=== PATIENT | female | born 1945 | race African-American/Black ===

== ENCOUNTER 2016-05-04 20:06 | Inpatient (IN) | payer OTHER ==
--- NOTE | 2016-05-04 20:26 | PDOC ---
History of Present Illness - General History Source: Patient Exam Limitations: No Limitations - History of Present Illness Initial Comments: 05/04/16 21:45 The patient is a 70-year-old female with a significant past medical history of afib and hypertension, and presents to the emergency department with labored breathing, sore throat, chills, and a non-productive cough for 2 days. She reports that the sore throat is severe, and that it has been chilly at work and at home (she has not had heat at home recently). She reports that this respiratory episode occurs annually around this time of the year. The patient denies any sick contacts and loss of appetite. She denies any body aches or swelling that is different from baseline. She denies getting a flu shot. The patient denies chest pain, palpitations, headache and dizziness. The patient denies fever, nausea, vomit, diarrhea and constipation. The patient denies dysuria, frequency, urgency and hematuria. Allergies: NKDA Other PMHx: Arthritis injections Social History: Denies tobacco, ETOH, and drug use. PCP: Dr. Cruz <Susanna Greer - Last Filed: 05/04/16 21:45> <Jennifer Blount - Last Filed: 05/05/16 03:56> - General Chief Complaint: Respiratory Stated Complaint: CONGESTION Time Seen by Provider: 05/04/16 20:26 Past History <Susanna Greer - Last Filed: 05/04/16 21:45> - Past Medical History HTN: Yes Thyroid Disease: Yes (found nodules bilaterally) - Immunization History Immunization Up to Date: Yes (no flu vaccine) - Psycho/Social/Smoking Cessation Hx Anxiety: No Suicidal Ideation: No Smoking Status: No Smoking History: Never smoked Have you smoked in the past 12 months: No Number of Cigarettes Smoked Daily: 0 Hx Alcohol Use: No Drug/Substance Use Hx: No Substance Use Type: None Hx Substance Use Treatment: No <Jennifer Blount - Last Filed: 05/05/16 03:56> - Past Medical History Allergies/Adverse Reactions: Allergies Allergy/AdvReac Type Severity Reaction Status Date / Time No Known Allergies Allergy Verified 05/04/16 20:18 Home Medications: Ambulatory Orders Metoprolol Succinate [Toprol XL -] 50 mg PO DAILY 05/21/11 Olmesartan/Amlodipin/Hcthiazid [Tribenzor 40-5-25 mg Tablet] 1 each PO DAILY Dabigatran Etexilate Mesylate [Pradaxa -] 150 mg PO BID 05/04/16 Pravastatin Sodium 10 mg PO DAILY 05/04/16 Review of Systems - Review of Systems Able to Perform ROS?: Yes Comments:: 05/04/16 21:45 CONSTITUTIONAL: Present: (+) chills Absent: fever, diaphoresis, generalized weakness, malaise, loss of appetite HEENT: Present: (+) sore throat Absent: rhinorrhea, nasal congestion, throat swelling, difficulty swallowing, mouth swelling, ear pain, eye pain, visual changes CARDIOVASCULAR: Absent: chest pain, syncope, palpitations, irregular heart rate, lightheadedness , peripheral edema RESPIRATORY: Present: (+) cough, (+) shortness of breath Absent: dyspnea with exertion, orthopnea, wheezing, stridor, hemoptysis GASTROINTESTINAL: Absent: abdominal pain, abdominal distension, nausea, vomiting, diarrhea, constipation, melena, hematochezia GENITOURINARY: Absent: dysuria, frequency, urgency, hesitancy, hematuria, flank pain, genital pain MUSCULOSKELETAL: Absent: myalgia, arthralgia, joint swelling SKIN: Absent: rash, itching, pallor HEMATOLOGIC/IMMUNOLOGIC: Absent: easy bleeding, easy bruising, lymphadenopathy, frequent infections ENDOCRINE: Absent: unexplained weight gain, unexplained weight loss, heat intolerance, cold intolerance NEUROLOGIC: Absent: headache, focal weakness or paresthesias, dizziness, unsteady gait, seizure, mental status changes, bladder or bowel incontinence PSYCHIATRIC: Absent: anxiety, depression, suicidal or homicidal ideation, hallucinations. <Susanna Greer - Last Filed: 05/04/16 21:45> *Physical Exam - Vital Signs Last Vital Signs Temp Pulse Resp BP Pulse Ox 99.9 F H 82 20 154/89 97 05/04/16 20:18 05/04/16 20:18 05/04/16 20:18 05/04/16 21:23 05/04/16 20:18 - Physical Exam Comments: 05/04/16 21:46 GENERAL: Well developed, well nourished. Awake and alert. No acute distress. (+) Afebrile. HEENT: Normocephalic, atraumatic. PERRLA, EOMI. No conjunctival pallor. Sclera are non- icteric. Moist mucous membranes. Oropharynx is clear. NECK: Supple. Full ROM. No JVD. Carotid pulses 2+ and symmetric, without bruits. No thyromegaly. No lymphadenopathy. CARDIOVASCULAR: (+) Atrial fibrillation. Regular rate. No murmurs, rubs, or gallops. Distal pulses are 2+ and symmetric. PULMONARY: (+) Right-sided wheezing greater than left side. No rales or rhonchi. ABDOMINAL: Soft. Non-tender. Non-distended. No rebound or guarding. No organomegaly. Normoactive bowel sounds. MUSCULOSKELETAL Normal range of motion at all joints. No bony deformities or tenderness. No CVA tenderness/flank pain. EXTREMITIES: (+) Pitting edema midway up to the calves. No cyanosis. No clubbing. SKIN: Warm and dry. Normal capillary refill. No rashes. No jaundice. NEUROLOGICAL: Alert, awake, appropriate. Cranial nerves 2-12 intact. No deficits to light touch and temperature in face, upper extremities and lower extremities. No motor deficits in the in face, upper extremities and lower extremities. Normoreflexic in the upper and lower extremities. Normal speech. Toes are down- going bilaterally. Gait is normal without ataxia. PSYCHIATRIC: Cooperative. Good eye contact. Appropriate mood and affect. <Susanna Greer - Last Filed: 05/04/16 21:45> - Vital Signs Last Vital Signs Temp Pulse Resp BP Pulse Ox 99.9 F H 82 20 171/86 97 05/04/16 20:18 05/04/16 20:18 05/04/16 20:18 05/04/16 20:18 05/04/16 20:18 <Jennifer Blount - Last Filed: 05/05/16 03:56> ED Treatment Course - Medications Given in the ED: ED Medications Discontinued Medications Generic Name Dose Route Start Last Admin Trade Name Freq PRN Reason Stop Dose Admin Albuterol/Ipratropium 1 amp 05/04/16 20:54 05/04/16 20:54 Duoneb - NEB 05/04/16 20:55 1 amp ONCE ONE Administration <Susanna Greer - Last Filed: 05/04/16 21:45> - LABORATORY CBC & Chemistry Diagram: 05/04/16 22:18 05/04/16 23:27 <Jennifer Blount - Last Filed: 05/05/16 03:56> Medical Decision Making - Medical Decision Making 05/04/16 21:33 Pt comes with cough and cold; states that she had no heat in her house. She needs oil to heat her home. She comes to the ER for cough, sore throat, low grade temp. Pt has AFIB and HTN and she is complaint with all her meds. 05/05/16 03:54 Pt's repeat temp is 102 and she will be treated with levaquin for pneumonia vs UTI. She has been moore cultured and she will be admitted, as she is dehydrated, renal; insufficiency and cough and r/o pneumonia; r/o UTI.PMD is Annabu; Dr. Blue will admit the patient. <Jennifer Blount - Last Filed: 05/05/16 03:56> *DC/Admit/Observation/Transfer - Attestations Scribe Attestion: 05/04/16 21:46 Documentation prepared by Susanna Greer, acting as medical transcriber for Jennifer Blount MD. <Susanna Greer - Last Filed: 05/04/16 21:45> - Discharge Dispostion Admit: Yes <Jennifer Blount - Last Filed: 05/05/16 03:56> Diagnosis at time of Disposition: Upper respiratory infection, Renal insufficiency, Pneumonia, Cough - Referrals
[2016-05-04] MEDS ORDERED: ALBUTEROL SO4 2.5/IPRATROPIUM 0.5 INH SOL 3 ML VIAL.NEB. NEB ONE (20:54)
[2016-05-04 22:40] LABS: BASOPHIL 0.6 % (0-2.0); EOSINOPHIL 0.4 % (0-4.5); MCH 31.1 pg (25.7-33.7); MCHC 32.7 g/dl (32.0-36.0); MEAN CELL VOLUME 95.2 fl (80-96); MEAN PLT VOLUME 10.3 fl (7.5-11.1); NEUTROPHILS 82.8 % (42.8-82.8); PLATELET COUNT 260 K/MM3 (134-434); RDW 13.5 % (11.6-15.6); WHITE BLOOD COUNT 15.2 K/mm3 (4.0-10.0)
[2016-05-05 00:49] LABS: ALBUMIN 3.3 g/dl (3.4-5.0); BILIRUBIN,TOTAL 1.4 mg/dL (0.2-1.0); CALCIUM 8.8 mg/dL (8.5-10.1); CREATININE 1.4 mg/dL (0.55-1.02); TOT PROT 6.8 g/dl (6.4-8.2)
[2016-05-05] MEDS ORDERED: SODIUM CHLORIDE 0.9% 500 ML INFUS.BAG IV ONE (01:01)
[2016-05-05] MEDS ORDERED: LEVOFLOXACIN 500 MG IVPB 100 ML IVPB ONE (02:22)
[2016-05-05] MEDS ORDERED: ACETAMINOPHEN 325 MG TABLET (FP) ONE (02:29)
[2016-05-05] MEDS ORDERED: LEVOFLOXACIN 500 MG TABLET (FP) ONE (02:29)
[2016-05-05] MEDS ORDERED: ACETAMINOPHEN 325 MG TABLET (FP) PO ONE (02:30)
[2016-05-05 03:14] LABS: URINE APPEARANCE SLCLOUDY; URINE BILIRUBIN NEGATIVE (NEGATIVE); URINE BLOOD NEGATIVE (NEGATIVE); URINE COLOR YELLOW; URINE GLUCOSE (UA) NEGATIVE (NEGATIVE); URINE KETONE TRACE (NEGATIVE); URINE LEUK ESTERASE NEGATIVE (NEGATIVE); URINE NITRITE NEGATIVE (NEGATIVE); URINE PROTEIN NEGATIVE (NEGATIVE); URINE UROBILINOGEN NEGATIVE E.U./dl (0.2-1.0)
[2016-05-05 04:21] VITALS: BMI 39.6
[2016-05-05] MEDS ORDERED: ALBUTEROL SO4 2.5/IPRATROPIUM 0.5 INH SOL 3 ML VIAL.NEB. NEB PRN (06:28)
--- NOTE | 2016-05-05 08:27 | CON.CARD ---
Consult Consult Specialty:: Cardiology Referred by:: Dr. Blue Reason for Consultation:: Elevated BNP - History of Present Illness Chief Complaint: Fatigue, cough, dyspnea since Friday History of Present Illness: 70 yo female with paroxysmal atrial fibrillation (on Pradaxa), HTN, who was admitted with fatigue, sore throat, and non-productive cough, which began on Friday but has worsened over the past 2 days. Cardiology was consulted for evaluation of elevated BNP of 387. Patient was last seen by me in the office at [facility] on 03/08/16 and was diagnosed with new onset paroxysmal atrial fibrillation at that time and started on Pradaxa. She was also to have an echocardiogram through Dr. Cruz's office. However, patient reports that she was not had the echo yet. Denies chest pain, palpitations, orthopnea, or worsening leg edema. Denies melena, hematochezia, or hematemesis. CXR demonstrates cardiomegaly, but no reported infiltrates or effusions. ECG demonstrated sinus rhythm with LAFB and non-specific T wave abnormalities. - History Source History Provided By: Patient Limitations to Obtaining History: No Limitations - Past Medical History Cardio/Vascular: Yes: AFIB (paroxysmal afib diagnosed 03/08/16 (on Pradaxa)), CAD (Non-obstructive CAD per 03/12/11 cardiac cath), HTN, Hyperlipdemia Rheumatology: Yes: Gout - Past Surgical History Past Surgical History: Yes: None - Alcohol/Substance Use Hx Alcohol Use: No History of Substance Use: reports: None - Smoking History Smoking history: Never smoked Have you smoked in the past 12 months: No Aproximately how many cigarettes per day: 0 Home Medications - Allergies Allergies/Adverse Reactions: Allergies Allergy/AdvReac Type Severity Reaction Status Date / Time No Known Allergies Allergy Verified 05/04/16 20:18 - Home Medications Home Medications: Ambulatory Orders Metoprolol Succinate [Toprol XL -] 50 mg PO DAILY 05/21/11 Olmesartan/Amlodipin/Hcthiazid [Tribenzor 40-5-25 mg Tablet] 1 each PO DAILY Dabigatran Etexilate Mesylate [Pradaxa -] 150 mg PO BID 05/04/16 Pravastatin Sodium 10 mg PO DAILY 05/04/16 Family Disease History - Family Disease History Family Disease History: Heart Disease: Mother (pancreatic cancer, hypertension) , CA: Mother, Sister ( from malignant optic nerve tumor at age 31) Review of Systems - Review of Systems Constitutional: reports: Malaise HENT: reports: Other (sore throat) Respiratory: reports: Cough Gastrointestinal: denies: Abdominal Pain, Diarrhea, Melena, Nausea, Rectal Bleeding, Vomiting, Vomiting Blood Genitourinary: reports: No Symptoms Musculoskeletal: reports: No Symptoms Neurological: reports: No Symptoms Endocrine: reports: No Symptoms Hematology/Lymphatic: reports: No Symptoms Psychiatric: reports: No Symptoms Vital Signs: Vital Signs Temperature 98.4 F 05/05/16 06:00 Pulse Rate 73 05/05/16 06:00 Respiratory Rate 18 05/05/16 06:00 Blood Pressure 122/66 05/05/16 06:00 O2 Sat by Pulse Oximetry (%) 95 05/05/16 04:30 Constitutional: Yes: No Distress, Obese Eyes: Yes: Conjunctiva Clear, EOM Intact HENT: Yes: Atraumatic, Normocephalic Respiratory: Yes: CTA Bilaterally Gastrointestinal: Yes: Normal Bowel Sounds, Soft. No: Tenderness Cardiovascular: Yes: Regular Rate and Rhythm JVD: No Carotid Bruit: No Heart Sounds: Yes: S1, S2 Murmur: No: Systolic Murmur Extremities: Yes: WNL Edema: LLE: Trace, RLE: Trace Peripheral Pulses WNL: Yes Neurological: Yes: Alert, Oriented, Cran Nerves II-XII Intact Psychiatric: Yes: WNL - Other Data 05/04/16 ECG: Sinus with PACs, LAFB, non-specific T wave abnormalities Echo: Report Reviewed (08/31/14 Echo: Normal LV size and wall motion. LVEF 68%. Conc LVH. Grade II diastolic dysfunction. Mild MR. Mild TR.) Holter: Report Reviewed (06/16/15: Sinus rhythm, ave HR 62 (range 46-109 bpm), PVCs, sinus arrhythmia) Prior Cardiac Procedures: Cardiac Catheterization (03/12/11 Cardiac cath: LVEF 60%, mild diffuse LAD disease, 30-50% mid RCA) Imaging - Results Chest X-ray: Report Reviewed (Cardiomegaly.), Image Reviewed Other: Other (01/12/15 Dipyridamole Myoview: Probably normal myocardial perfusion. Breast attenuation artifact. LVEF 57%.) Assessment/Plan 70 yo female with paroxysmal atrial fibrillation (on Pradaxa), HTN, who was admitted with fatigue, sore throat, and non-productive cough, which began on Friday but has worsened over the past 2 days. Cardiology was consulted for evaluation of elevated BNP of 387. CXR demonstrates cardiomegaly, but no reported infiltrates or effusions. ECG demonstrated sinus rhythm with LAFB and non-specific T wave abnormalities. Despite mildly elevated BNP, no clinical suggestion of heart failure. Suspect patient's symptoms are due to viral URI. RECS: Echocardiogram to assess LV function and structural heart disease given recently diagnosed paroxysmal afib and elevated BNP. Continue metoprolol succinate 50 mg po daily Continue pravastatin 40 mg po daily Continue Pradaxa 150 mg po bid Patient normal takes Tribenzor 40-5-25 mg po daily. However, this med is not on formulary. Will give individual equivalents (amlodipine 5 mg, HCTZ 25 mg, and will substitute valsartan 160 mg for olmesartan 40 mg). If echo is unremarkable, patient may be discharged from cardiac standpoint. Will follow. Call with questions.
[2016-05-05 09:00] LABS: BASOPHIL 0.7 % (0-2.0); EOSINOPHIL 0.1 % (0-4.5); MCH 31.3 pg (25.7-33.7); MCHC 32.6 g/dl (32.0-36.0); MEAN PLT VOLUME 10.4 fl (7.5-11.1); NEUTROPHILS 83.6 % (42.8-82.8); PLATELET COUNT 268 K/MM3 (134-434); WHITE BLOOD COUNT 18.5 K/mm3 (4.0-10.0)
[2016-05-05] MEDS: HYDROCHLOROTHIAZIDE 25 MG TABLET (FP) PO SCH (09:09)
[2016-05-05] MEDS: DABIGATRAN ETEXILATE MESYLATE 150 MG CAPSULE PO SCH ×2 (09:09→21:40)
[2016-05-05] MEDS: METOPROLOL SUCCINATE 25 MG TAB.SR.24H (FP) PO SCH (09:09)
[2016-05-05] MEDS: amLODIPine BESYLATE 5 MG TABLET (FP) PO SCH (09:10)
[2016-05-05] MEDS: VALSARTAN 160 MG TABLET (UD) PO SCH (09:11)
[2016-05-05 09:27] LABS: ALBUMIN 3.1 g/dl (3.4-5.0); BILIRUBIN,TOTAL 1.7 mg/dL (0.2-1.0); CALCIUM 8.9 mg/dL (8.5-10.1); CREATININE 1.3 mg/dL (0.55-1.02); TOT PROT 6.8 g/dl (6.4-8.2)
[2016-05-05 09:30] LABS: TROPONIN I 0.02 ng/ml (0.00-0.05)
[2016-05-05] MEDS ORDERED: HCTHIAZID PO SCH (10:00)
[2016-05-05] MEDS ORDERED: OLMESARTAN PO SCH (10:00)
[2016-05-05] MEDS ORDERED: VALSARTAN 160 MG TABLET (UD) PO SCH (10:00)
[2016-05-05] MEDS ORDERED: PNEUMOC 13-VAL CONJ-DIP CRM/PF 0.5 ML DISP.SYRIN IM ONE (10:00)
[2016-05-05] MEDS ORDERED: INFLUENZA VACCINE 45 MCG/0.5 ML (MDV 16-17) IM ONE (10:00)
[2016-05-05] MEDS ORDERED: AMLODIPIN PO SCH (10:00)
[2016-05-05] MEDS ORDERED: HEPARIN NA (PORCINE) 5,000 UNITS/ML 1ML VIAL SQ SCH (10:00)
[2016-05-05] MEDS ORDERED: [UNRECOGNIZED DRUG - OTHER] PO SCH (10:00)
--- NOTE | 2016-05-05 10:13 | HP ---
Admitting History and Physical - Primary Care Physician PCP: Delio Cruz - Admission Chief Complaint: uri History Source: Medical Record - Past Medical History Cardiovascular: Yes: AFIB (paroxysmal afib diagnosed 03/08/16 (on Pradaxa)), CAD (Non-obstructive CAD per 03/12/11 cardiac cath), HTN, Hyperlipdemia Rheumatology: Yes: Gout - Past Surgical History Past Surgical History: Yes: None - Smoking History Smoking history: Never smoked Have you smoked in the past 12 months: No Aproximately how many cigarettes per day: 0 - Alcohol/Substance Use Hx Alcohol Use: No History of Substance Use: reports: None Home Medications - Allergies Allergies/Adverse Reactions: Allergies Allergy/AdvReac Type Severity Reaction Status Date / Time No Known Allergies Allergy Verified 05/04/16 20:18 - Home Medications Home Medications: Ambulatory Orders Metoprolol Succinate [Toprol XL -] 50 mg PO DAILY 05/21/11 Olmesartan/Amlodipin/Hcthiazid [Tribenzor 40-5-25 mg Tablet] 1 each PO DAILY Dabigatran Etexilate Mesylate [Pradaxa -] 150 mg PO BID 05/04/16 Pravastatin Sodium 10 mg PO DAILY 05/04/16 Family Disease History - Family Disease History Family Disease History: Heart Disease: Mother (pancreatic cancer, hypertension) , CA: Mother, Sister ( from malignant optic nerve tumor at age 31) Physical Examination Vital Signs: Vital Signs Temperature 99.4 F 05/05/16 08:40 Pulse Rate 106 H 05/05/16 08:40 Respiratory Rate 20 05/05/16 08:40 Blood Pressure 113/74 05/05/16 08:40 O2 Sat by Pulse Oximetry (%) 95 05/05/16 04:30 Labs: CBC, BMP 05/05/16 08:25 05/05/16 08:25 Imaging - Results Chest X-ray: Report Reviewed Ultrasound: Report Reviewed Problem List - Problems (1) Cough Code(s): R05 - COUGH (2) Pneumonia Code(s): J18.9 - PNEUMONIA, UNSPECIFIED ORGANISM (3) Renal insufficiency Code(s): N28.9 - DISORDER OF KIDNEY AND URETER, UNSPECIFIED (4) Upper respiratory infection Code(s): J06.9 - ACUTE UPPER RESPIRATORY INFECTION, UNSPECIFIED (5) Atrial fibrillation Code(s): I48.91 - UNSPECIFIED ATRIAL FIBRILLATION Assessment/Plan (1) Cough Code(s): R05 - COUGH pulm & id consulted iv abx o2 n/c (2) Pneumonia Code(s): J18.9 - PNEUMONIA, UNSPECIFIED ORGANISM (3) Renal insufficiency Code(s): N28.9 - DISORDER OF KIDNEY AND URETER, UNSPECIFIED renal consulted improved renal sono shows no obstruction (4) Upper respiratory infection Code(s): J06.9 - ACUTE UPPER RESPIRATORY INFECTION, UNSPECIFIED (5) Atrial fibrillation Code(s): I48.91 - UNSPECIFIED ATRIAL FIBRILLATION trop neg bnp increased appreciate cardio note - f/u echo [employer]
--- NOTE | 2016-05-05 10:28 | CON.PULM ---
Consult Consult Specialty:: PULM/CCM Referred by:: SUSAN Reason for Consultation:: SOB - History of Present Illness Chief Complaint: SOB / fever History of Present Illness: 70 F, Paroxysmal atrial fibrillation on Pradaxa and HTN. (+) snoring and possible OSAS (has never been screened). Admitted via the ER due to fatigue, sore throat, chills, rigors, and non- productive cough. No travel history or sick contacts. No hemoptysis. 102 fever documented. CXR : no acute process - History Source History Provided By: Patient Limitations to Obtaining History: No Limitations - Past Medical History Cardio/Vascular: Yes: AFIB (paroxysmal afib diagnosed 03/08/16 (on Pradaxa)), CAD (Non-obstructive CAD per 03/12/11 cardiac cath), HTN, Hyperlipdemia Rheumatology: Yes: Gout - Past Surgical History Past Surgical History: Yes: None - Alcohol/Substance Use Hx Alcohol Use: No History of Substance Use: reports: None - Smoking History Smoking history: Never smoked Have you smoked in the past 12 months: No Aproximately how many cigarettes per day: 0 Home Medications - Allergies Allergies/Adverse Reactions: Allergies Allergy/AdvReac Type Severity Reaction Status Date / Time No Known Allergies Allergy Verified 05/04/16 20:18 - Home Medications Home Medications: Ambulatory Orders Metoprolol Succinate [Toprol XL -] 50 mg PO DAILY 05/21/11 Olmesartan/Amlodipin/Hcthiazid [Tribenzor 40-5-25 mg Tablet] 1 each PO DAILY Dabigatran Etexilate Mesylate [Pradaxa -] 150 mg PO BID 05/04/16 Pravastatin Sodium 10 mg PO DAILY 05/04/16 Family Disease History - Family Disease History Family Disease History: Heart Disease: Mother (pancreatic cancer, hypertension) , CA: Mother, Sister ( from malignant optic nerve tumor at age 31) Review of Systems - Review of Systems Constitutional: reports: Chills, Fever, Lethargy, Malaise, Weakness. denies: Night Sweats, Unintentional Wgt. Loss Eyes: reports: No Symptoms HENT: reports: Difficult Swallowing, Nasal Congestion, Throat Pain. denies: Gingival Bleeding, Hearing Loss, Toothache Neck: reports: No Symptoms Cardiovascular: reports: Shortness of Breath. denies: Chest Pain, Edema, Palpitations Respiratory: reports: Cough, Snoring, SOB, SOB on Exertion. denies: Hemoptysis , Wheezing Gastrointestinal: reports: No Symptoms Genitourinary: reports: No Symptoms Breasts: reports: No Symptoms Reported Musculoskeletal: reports: No Symptoms Integumentary: reports: No Symptoms Neurological: reports: No Symptoms Endocrine: reports: No Symptoms Hematology/Lymphatic: reports: No Symptoms Psychiatric: reports: No Symptoms Physical Exam Vital Sings: Vital Signs Temperature 99.4 F 05/05/16 08:40 Pulse Rate 106 H 05/05/16 08:40 Respiratory Rate 20 05/05/16 08:40 Blood Pressure 113/74 05/05/16 08:40 O2 Sat by Pulse Oximetry (%) 95 05/05/16 04:30 Constitutional: Yes: No Distress, Calm, Obese Eyes: Yes: Conjunctiva Clear, EOM Intact HENT: Yes: Atraumatic, Normocephalic, Pharyngeal Erythema Neck: Yes: Supple, Trachea Midline Cardiovascular: Yes: Regular Rate and Rhythm Respiratory: Yes: CTA Bilaterally. No: Accessory Muscle Use, Rales, Rhonchi, Stridor, Wheezes ...Inspection: Yes: WNL ...Clubbing: No Gastrointestinal: Yes: Normal Bowel Sounds, Soft, Abdomen, Obese Renal/: Yes: WNL Musculoskeletal: Yes: WNL Extremities: Yes: WNL Edema: No Peripheral Pulses WNL: Yes Integumentary: Yes: WNL Neurological: Yes: WNL, Alert, Oriented ...Motor Strength: WNL Psychiatric: Yes: WNL, Alert, Oriented Labs: CBC, BMP 05/05/16 08:25 05/05/16 08:25 Imaging - Results Chest X-ray: Report Reviewed, Image Reviewed Problem List - Problems (1) Cough Code(s): R05 - COUGH (2) Renal insufficiency Code(s): N28.9 - DISORDER OF KIDNEY AND URETER, UNSPECIFIED (3) Upper respiratory infection Code(s): J06.9 - ACUTE UPPER RESPIRATORY INFECTION, UNSPECIFIED (4) Atrial fibrillation Code(s): I48.91 - UNSPECIFIED ATRIAL FIBRILLATION Assessment/Plan PLAN: Will start on Tamiflu No ABX for now Would monitor off systemic steroids O2 as needed Either mask/isolation VTE prophylaxis Sleep apnea screening after discharge Will follow Thank you. Dr Richter
[2016-05-05] MEDS ORDERED: PT OWN MED DRAWER 7, Y5N ONE (10:32)
--- NOTE | 2016-05-05 10:48 | CONSULT ---
Consult - text type - Consultation Consultation Note: Renal Consult for VLAD vs CKD This is a 70 year old woman with PMhx of Afib ON pradaxa, Hypertension (x 10 years) who presented with cough and chills and admitted for Fever/URI r/o Flu and found to have BUN/Cr of 22/1.4. Pt denies any CKD history. No Hx of Kidney stones, frequent UTI's. Reports that BP has been well controlled. No NSAID use. No Lisa/ARB. No hematuria or flank pain. No Recent Abx use. No rash. Reports good urine output. Has slight decrease in oral intake. No SOB. + Chest pain with cough. PMhx: as above Allergies: NKDA Family hx: NC Social Hx: No T/A/D ROS: as per HPI, all other pertinent ros negative Home Meds: Home Medications Medication Instructions Recorded Metoprolol Succinate [Toprol XL -] 50 mg PO DAILY 05/21/11 Olmesartan/Amlodipin/Hcthiazid 1 each PO DAILY 08/12/14 [Tribenzor 40-5-25 mg Tablet] Dabigatran Etexilate Mesylate 150 mg PO BID 05/04/16 [Pradaxa -] Pravastatin Sodium 10 mg PO DAILY 05/04/16 Vital Signs Temperature 99.4 F 05/05/16 08:40 Pulse Rate 106 H 05/05/16 08:40 Respiratory Rate 20 05/05/16 08:40 Blood Pressure 113/74 05/05/16 08:40 O2 Sat by Pulse Oximetry (%) 95 05/05/16 04:30 Intake & Output 05/02/16 05/03/16 05/04/16 05/05/16 23:59 23:59 23:59 23:59 Weight 230 lb 224 lb Gen: NAD, Coughing HEENT: NC/AT, MMM, No JVD CVS: irregular, NO M/R Lungs: CTA, no rales or wheeze Abd: soft NT/ND Ext: Trace to 1+ edema in the LE, no clubbing or cyanosis Neuro: No focal defects CBC, BMP 05/05/16 08:25 05/05/16 08:25 Laboratory Tests 05/05/16 05/05/16 05/05/16 03:00 08:25 08:25 MCV 96.0 Calcium 8.9 Total Bilirubin 1.7 H D AST 12 L ALT 12 Alkaline Phosphatase 80 Total Protein 6.8 Albumin 3.1 L Urine pH 6.0 Urine Protein Negative Urine Ketones Trace H Urine Blood Negative Current Medications Albuterol/Ipratropium (Duoneb -) 1 amp NEB Q4H PRN PRN Reason: SHORTNESS OF BREATH Amlodipine Besylate (Norvasc -) 5 mg PO DAILY [facility] Last Admin: 05/05/16 09:10 Dose: 5 mg Dabigatran (Pradaxa -) 150 mg PO BID [facility] Last Admin: 05/05/16 09:09 Dose: 150 mg Hydrochlorothiazide (Hctz -) 25 mg PO DAILY [facility] Last Admin: 05/05/16 09:09 Dose: 25 mg Metoprolol Succinate (Toprol Xl -) 50 mg PO DAILY [facility] Last Admin: 05/05/16 09:09 Dose: 50 mg Non-Formulary Medication (Pravastatin Sodium [Pravastatin Sodium]) 10 mg PO [facility] Oseltamivir Phosphate (Tamiflu -) 75 mg PO BID [facility] Stop: 05/10/16 10:29 Valsartan (Diovan -) 160 mg PO DAILY [facility] Last Admin: 05/05/16 09:11 Dose: 160 mg A/P 70 year old woman with PMhx of Afib ON pradaxa, Hypertension (x 10 years) who presented with cough and chills and admitted for Fever/URI r/o Flu and found to have BUN/Cr of 22/1.4. #VLAD vs. CKD No history of CKD Check UPCR, FeNA Trend BUN/Cr continue Valsartan/HCTZ for now Check Renal US to access kidney size and texture Dose all meds for Cr Cl less then 50 #URI/r/o Flu/Leukocytosis Continue emperic Tamiflu F/u cultures #Hypertension continue current meds #Afib continue Pradaxa rate control as per cardiology Thank you Loyd Jeronimo DO
[2016-05-05] MEDS: OSELTAMIVIR PHOSPHATE 75 MG CAPSULE PO SCH ×2 (12:52→21:41)
--- NOTE | 2016-05-05 14:30 | PN ---
Progress Note (short form) - Note Progress Note: ID Consult dictated URI Probable viral syndrome v. Influenza Leukocytosis Pending w/u, empiric levaquin/ Tamiflu Droplet precautions
--- NOTE | 2016-05-05 15:46 | CONS ---
DATE OF CONSULTATION: 05/05/2016 The patient is a 70-year-old female who is evaluated for respiratory tract infection. She was admitted to the hospital on May 04, 2016, with a several-day history of sore throat, subjective fever, chills, shortness of breath, nonproductive cough. She was evaluated in the emergency room. She was noted to have fever of 102. Chest x-ray was negative for acute infiltrate. An influenza rapid test was performed and was negative. Patient states that she had been exposed to a cold environment at her home as she ran out of heating oil. 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 She did not receive influenza vaccine prior to admission. No recent travel or significant pet exposure. She is a nonsmoker. Past medical history positive for osteoarthritis, hypertension, hyperlipidemia, atrial fibrillation, gouty arthritis. No known allergies. MEDICATIONS: Toprol, Pradaxa, pravastatin, Tribenzor. SOCIAL HISTORY: The patient lives at home, is a nonsmoker, nondrinker. No history of illicit drug use. She works with mentally disabled individuals in a half-way. SYSTEMS REVIEW: Neurologic: No loss of consciousness, seizure activity, focal weakness. Cardiac: Negative chest pain or palpitations. Respiratory: As per HPI. Gastrointestinal: Negative vomiting or diarrhea. Genitourinary: Negative for urinary tract infection. LABORATORY DATA: White count 18.5, 83 neutrophils, 8 lymphocytes, 7 monocytes, hematocrit 34.3. BUN 20, creatinine 1.3. Blood and urine cultures are pending. Throat culture negative. Negative streptococcal antigen. Flu rapid test negative. Chest x-ray shows enlarged heart, no focal infiltrate. PHYSICAL EXAMINATION: General: She is awake and alert, she is obese, is not acutely short of breath. Positive dry cough. Vital Signs: Temperature 99.4. T-max 102. Blood pressure 113/74. Pulse 106, regular. Respiration 20 per minute. Eyes: Sclerae anicteric. Heart Sounds: S1, S2. Lungs: Clear breath sounds bilaterally. No rhonchi, rales or wheezing. Abdomen: Obese, soft, nontender. Extremities: Positive for edema. IMPRESSION: 1. Upper respiratory tract infection. 2. Probable viral syndrome versus acute influenza. 3. Leukocytosis. 4. Azotemia. Pending workup, empiric Levaquin 750 mg IV piggyback daily. Would continue Tamiflu despite negative influenza antigen. Droplet precautions. Will follow. Thank you for the kind referral. WAYNE MACEDO M.D. [id number]
[2016-05-05] MEDS: PATIENT'S OWN MEDICATION (NON-FORMULARY) (Pravastatin Sodium [Pravastatin Sodium] 10 MG) PO SCH (21:41)
--- NOTE | 2016-05-05 22:11 | EKG ---
Test Reason : Blood Pressure : / mmHG Vent. Rate : 079 BPM Atrial Rate : 079 BPM P-R Int : 188 ms QRS Dur : 104 ms QT Int : 394 ms P-R-T Axes : 068 -51 088 degrees QTc Int : 451 ms SINUS RHYTHM WITH PREMATURE ATRIAL COMPLEXES LEFT AXIS DEVIATION POSSIBLE ANTERIOR INFARCT , AGE UNDETERMINED T-WAVE INVERSION IN ANTERIOR LEADS AND ANTEROLATERAL LEADS ABNORMAL ECG WHEN COMPARED WITH ECG OF 12-AUG-2014 15:40, INVERTED T WAVES HAVE REPLACED NONSPECIFIC T WAVE ABNORMALITY IN LATERAL LEADS Confirmed by SVEN ORTEGA, CARIDAD (2016) on 05/05/2016 10:10:29 PM Referred By: Confirmed By:CARIDAD MACHUCA MD
[2016-05-06 07:54] LABS: BASOPHIL 0.1 % (0-2.0); EOSINOPHIL 0.5 % (0-4.5); MCH 31.1 pg (25.7-33.7); MCHC 32.3 g/dl (32.0-36.0); MEAN CELL VOLUME 96.5 fl (80-96); MEAN PLT VOLUME 10.7 fl (7.5-11.1); NEUTROPHILS 83.6 % (42.8-82.8); PLATELET COUNT 241 K/MM3 (134-434); RDW 13.4 % (11.6-15.6); WHITE BLOOD COUNT 18.7 K/mm3 (4.0-10.0)
[2016-05-06 08:24] LABS: ALBUMIN 3.1 g/dl (3.4-5.0); BILIRUBIN,TOTAL 1.5 mg/dL (0.2-1.0); CALCIUM 8.8 mg/dL (8.5-10.1); CREATININE 1.4 mg/dL (0.55-1.02); TOT PROT 6.5 g/dl (6.4-8.2)
[2016-05-06 08:27] LABS: TROPONIN I 0.03 ng/ml (0.00-0.05)
[2016-05-06] MEDS: LEVOFLOXACIN 750 MG IVPB 150 ML IVPB SCH (09:32)
[2016-05-06] MEDS: HYDROCHLOROTHIAZIDE 25 MG TABLET (FP) PO SCH (09:32)
[2016-05-06] MEDS: DABIGATRAN ETEXILATE MESYLATE 150 MG CAPSULE PO SCH ×2 (09:33→21:21)
[2016-05-06] MEDS: amLODIPine BESYLATE 5 MG TABLET (FP) PO SCH (09:33)
[2016-05-06] MEDS: VALSARTAN 160 MG TABLET (UD) PO SCH (09:33)
[2016-05-06] MEDS: OSELTAMIVIR PHOSPHATE 75 MG CAPSULE PO SCH ×2 (09:34→21:22)
[2016-05-06] MEDS: METOPROLOL SUCCINATE 25 MG TAB.SR.24H (FP) PO SCH (09:34)
--- NOTE | 2016-05-06 09:58 | PN ---
Progress Note (short form) - Note Progress Note: PULMONARY Coughing fits overnight nonproductive with rib pain. No wheezing. Last Vital Signs Temp Pulse Resp BP Pulse Ox 99.2 F 107 H 18 129/88 94 L 05/06/16 05:55 05/06/16 05:55 05/06/16 05:55 05/06/16 05:55 05/05/16 21:00 Gen: NAD in chair Heart: RRR Lung: distant breath sounds, no wheezes, left base rales Abd: soft, nontender Ext: trace edema CBC, BMP 05/06/16 06:05 05/06/16 06:05 Active Medications Albuterol/Ipratropium (Duoneb -) 1 amp NEB Q4H PRN PRN Reason: SHORTNESS OF BREATH Amlodipine Besylate (Norvasc -) 5 mg PO DAILY [facility] Last Admin: 05/06/16 09:33 Dose: 5 mg Dabigatran (Pradaxa -) 150 mg PO BID [facility] Last Admin: 05/06/16 09:33 Dose: 150 mg Hydrochlorothiazide (Hctz -) 25 mg PO DAILY [facility] Last Admin: 05/06/16 09:32 Dose: 25 mg Levofloxacin (Levaquin 750 Mg Premixed Ivpb -) 150 mls @ 100 mls/hr IVPB DAILY [facility] Last Admin: 05/06/16 09:32 Dose: 100 mls/hr Metoprolol Succinate (Toprol Xl -) 50 mg PO DAILY [facility] Last Admin: 05/06/16 09:34 Dose: 50 mg Non-Formulary Medication (Pravastatin Sodium [Pravastatin Sodium]) 10 mg PO HS [facility] Last Admin: 05/05/16 21:41 Dose: Not Given Oseltamivir Phosphate (Tamiflu -) 75 mg PO BID [facility] Stop: 05/10/16 10:29 Last Admin: 05/06/16 09:34 Dose: 75 mg Valsartan (Diovan -) 160 mg PO DAILY [facility] Last Admin: 05/06/16 09:33 Dose: 160 mg A/P URI vs Pneumonia CKD Atrial Fibrillation HTN - continue tamiflu - antibiotics per ID - will change inhaled bronchodilators to standing and PRN - cough suppressants - incentive spirometry - O2 as needed - continue anticoagulation
[2016-05-06] MEDS ORDERED: guaiFENesin/CODEINE 10 ML UNIT-DOSE CUPS PO PRN (10:01)
[2016-05-06] MEDS ORDERED: guaiFENesin/CODEINE 5 ML UNIT-DOSE CUPS PO PRN (10:02)
[2016-05-06] MEDS ORDERED: ALBUTEROL SO4 0.083% IH SOL 2.5 MG/3 ML VIAL.NEB. NEB PRN (10:06)
--- NOTE | 2016-05-06 10:11 | PN ---
Progress Note, Physician History of Present Illness: No new complaints. Continues to cough and has chest pain with coughing only. - Current Medication List Current Medications: Active Medications Albuterol Sulfate (Ventolin 0.083% Nebulizer Soln -) 1 amp NEB Q4H PRN PRN Reason: SHORT OF BREATH/WHEEZING Albuterol/Ipratropium (Duoneb -) 1 amp NEB TID [facility] Amlodipine Besylate (Norvasc -) 5 mg PO DAILY [facility] Last Admin: 05/06/16 09:33 Dose: 5 mg Dabigatran (Pradaxa -) 150 mg PO BID [facility] Last Admin: 05/06/16 09:33 Dose: 150 mg Guaifenesin/Codeine Phosphate (Robitussin Ac -) 10 ml PO Q8H PRN PRN Reason: COUGH Hydrochlorothiazide (Hctz -) 25 mg PO DAILY [facility] Last Admin: 05/06/16 09:32 Dose: 25 mg Levofloxacin (Levaquin 750 Mg Premixed Ivpb -) 150 mls @ 100 mls/hr IVPB DAILY [facility] Last Admin: 05/06/16 09:32 Dose: 100 mls/hr Metoprolol Succinate (Toprol Xl -) 50 mg PO DAILY [facility] Last Admin: 05/06/16 09:34 Dose: 50 mg Non-Formulary Medication (Pravastatin Sodium [Pravastatin Sodium]) 10 mg PO HS [facility] Last Admin: 05/05/16 21:41 Dose: Not Given Oseltamivir Phosphate (Tamiflu -) 75 mg PO BID [facility] Stop: 05/10/16 10:29 Last Admin: 05/06/16 09:34 Dose: 75 mg Valsartan (Diovan -) 160 mg PO DAILY [facility] Last Admin: 05/06/16 09:33 Dose: 160 mg - Objective Vital Signs: Vital Signs Temperature 99.2 F 05/06/16 05:55 Pulse Rate 107 H 05/06/16 05:55 Respiratory Rate 18 05/06/16 05:55 Blood Pressure 129/88 05/06/16 05:55 O2 Sat by Pulse Oximetry (%) 94 L 05/05/16 21:00 Constitutional: Yes: Well Nourished, No Distress Eyes: Yes: Conjunctiva Clear, EOM Intact HENT: Yes: Atraumatic, Normocephalic Cardiovascular: Yes: Regular Rate and Rhythm Respiratory: Yes: CTA Bilaterally Edema: No Neurological: Yes: Alert, Oriented Psychiatric: Yes: WNL Labs: CBC, BMP 05/06/16 06:05 05/06/16 06:05 Assessment/Plan 70 yo female with paroxysmal atrial fibrillation (on Pradaxa), HTN, who was admitted with fatigue, sore throat, and non-productive cough, which began on Friday but has worsened over the past 2 days. Cardiology was consulted for evaluation of elevated BNP of 387. CXR demonstrates cardiomegaly, but no reported infiltrates or effusions. ECG demonstrated sinus rhythm with LAFB and non-specific T wave abnormalities. Despite mildly elevated BNP, no clinical suggestion of heart failure. Suspect patient's symptoms are due to viral URI. RECS: Echocardiogram pending today to assess LV function and structural heart disease given recently diagnosed paroxysmal afib and elevated BNP. Continue metoprolol succinate 50 mg po daily Continue pravastatin 40 mg po daily Continue Pradaxa 150 mg po bid Patient normal takes Tribenzor 40-5-25 mg po daily. However, this med is not on formulary. Will give individual equivalents (amlodipine 5 mg, HCTZ 25 mg, and will substitute valsartan 160 mg for olmesartan 40 mg). If echo is unremarkable, patient may be discharged from cardiac standpoint. Will follow. Call with questions.
--- NOTE | 2016-05-06 10:23 | PN ---
Progress Note, Physician Chief Complaint: ID Tamiflu & Levofloxacin Feels better though dry couph still persistent and has chest pain realted to couphing - Current Medication List Current Medications: Active Medications Albuterol Sulfate (Ventolin 0.083% Nebulizer Soln -) 1 amp NEB Q4H PRN PRN Reason: SHORT OF BREATH/WHEEZING Albuterol/Ipratropium (Duoneb -) 1 amp NEB TID [facility] Amlodipine Besylate (Norvasc -) 5 mg PO DAILY [facility] Last Admin: 05/06/16 09:33 Dose: 5 mg Dabigatran (Pradaxa -) 150 mg PO BID [facility] Last Admin: 05/06/16 09:33 Dose: 150 mg Guaifenesin/Codeine Phosphate (Robitussin Ac -) 10 ml PO Q8H PRN PRN Reason: COUGH Hydrochlorothiazide (Hctz -) 25 mg PO DAILY [facility] Last Admin: 05/06/16 09:32 Dose: 25 mg Levofloxacin (Levaquin 750 Mg Premixed Ivpb -) 150 mls @ 100 mls/hr IVPB DAILY [facility] Last Admin: 05/06/16 09:32 Dose: 100 mls/hr Metoprolol Succinate (Toprol Xl -) 50 mg PO DAILY [facility] Last Admin: 05/06/16 09:34 Dose: 50 mg Non-Formulary Medication (Pravastatin Sodium [Pravastatin Sodium]) 10 mg PO HS [facility] Last Admin: 05/05/16 21:41 Dose: Not Given Oseltamivir Phosphate (Tamiflu -) 75 mg PO BID [facility] Stop: 05/10/16 10:29 Last Admin: 05/06/16 09:34 Dose: 75 mg Valsartan (Diovan -) 160 mg PO DAILY [facility] Last Admin: 05/06/16 09:33 Dose: 160 mg - Objective Vital Signs: Vital Signs Temperature 99.2 F 05/06/16 05:55 Pulse Rate 107 H 05/06/16 05:55 Respiratory Rate 18 05/06/16 05:55 Blood Pressure 129/88 05/06/16 05:55 O2 Sat by Pulse Oximetry (%) 94 L 05/05/16 21:00 Constitutional: Yes: Well Nourished, No Distress Eyes: Yes: WNL, Conjunctiva Clear HENT: Yes: WNL, Atraumatic Neck: Yes: WNL, Supple Cardiovascular: Yes: Regular Rate and Rhythm, S1, S2 Respiratory: Yes: Rales Gastrointestinal: Yes: Soft. No: Tenderness, Epigastrium Edema: No Labs: CBC, BMP 05/06/16 06:05 05/06/16 06:05 Assessment/Plan Microbiology 05/04/16 20:45 Throat Throat Culture - Final 05/04/16 20:45 Throat Group A Strep Rapid Antigen - Final NO BETA HEMOLYTIC STREPTOCOCCI ISOLATED 05/04/16 20:45 Nasopharyngeal Swab Influenza Types A,B Antigen (PRASANTH) - Final 05/04/16 20:45 Nasopharyngeal Swab - Final 05/04/16 23:00 Blood - Peripheral Venous Blood Culture - Preliminary NO GROWTH OBTAINED AFTER 24 HOURS, INCUBATION TO CONTINUE FOR 4 DAYS. 05/04/16 22:15 Blood - Peripheral Venous Blood Culture - Preliminary NO GROWTH OBTAINED AFTER 24 HOURS, INCUBATION TO CONTINUE FOR 4 DAYS. Laboratory Tests 05/06/16 05/06/16 06:05 06:05 WBC 18.7 H Hgb 10.6 L Plt Count 241 BUN 23 H Creatinine 1.4 H Assessment URI bronchititis though pneumonia Persistent WBC elevation out of line with suspected viral illness though could have pneumonia Plan Continue Levofloxacin Repeat the chest xray Tamiflu Moniter the WBC Cecy ORTEGA
--- NOTE | 2016-05-06 12:35 | PN ---
Progress Note, Physician Chief Complaint: sittig eatign lunch backfrom stress test pllerutic chest pain with coughing only says she feels better since admission - Current Medication List Current Medications: Active Medications Albuterol Sulfate (Ventolin 0.083% Nebulizer Soln -) 1 amp NEB Q4H PRN PRN Reason: SHORT OF BREATH/WHEEZING Albuterol/Ipratropium (Duoneb -) 1 amp NEB TID [facility] Amlodipine Besylate (Norvasc -) 5 mg PO DAILY [facility] Last Admin: 05/06/16 09:33 Dose: 5 mg Dabigatran (Pradaxa -) 150 mg PO BID [facility] Last Admin: 05/06/16 09:33 Dose: 150 mg Guaifenesin/Codeine Phosphate (Robitussin Ac -) 10 ml PO Q8H PRN PRN Reason: COUGH Hydrochlorothiazide (Hctz -) 25 mg PO DAILY [facility] Last Admin: 05/06/16 09:32 Dose: 25 mg Levofloxacin (Levaquin 750 Mg Premixed Ivpb -) 150 mls @ 100 mls/hr IVPB DAILY [facility] Last Admin: 05/06/16 09:32 Dose: 100 mls/hr Metoprolol Succinate (Toprol Xl -) 50 mg PO DAILY [facility] Last Admin: 05/06/16 09:34 Dose: 50 mg Non-Formulary Medication (Pravastatin Sodium [Pravastatin Sodium]) 10 mg PO HS [facility] Last Admin: 05/05/16 21:41 Dose: Not Given Oseltamivir Phosphate (Tamiflu -) 75 mg PO BID [facility] Stop: 05/10/16 10:29 Last Admin: 05/06/16 09:34 Dose: 75 mg Valsartan (Diovan -) 160 mg PO DAILY [facility] Last Admin: 05/06/16 09:33 Dose: 160 mg - Objective Vital Signs: Vital Signs Temperature 99.2 F 05/06/16 05:55 Pulse Rate 107 H 05/06/16 05:55 Respiratory Rate 18 05/06/16 05:55 Blood Pressure 129/88 05/06/16 05:55 O2 Sat by Pulse Oximetry (%) 94 L 05/05/16 21:00 Constitutional: Yes: Calm Neck: Yes: Trachea Midline Cardiovascular: Yes: Regular Rate and Rhythm, S1, S2 Respiratory: Yes: CTA Bilaterally Gastrointestinal: Yes: Normal Bowel Sounds, Soft Edema: No Neurological: Yes: Alert, Oriented Labs: CBC, BMP 05/06/16 06:05 05/06/16 06:05 Problem List - Problems (1) Cough Assessment/Plan: elevated WBC viral/pna levaquin nd tamilflu droplet precatuon Code(s): R05 - COUGH (2) Atrial fibrillation Assessment/Plan: on pradaxa Code(s): I48.91 - UNSPECIFIED ATRIAL FIBRILLATION (3) HTN (hypertension) Assessment/Plan: cotminue curremt medication Code(s): I10 - ESSENTIAL (PRIMARY) HYPERTENSION (4) Renal insufficiency Assessment/Plan: renal sono noted conitue current meds Code(s): N28.9 - DISORDER OF KIDNEY AND URETER, UNSPECIFIED
[2016-05-06] MEDS: ALBUTEROL SO4 2.5/IPRATROPIUM 0.5 INH SOL 3 ML VIAL.NEB. NEB SCH (14:20)
--- NOTE | 2016-05-06 15:24 | PN ---
Progress Note, Physician Chief Complaint: patient still coughing. No specific urinary complaints. Not known to have prior renal disease. - Current Medication List Current Medications: Active Medications Albuterol Sulfate (Ventolin 0.083% Nebulizer Soln -) 1 amp NEB Q4H PRN PRN Reason: SHORT OF BREATH/WHEEZING Albuterol/Ipratropium (Duoneb -) 1 amp NEB TID [facility] Last Admin: 05/06/16 14:20 Dose: 1 amp Amlodipine Besylate (Norvasc -) 5 mg PO DAILY [facility] Last Admin: 05/06/16 09:33 Dose: 5 mg Dabigatran (Pradaxa -) 150 mg PO BID [facility] Last Admin: 05/06/16 09:33 Dose: 150 mg Guaifenesin/Codeine Phosphate (Robitussin Ac -) 10 ml PO Q8H PRN PRN Reason: COUGH Hydrochlorothiazide (Hctz -) 25 mg PO DAILY [facility] Last Admin: 05/06/16 09:32 Dose: 25 mg Levofloxacin (Levaquin 750 Mg Premixed Ivpb -) 150 mls @ 100 mls/hr IVPB DAILY [facility] Last Admin: 05/06/16 09:32 Dose: 100 mls/hr Metoprolol Succinate (Toprol Xl -) 50 mg PO DAILY [facility] Last Admin: 05/06/16 09:34 Dose: 50 mg Non-Formulary Medication (Pravastatin Sodium [Pravastatin Sodium]) 10 mg PO HS [facility] Last Admin: 05/05/16 21:41 Dose: Not Given Oseltamivir Phosphate (Tamiflu -) 75 mg PO BID [facility] Stop: 05/10/16 10:29 Last Admin: 05/06/16 09:34 Dose: 75 mg Valsartan (Diovan -) 160 mg PO DAILY [facility] Last Admin: 05/06/16 09:33 Dose: 160 mg - Objective Vital Signs: Vital Signs Temperature 98.7 F 05/06/16 14:53 Pulse Rate 79 05/06/16 14:53 Respiratory Rate 18 05/06/16 14:53 Blood Pressure 119/75 05/06/16 14:53 O2 Sat by Pulse Oximetry (%) 94 L 05/05/16 21:00 Constitutional: Yes: Well Nourished, Anxious Eyes: Yes: Conjunctiva Clear HENT: Yes: WNL Neck: Yes: WNL Cardiovascular: Yes: Regular Rate and Rhythm, S1, S2 Respiratory: Yes: Cough, Rhonchi, Wheezes Gastrointestinal: Yes: Normal Bowel Sounds, Soft, Abdomen, Obese Edema: No Neurological: Yes: Alert, Oriented Psychiatric: Yes: Alert, Oriented Labs: CBC, BMP 05/06/16 06:05 05/06/16 06:05 Problem List - Problems (1) Cough Code(s): R05 - COUGH (2) HTN (hypertension) Code(s): I10 - ESSENTIAL (PRIMARY) HYPERTENSION (3) Pneumonia Code(s): J18.9 - PNEUMONIA, UNSPECIFIED ORGANISM (4) Renal insufficiency Code(s): N28.9 - DISORDER OF KIDNEY AND URETER, UNSPECIFIED (5) Atrial fibrillation Code(s): I48.91 - UNSPECIFIED ATRIAL FIBRILLATION Assessment/Plan 70 y/o female with Acute Respiratory infection and cough. Has azotemia. Possibly acute Renal failure. But can't r/o underlying Chronic Kidney Disease. Concur with the current management Will monitor the renal functions with you. Fadumo eHdrick MD
[2016-05-06] MEDS: PATIENT'S OWN MEDICATION (NON-FORMULARY) (Pravastatin Sodium [Pravastatin Sodium] 10 MG) PO SCH (21:22)
[2016-05-07] MEDS: ALBUTEROL SO4 2.5/IPRATROPIUM 0.5 INH SOL 3 ML VIAL.NEB. NEB SCH ×7 (06:30→23:05)
[2016-05-07 08:10] LABS: BASOPHIL 0.2 % (0-2.0); EOSINOPHIL 0.9 % (0-4.5); MCH 31.3 pg (25.7-33.7); MCHC 32.5 g/dl (32.0-36.0); MEAN CELL VOLUME 96.1 fl (80-96); MEAN PLT VOLUME 10.4 fl (7.5-11.1); NEUTROPHILS 79.1 % (42.8-82.8); PLATELET COUNT 260 K/MM3 (134-434); RDW 12.9 % (11.6-15.6); WHITE BLOOD COUNT 15.1 K/mm3 (4.0-10.0)
[2016-05-07 08:30] LABS: BILIRUBIN,TOTAL 1.1 mg/dL (0.2-1.0); CALCIUM 8.8 mg/dL (8.5-10.1); CREATININE 1.5 mg/dL (0.55-1.02); TOT PROT 6.6 g/dl (6.4-8.2)
[2016-05-07] MEDS: VALSARTAN 160 MG TABLET (UD) PO SCH (10:10)
[2016-05-07] MEDS: OSELTAMIVIR PHOSPHATE 75 MG CAPSULE PO SCH ×2 (10:10→21:26)
[2016-05-07] MEDS: METOPROLOL SUCCINATE 25 MG TAB.SR.24H (FP) PO SCH (10:10)
[2016-05-07] MEDS: HYDROCHLOROTHIAZIDE 25 MG TABLET (FP) PO SCH (10:10)
[2016-05-07] MEDS: amLODIPine BESYLATE 5 MG TABLET (FP) PO SCH (10:10)
[2016-05-07] MEDS: LEVOFLOXACIN 750 MG IVPB 150 ML IVPB SCH (10:10)
[2016-05-07] MEDS: DABIGATRAN ETEXILATE MESYLATE 150 MG CAPSULE PO SCH ×2 (10:10→21:26)
--- NOTE | 2016-05-07 10:18 | PN ---
Progress Note (short form) - Note Progress Note: PULMONARY Still with nonproductive cough. No wheezing. No fevers or chills Last Vital Signs Temp Pulse Resp BP Pulse Ox 98.4 F 92 H 20 129/54 94 L 05/07/16 08:40 05/07/16 08:40 05/07/16 08:40 05/07/16 08:40 05/06/16 21:00 Gen: NAD in chair Heart: RRR Lung: distant breath sounds, no wheezes, left base rales Abd: soft, nontender Ext: trace edema CBC, BMP 05/07/16 06:45 05/07/16 06:45 Active Medications Albuterol Sulfate (Ventolin 0.083% Nebulizer Soln -) 1 amp NEB Q4H PRN PRN Reason: SHORT OF BREATH/WHEEZING Albuterol/Ipratropium (Duoneb -) 1 amp NEB TID [facility] Last Admin: 05/07/16 10:09 Dose: Not Given Albuterol/Ipratropium (Duoneb -) 1 amp NEB QIDR [facility] Amlodipine Besylate (Norvasc -) 5 mg PO DAILY [facility] Last Admin: 05/07/16 10:10 Dose: 5 mg Dabigatran (Pradaxa -) 150 mg PO BID [facility] Last Admin: 05/07/16 10:10 Dose: 150 mg Guaifenesin/Codeine Phosphate (Robitussin Ac -) 10 ml PO Q8H PRN PRN Reason: COUGH Last Admin: 05/06/16 16:32 Dose: 10 ml Hydrochlorothiazide (Hctz -) 25 mg PO DAILY [facility] Last Admin: 05/07/16 10:10 Dose: 25 mg Levofloxacin (Levaquin 750 Mg Premixed Ivpb -) 150 mls @ 100 mls/hr IVPB DAILY [facility] Last Admin: 05/07/16 10:10 Dose: 100 mls/hr Metoprolol Succinate (Toprol Xl -) 50 mg PO DAILY [facility] Last Admin: 05/07/16 10:10 Dose: 50 mg Non-Formulary Medication (Pravastatin Sodium [Pravastatin Sodium]) 10 mg PO HS [facility] Last Admin: 05/06/16 21:22 Dose: Not Given Oseltamivir Phosphate (Tamiflu -) 75 mg PO BID [facility] Stop: 05/10/16 10:29 Last Admin: 05/07/16 10:10 Dose: 75 mg Valsartan (Diovan -) 160 mg PO DAILY [facility] Last Admin: 05/07/16 10:10 Dose: 160 mg A/P URI vs Pneumonia CKD Atrial Fibrillation HTN - continue tamiflu - antibiotics per ID - inhaled bronchodilators standing and PRN - cough suppressants - incentive spirometry - O2 as needed - continue anticoagulation
--- NOTE | 2016-05-07 10:32 | PN ---
Progress Note (short form) - Note Progress Note: Renal Follow up for VLAD/CKD Pt seen and examined at the bedside no acute complaints still has cough no chest pain or sob good urine output Vital Signs Temperature 98.4 F 05/07/16 08:40 Pulse Rate 92 H 05/07/16 08:40 Respiratory Rate 20 05/07/16 08:40 Blood Pressure 129/54 05/07/16 08:40 O2 Sat by Pulse Oximetry (%) 94 L 05/06/16 21:00 Intake & Output 05/04/16 05/05/16 05/06/16 05/07/16 23:59 23:59 23:59 23:59 Intake Total 550 400 Balance 550 400 Weight 230 lb 224 lb Gen: NAD CVS: irregular, NO M/R Lungs: CTA, no rales or wheeze Abd: soft NT/ND Ext: Trace to 1+ edema in the LE, no clubbing or cyanosis CBC, BMP 05/07/16 06:45 05/07/16 06:45 Current Medications Albuterol Sulfate (Ventolin 0.083% Nebulizer Soln -) 1 amp NEB Q4H PRN PRN Reason: SHORT OF BREATH/WHEEZING Albuterol/Ipratropium (Duoneb -) 1 amp NEB TID [facility] Last Admin: 05/07/16 10:09 Dose: Not Given Albuterol/Ipratropium (Duoneb -) 1 amp NEB QIDR [facility] Amlodipine Besylate (Norvasc -) 5 mg PO DAILY [facility] Last Admin: 05/07/16 10:10 Dose: 5 mg Dabigatran (Pradaxa -) 150 mg PO BID [facility] Last Admin: 05/07/16 10:10 Dose: 150 mg Guaifenesin/Codeine Phosphate (Robitussin Ac -) 10 ml PO Q8H PRN PRN Reason: COUGH Last Admin: 05/06/16 16:32 Dose: 10 ml Hydrochlorothiazide (Hctz -) 25 mg PO DAILY [facility] Last Admin: 05/07/16 10:10 Dose: 25 mg Levofloxacin (Levaquin 750 Mg Premixed Ivpb -) 150 mls @ 100 mls/hr IVPB DAILY [facility] Last Admin: 05/07/16 10:10 Dose: 100 mls/hr Metoprolol Succinate (Toprol Xl -) 50 mg PO DAILY [facility] Last Admin: 05/07/16 10:10 Dose: 50 mg Non-Formulary Medication (Pravastatin Sodium [Pravastatin Sodium]) 10 mg PO HS [facility] Last Admin: 05/06/16 21:22 Dose: Not Given Oseltamivir Phosphate (Tamiflu -) 75 mg PO BID [facility] Stop: 05/10/16 10:29 Last Admin: 05/07/16 10:10 Dose: 75 mg Valsartan (Diovan -) 160 mg PO DAILY [facility] Last Admin: 05/07/16 10:10 Dose: 160 mg A/P 70 year old woman with PMhx of Afib ON pradaxa, Hypertension (x 10 years) who presented with cough and chills and admitted for Fever/URI r/o Flu and found to have BUN/Cr of 22/1.4. #VLAD vs. CKD Renal function stable throughout the admission This is likely her baseline renal function Renal US showed aysmetirc kidneys that may represent some degree of renalovascular diseasea UA w/o signifncat proteinuria or sediment Continue Valsartan Avoid NSAID, Nephrotoxins Dose all meds for Cr Cl less then 40 #URI/r/o Flu/Leukocytosis Continue Tamiflu for chest CT today #Hypertension continue current meds BP is at goal #Afib continue Pradaxa rate control as per cardiology Thank you Loyd Jeronimo DO
[2016-05-07] MEDS ORDERED: POTASSIUM CHLORIDE TABS 20 MEQ TABLET.ER (FP) PO ONE (11:15)
--- NOTE | 2016-05-07 11:33 | PN ---
Progress Note, Physician History of Present Illness: C/O COUGH AND PAIN WHEN COUGHING - Current Medication List Current Medications: Active Medications Albuterol Sulfate (Ventolin 0.083% Nebulizer Soln -) 1 amp NEB Q4H PRN PRN Reason: SHORT OF BREATH/WHEEZING Albuterol/Ipratropium (Duoneb -) 1 amp NEB TID [facility] Last Admin: 05/07/16 10:09 Dose: Not Given Albuterol/Ipratropium (Duoneb -) 1 amp NEB QIDR [facility] Amlodipine Besylate (Norvasc -) 5 mg PO DAILY [facility] Last Admin: 05/07/16 10:10 Dose: 5 mg Dabigatran (Pradaxa -) 150 mg PO BID [facility] Last Admin: 05/07/16 10:10 Dose: 150 mg Guaifenesin/Codeine Phosphate (Robitussin Ac -) 10 ml PO Q8H PRN PRN Reason: COUGH Last Admin: 05/06/16 16:32 Dose: 10 ml Hydrochlorothiazide (Hctz -) 25 mg PO DAILY [facility] Last Admin: 05/07/16 10:10 Dose: 25 mg Levofloxacin (Levaquin 750 Mg Premixed Ivpb -) 150 mls @ 100 mls/hr IVPB DAILY [facility] Last Admin: 05/07/16 10:10 Dose: 100 mls/hr Metoprolol Succinate (Toprol Xl -) 50 mg PO DAILY [facility] Last Admin: 05/07/16 10:10 Dose: 50 mg Non-Formulary Medication (Pravastatin Sodium [Pravastatin Sodium]) 10 mg PO HS [facility] Last Admin: 05/06/16 21:22 Dose: Not Given Oseltamivir Phosphate (Tamiflu -) 75 mg PO BID [facility] Stop: 05/10/16 10:29 Last Admin: 05/07/16 10:10 Dose: 75 mg Valsartan (Diovan -) 160 mg PO DAILY [facility] Last Admin: 05/07/16 10:10 Dose: 160 mg - Objective Vital Signs: Vital Signs Temperature 98.4 F 05/07/16 08:40 Pulse Rate 92 H 05/07/16 08:40 Respiratory Rate 20 05/07/16 08:40 Blood Pressure 129/54 05/07/16 08:40 O2 Sat by Pulse Oximetry (%) 94 L 05/06/16 21:00 Cardiovascular: Yes: S1, S2 Respiratory: Yes: Diminished, Rhonchi Gastrointestinal: Yes: Normal Bowel Sounds, Soft Labs: CBC, BMP 05/07/16 06:45 05/07/16 06:45 Problem List - Problems (1) Cough Assessment/Plan: elevated WBC viral/pna levaquin nd tamilflu droplet precaution nebs iv steroids ct of chest Code(s): R05 - COUGH (2) HTN (hypertension) Assessment/Plan: Vital Signs Period Temp Pulse Resp BP Sys/Quevedo Pulse Ox Last 24 Hr 98.4 F-98.8 F 78-103 18-20 119-152/54-94 92-94 Code(s): I10 - ESSENTIAL (PRIMARY) HYPERTENSION (3) Pneumonia Assessment/Plan: as above Code(s): J18.9 - PNEUMONIA, UNSPECIFIED ORGANISM (4) Renal insufficiency Assessment/Plan: renal on case Code(s): N28.9 - DISORDER OF KIDNEY AND URETER, UNSPECIFIED (5) Atrial fibrillation Assessment/Plan: Orders 05/05/16 10:00 Dabigatran Etexilate Mesylate [Pradaxa -] 150 mg PO BID Code(s): I48.91 - UNSPECIFIED ATRIAL FIBRILLATION
--- NOTE | 2016-05-07 13:53 | PN ---
Progress Note, Physician History of Present Illness: No new complaints. Continues to cough and has chest pain with coughing only. - Current Medication List Current Medications: Active Medications Albuterol Sulfate (Ventolin 0.083% Nebulizer Soln -) 1 amp NEB Q4H PRN PRN Reason: SHORT OF BREATH/WHEEZING Albuterol/Ipratropium (Duoneb -) 1 amp NEB TID [facility] Last Admin: 05/07/16 13:45 Dose: Not Given Albuterol/Ipratropium (Duoneb -) 1 amp NEB QIDR [facility] Last Admin: 05/07/16 11:10 Dose: 1 amp Amlodipine Besylate (Norvasc -) 5 mg PO DAILY [facility] Last Admin: 05/07/16 10:10 Dose: 5 mg Dabigatran (Pradaxa -) 150 mg PO BID [facility] Last Admin: 05/07/16 10:10 Dose: 150 mg Guaifenesin/Codeine Phosphate (Robitussin Ac -) 10 ml PO Q8H PRN PRN Reason: COUGH Last Admin: 05/06/16 16:32 Dose: 10 ml Hydrochlorothiazide (Hctz -) 25 mg PO DAILY [facility] Last Admin: 05/07/16 10:10 Dose: 25 mg Levofloxacin (Levaquin 750 Mg Premixed Ivpb -) 150 mls @ 100 mls/hr IVPB DAILY [facility] Last Admin: 05/07/16 10:10 Dose: 100 mls/hr Metoprolol Succinate (Toprol Xl -) 50 mg PO DAILY [facility] Last Admin: 05/07/16 10:10 Dose: 50 mg Non-Formulary Medication (Pravastatin Sodium [Pravastatin Sodium]) 10 mg PO HS [facility] Last Admin: 05/06/16 21:22 Dose: Not Given Oseltamivir Phosphate (Tamiflu -) 75 mg PO BID [facility] Stop: 05/10/16 10:29 Last Admin: 05/07/16 10:10 Dose: 75 mg Valsartan (Diovan -) 160 mg PO DAILY [facility] Last Admin: 05/07/16 10:10 Dose: 160 mg - Objective Vital Signs: Vital Signs Temperature 98.4 F 05/07/16 08:40 Pulse Rate 78 05/07/16 11:41 Respiratory Rate 20 05/07/16 08:40 Blood Pressure 129/54 05/07/16 08:40 O2 Sat by Pulse Oximetry (%) 92 L 05/07/16 11:41 Constitutional: Yes: No Distress Eyes: Yes: Conjunctiva Clear, EOM Intact HENT: Yes: Atraumatic, Normocephalic Cardiovascular: Yes: Regular Rate and Rhythm Respiratory: Yes: Diminished (at left base otherwise clear) Gastrointestinal: Yes: Normal Bowel Sounds, Soft. No: Tenderness Edema: No Peripheral Pulses WNL: Yes Neurological: Yes: Alert, Oriented, Cran Nerves II-XII Intact Psychiatric: Yes: WNL Labs: CBC, BMP 05/07/16 06:45 05/07/16 06:45 Assessment/Plan 70 yo female with paroxysmal atrial fibrillation (on Pradaxa), HTN, who was admitted with fatigue, sore throat, and non-productive cough, which began on Friday but has worsened over the past 2 days. Cardiology was consulted for evaluation of elevated BNP of 387. CXR demonstrates cardiomegaly, but no reported infiltrates or effusions. ECG demonstrated sinus rhythm with LAFB and non-specific T wave abnormalities. Despite mildly elevated BNP, no clinical suggestion of heart failure. Chest CT today (05/07) demonstrates left lower lobe consolidation and small pleural effusion. Echocardiogram on 05/06/16 demonstrated normal LV systolic function, mild MAC, and mild MR. RECS: Continue metoprolol succinate 50 mg po daily Continue pravastatin 40 mg po daily Continue Pradaxa 150 mg po bid Patient normal takes Tribenzor 40-5-25 mg po daily. However, this med is not on formulary. Will give individual equivalents (amlodipine 5 mg, HCTZ 25 mg, and will substitute valsartan 160 mg for olmesartan 40 mg). Management of pneumonia (per chest CT today) as per primary team/pulmonary/ID. Patient is clinically stable from cardiac standpoint on current medical management. Will see prn. Call with questions.
[2016-05-07 14:53] LABS: ERYTHROCYTE SEDIMENTATION RATE 84 mm/hr (0-30)
--- NOTE | 2016-05-07 15:15 | PN ---
Progress Note, Physician History of Present Illness: Feeling better Less cough No c/o chest pain/ dyspnea Temps down Afebrile with elevated WBC - Current Medication List Current Medications: Active Medications Albuterol Sulfate (Ventolin 0.083% Nebulizer Soln -) 1 amp NEB Q4H PRN PRN Reason: SHORT OF BREATH/WHEEZING Albuterol/Ipratropium (Duoneb -) 1 amp NEB TID [facility] Last Admin: 05/07/16 13:45 Dose: Not Given Albuterol/Ipratropium (Duoneb -) 1 amp NEB QIDR [facility] Last Admin: 05/07/16 11:10 Dose: 1 amp Amlodipine Besylate (Norvasc -) 5 mg PO DAILY [facility] Last Admin: 05/07/16 10:10 Dose: 5 mg Dabigatran (Pradaxa -) 150 mg PO BID [facility] Last Admin: 05/07/16 10:10 Dose: 150 mg Guaifenesin/Codeine Phosphate (Robitussin Ac -) 10 ml PO Q8H PRN PRN Reason: COUGH Last Admin: 05/06/16 16:32 Dose: 10 ml Hydrochlorothiazide (Hctz -) 25 mg PO DAILY [facility] Last Admin: 05/07/16 10:10 Dose: 25 mg Levofloxacin (Levaquin 750 Mg Premixed Ivpb -) 150 mls @ 100 mls/hr IVPB DAILY [facility] Last Admin: 05/07/16 10:10 Dose: 100 mls/hr Metoprolol Succinate (Toprol Xl -) 50 mg PO DAILY [facility] Last Admin: 05/07/16 10:10 Dose: 50 mg Non-Formulary Medication (Pravastatin Sodium [Pravastatin Sodium]) 10 mg PO HS [facility] Last Admin: 05/06/16 21:22 Dose: Not Given Oseltamivir Phosphate (Tamiflu -) 75 mg PO BID [facility] Stop: 05/10/16 10:29 Last Admin: 05/07/16 10:10 Dose: 75 mg Valsartan (Diovan -) 160 mg PO DAILY [facility] Last Admin: 05/07/16 10:10 Dose: 160 mg - Objective Vital Signs: Vital Signs Temperature 98.4 F 05/07/16 08:40 Pulse Rate 78 05/07/16 11:41 Respiratory Rate 20 05/07/16 08:40 Blood Pressure 129/54 05/07/16 08:40 O2 Sat by Pulse Oximetry (%) 92 L 05/07/16 11:41 Constitutional: Yes: No Distress Eyes: Yes: Conjunctiva Clear Cardiovascular: Yes: Regular Rate and Rhythm, S1, S2 Respiratory: Yes: Rhonchi Gastrointestinal: Yes: Normal Bowel Sounds, Soft, Abdomen, Obese. No: Tenderness Edema: Yes Labs: CBC, BMP 05/07/16 06:45 05/07/16 06:45 Assessment/Plan LLL pneumonia Possible viral syndrome Fever/ leukocytosis Continue empiric levaquin. Complete course of Tamiflu
[2016-05-07] MEDS: PATIENT'S OWN MEDICATION (NON-FORMULARY) (Pravastatin Sodium [Pravastatin Sodium] 10 MG) PO SCH (21:28)
[2016-05-08] MEDS: ALBUTEROL SO4 2.5/IPRATROPIUM 0.5 INH SOL 3 ML VIAL.NEB. NEB SCH ×5 (06:52→18:58)
[2016-05-08 07:46] LABS: BASOPHIL 0.6 % (0-2.0); EOSINOPHIL 1.2 % (0-4.5); MCH 31.3 pg (25.7-33.7); MCHC 32.7 g/dl (32.0-36.0); MEAN CELL VOLUME 95.7 fl (80-96); MEAN PLT VOLUME 9.6 fl (7.5-11.1); NEUTROPHILS 77.4 % (42.8-82.8); PLATELET COUNT 281 K/MM3 (134-434); RDW 13.2 % (11.6-15.6); WHITE BLOOD COUNT 14.3 K/mm3 (4.0-10.0)
[2016-05-08 08:39] LABS: CALCIUM 8.5 mg/dL (8.5-10.1); CREATININE 1.7 mg/dL (0.55-1.02); MAGNESIUM 2.1 mg/dL (1.8-2.4); PHOSPHOROUS 3.8 mg/dL (2.5-4.9)
--- NOTE | 2016-05-08 08:40 | PN ---
Progress Note, Physician History of Present Illness: C/O COUGH AND PAIN WHEN COUGHING--BETTER TODAY - Current Medication List Current Medications: Active Medications Albuterol Sulfate (Ventolin 0.083% Nebulizer Soln -) 1 amp NEB Q4H PRN PRN Reason: SHORT OF BREATH/WHEEZING Albuterol/Ipratropium (Duoneb -) 1 amp NEB TID [facility] Last Admin: 05/08/16 07:25 Dose: Not Given Albuterol/Ipratropium (Duoneb -) 1 amp NEB QIDR [facility] Last Admin: 05/08/16 06:52 Dose: 1 amp Amlodipine Besylate (Norvasc -) 5 mg PO DAILY [facility] Last Admin: 05/07/16 10:10 Dose: 5 mg Dabigatran (Pradaxa -) 150 mg PO BID [facility] Last Admin: 05/07/16 21:26 Dose: 150 mg Guaifenesin/Codeine Phosphate (Robitussin Ac -) 10 ml PO Q8H PRN PRN Reason: COUGH Last Admin: 05/06/16 16:32 Dose: 10 ml Hydrochlorothiazide (Hctz -) 25 mg PO DAILY [facility] Last Admin: 05/07/16 10:10 Dose: 25 mg Levofloxacin (Levaquin 750 Mg Premixed Ivpb -) 150 mls @ 100 mls/hr IVPB DAILY [facility] Last Admin: 05/07/16 10:10 Dose: 100 mls/hr Metoprolol Succinate (Toprol Xl -) 50 mg PO DAILY [facility] Last Admin: 05/07/16 10:10 Dose: 50 mg Non-Formulary Medication (Pravastatin Sodium [Pravastatin Sodium]) 10 mg PO HS [facility] Last Admin: 05/07/16 21:28 Dose: Not Given Oseltamivir Phosphate (Tamiflu -) 75 mg PO BID [facility] Stop: 05/10/16 10:29 Last Admin: 05/07/16 21:26 Dose: 75 mg Valsartan (Diovan -) 160 mg PO DAILY [facility] Last Admin: 05/07/16 10:10 Dose: 160 mg - Objective Vital Signs: Vital Signs Temperature 98.2 F 05/08/16 06:25 Pulse Rate 90 05/08/16 06:25 Respiratory Rate 16 05/08/16 06:25 Blood Pressure 130/74 05/08/16 06:25 O2 Sat by Pulse Oximetry (%) 92 L 05/07/16 21:00 Cardiovascular: Yes: S1, S2 Respiratory: Yes: Diminished, Rales Gastrointestinal: Yes: Normal Bowel Sounds, Soft Labs: CBC, BMP 05/08/16 06:50 Problem List - Problems (1) Cough Assessment/Plan: elevated WBC viral/pna levaquin nd tamilflu droplet precaution nebs iv steroids ct of chest Code(s): R05 - COUGH (2) HTN (hypertension) Assessment/Plan: Vital Signs Period Temp Pulse Resp BP Sys/Quevedo Pulse Ox Last 24 Hr 98.4 F-98.8 F 78-103 18-20 119-152/54-94 92-94 Code(s): I10 - ESSENTIAL (PRIMARY) HYPERTENSION (3) Pneumonia Assessment/Plan: LLL ABX NEBS Code(s): J18.9 - PNEUMONIA, UNSPECIFIED ORGANISM (4) Renal insufficiency Assessment/Plan: renal on case Code(s): N28.9 - DISORDER OF KIDNEY AND URETER, UNSPECIFIED (5) Atrial fibrillation Assessment/Plan: Orders 05/05/16 10:00 Dabigatran Etexilate Mesylate [Pradaxa -] 150 mg PO BID Code(s): I48.91 - UNSPECIFIED ATRIAL FIBRILLATION
[2016-05-08] MEDS: DABIGATRAN ETEXILATE MESYLATE 150 MG CAPSULE PO SCH ×2 (10:00→22:33)
[2016-05-08] MEDS: VALSARTAN 160 MG TABLET (UD) PO SCH (10:00)
[2016-05-08] MEDS: HYDROCHLOROTHIAZIDE 25 MG TABLET (FP) PO SCH (10:00)
[2016-05-08] MEDS: amLODIPine BESYLATE 5 MG TABLET (FP) PO SCH (10:00)
[2016-05-08] MEDS: OSELTAMIVIR PHOSPHATE 75 MG CAPSULE PO SCH ×2 (10:00→22:31)
[2016-05-08] MEDS: METOPROLOL SUCCINATE 25 MG TAB.SR.24H (FP) PO SCH (10:00)
[2016-05-08] MEDS: LEVOFLOXACIN 750 MG IVPB 150 ML IVPB SCH (10:01)
--- NOTE | 2016-05-08 11:02 | PN ---
Progress Note (short form) - Note Progress Note: Renal Follow up for VLAD/CKD Pt seen and examined at the bedside cough is improved no sob or cheat pain good urine output has pain in left foot 1st digit Has Hx of gout Vital Signs Temperature 98.2 F 05/08/16 06:25 Pulse Rate 90 05/08/16 06:25 Respiratory Rate 16 05/08/16 06:25 Blood Pressure 130/74 05/08/16 06:25 O2 Sat by Pulse Oximetry (%) 92 L 05/07/16 21:00 Intake & Output 05/05/16 05/06/16 05/07/16 05/08/16 23:59 23:59 23:59 23:59 Intake Total 550 400 900 Balance 550 400 900 Weight 224 lb Gen: NAD CVS: irregular, NO M/R Lungs: CTA, no rales or wheeze Abd: soft NT/ND Ext: Trace to 1+ edema in the LE, no clubbing or cyanosis CBC, BMP 05/08/16 06:50 05/08/16 06:50 Current Medications Albuterol Sulfate (Ventolin 0.083% Nebulizer Soln -) 1 amp NEB Q4H PRN PRN Reason: SHORT OF BREATH/WHEEZING Albuterol/Ipratropium (Duoneb -) 1 amp NEB TID [facility] Last Admin: 05/08/16 07:25 Dose: Not Given Albuterol/Ipratropium (Duoneb -) 1 amp NEB QIDR [facility] Last Admin: 05/08/16 06:52 Dose: 1 amp Amlodipine Besylate (Norvasc -) 5 mg PO DAILY [facility] Last Admin: 05/08/16 10:00 Dose: 5 mg Dabigatran (Pradaxa -) 150 mg PO BID [facility] Last Admin: 05/08/16 10:00 Dose: 150 mg Guaifenesin/Codeine Phosphate (Robitussin Ac -) 10 ml PO Q8H PRN PRN Reason: COUGH Last Admin: 05/06/16 16:32 Dose: 10 ml Levofloxacin (Levaquin 750 Mg Premixed Ivpb -) 150 mls @ 100 mls/hr IVPB DAILY [facility] Last Admin: 05/08/16 10:01 Dose: 100 mls/hr Metoprolol Succinate (Toprol Xl -) 50 mg PO DAILY [facility] Last Admin: 05/08/16 10:00 Dose: 50 mg Non-Formulary Medication (Pravastatin Sodium [Pravastatin Sodium]) 10 mg PO HS [facility] Last Admin: 05/07/16 21:28 Dose: Not Given Oseltamivir Phosphate (Tamiflu -) 75 mg PO BID [facility] Stop: 05/10/16 10:29 Last Admin: 05/08/16 10:00 Dose: 75 mg Valsartan (Diovan -) 160 mg PO DAILY [facility] Last Admin: 05/08/16 10:00 Dose: 160 mg A/P 70 year old woman with PMhx of Afib ON pradaxa, Hypertension (x 10 years) who presented with cough and chills and admitted for Fever/URI r/o Flu and found to have BUN/Cr of 22/1.4. #VLAD vs. CKD Renal function essentially stable, slight up trend in Cr to 1.7 no diarrhea or nephrotoxin exposure during this admission will hold HCTZ for now (gout and up trending Cr) Continue Valsartan Will need outpatient follow up for kidney function #Acute Gout Added uric acid levels to am labs Start prednisone 30mg Daily for 3 days avoid nsaids #URI/r/o Flu/Leukocytosis Continue Tamiflu Ct chest showed left lower lobe consolidation on Levaquin #Hypertension D/c HCTZ Contniue Valsartan #Afib continue Pradaxa rate control as per cardiology Thank you Loyd Jeronimo DO
--- NOTE | 2016-05-08 11:06 | PN ---
Progress Note (short form) - Note Progress Note: PULMONARY OOB TO CHAIR DRY COUGH LEFT GREAT TOE FLARE VSS/AFEBRILE ANICTERIC LEFT BASE CRACKLES S1S2 BS+ OBESE SOFT B/L ANKLE EDEMA L>R LEFT GREAT TOE TENDERNESS LABS/MEDS/NOTES/IMAGING/MICRO REVIEWED LLL CONSOLIDATIVE PROCESS W AIR-BRONCHOGRAMS C/W PNEUMONIA LIKELY ACUTE GOUTY FLARE MED HX LISTED ABS/O2/BD TX/ SHORT COURSE MEDROL FOR GOUT WILL FOLLOW THANK YOU Jermaine FERNANDEZ MD
[2016-05-08 11:17] LABS: URIC ACID 8.6 mg/dL (2.6-7.2)
--- NOTE | 2016-05-08 13:07 | PN ---
Progress Note, Physician History of Present Illness: C/O great toe pain secondary to acute flare of gouty arthritis Less cough Denies dyspnea/ chest pain No c/o fever/ chills - Current Medication List Current Medications: Active Medications Albuterol Sulfate (Ventolin 0.083% Nebulizer Soln -) 1 amp NEB Q4H PRN PRN Reason: SHORT OF BREATH/WHEEZING Albuterol/Ipratropium (Duoneb -) 1 amp NEB TID [facility] Last Admin: 05/08/16 07:25 Dose: Not Given Albuterol/Ipratropium (Duoneb -) 1 amp NEB QIDR [facility] Last Admin: 05/08/16 11:05 Dose: 1 amp Amlodipine Besylate (Norvasc -) 5 mg PO DAILY [facility] Last Admin: 05/08/16 10:00 Dose: 5 mg Dabigatran (Pradaxa -) 150 mg PO BID [facility] Last Admin: 05/08/16 10:00 Dose: 150 mg Guaifenesin/Codeine Phosphate (Robitussin Ac -) 10 ml PO Q8H PRN PRN Reason: COUGH Last Admin: 05/06/16 16:32 Dose: 10 ml Levofloxacin (Levaquin 750 Mg Premixed Ivpb -) 150 mls @ 100 mls/hr IVPB DAILY [facility] Last Admin: 05/08/16 10:01 Dose: 100 mls/hr Metoprolol Succinate (Toprol Xl -) 50 mg PO DAILY [facility] Last Admin: 05/08/16 10:00 Dose: 50 mg Non-Formulary Medication (Pravastatin Sodium [Pravastatin Sodium]) 10 mg PO HS [facility] Last Admin: 05/07/16 21:28 Dose: Not Given Oseltamivir Phosphate (Tamiflu -) 75 mg PO BID [facility] Stop: 05/10/16 10:29 Last Admin: 05/08/16 10:00 Dose: 75 mg Valsartan (Diovan -) 160 mg PO DAILY [facility] Last Admin: 05/08/16 10:00 Dose: 160 mg - Objective Vital Signs: Vital Signs Temperature 98.7 F 05/08/16 09:00 Pulse Rate 60 05/08/16 11:02 Respiratory Rate 16 05/08/16 09:00 Blood Pressure 130/71 05/08/16 09:00 O2 Sat by Pulse Oximetry (%) 94 L 05/08/16 11:02 Constitutional: Yes: No Distress Eyes: Yes: Conjunctiva Clear Cardiovascular: Yes: Regular Rate and Rhythm, S1, S2 Respiratory: Yes: CTA Bilaterally Gastrointestinal: Yes: Normal Bowel Sounds, Soft. No: Tenderness Extremities: Yes: Other (+ swelling, tenderness 1st MTH) Edema: Yes Labs: CBC, BMP 05/08/16 06:50 05/08/16 06:50 Assessment/Plan LLL pneumonia -improved Possible viral syndrome-improved Fever/ leukocytosis improved Acute flare , gouty arthritis Continue empiric levaquin. May substitute po to complete 7-10d course. Complete 5d course of Tamiflu
[2016-05-08] MEDS ORDERED: COLCHICINE 0.6 MG TABLET (FP) PO ONE ×2 (13:11→15:00)
[2016-05-08] MEDS: LEVOFLOXACIN 500 MG TABLET (FP) PO SCH (18:53)
[2016-05-08] MEDS: BENZOCAINE/MENTH/CETYLPYRD CL 1 EACH LOZENGE MM PRN (18:53)
[2016-05-08] MEDS: PATIENT'S OWN MEDICATION (NON-FORMULARY) (Pravastatin Sodium [Pravastatin Sodium] 10 MG) PO SCH ×2 (22:31→22:34)
[2016-05-09] MEDS: ALBUTEROL SO4 2.5/IPRATROPIUM 0.5 INH SOL 3 ML VIAL.NEB. NEB SCH ×5 (00:08→23:06)
[2016-05-09] MEDS: BENZOCAINE/MENTH/CETYLPYRD CL 1 EACH LOZENGE MM PRN (01:00)
[2016-05-09] MEDS: LEVOFLOXACIN 500 MG TABLET (FP) PO SCH (06:22)
[2016-05-09 09:23] LABS: CREATININE 1.5 mg/dL (0.55-1.02)
[2016-05-09] MEDS ORDERED: PT OWN MED DRAWER 7, Y5N ONE (09:56)
[2016-05-09] MEDS: OSELTAMIVIR PHOSPHATE 75 MG CAPSULE PO SCH ×2 (09:59→21:25)
[2016-05-09] MEDS: amLODIPine BESYLATE 5 MG TABLET (FP) PO SCH (09:59)
[2016-05-09] MEDS: METOPROLOL SUCCINATE 25 MG TAB.SR.24H (FP) PO SCH (09:59)
[2016-05-09] MEDS: VALSARTAN 160 MG TABLET (UD) PO SCH (09:59)
[2016-05-09] MEDS: DABIGATRAN ETEXILATE MESYLATE 150 MG CAPSULE PO SCH ×2 (09:59→21:24)
--- NOTE | 2016-05-09 10:56 | PN ---
Progress Note (short form) - Note Progress Note: PULMONARY OOB TO CHAIR DRY COUGH LEFT GREAT TOE FLARE GOUT IMPROVED VSS/AFEBRILE ANICTERIC DISTANT BUT CLEAR S1S2 BS+ OBESE SOFT B/L ANKLE EDEMA L>R LABS/MEDS/NOTES/IMAGING/MICRO REVIEWED LLL CONSOLIDATIVE PROCESS W AIR-BRONCHOGRAMS C/W PNEUMONIA LIKELY ACUTE GOUTY FLARE RESOLVING MED HX LISTED ORAL ABS/O2/BD TX/ PLEASE CALL PRN THANK YOU Jermaine FERNANDEZ MD
[2016-05-09 11:17] LABS: BASOPHIL 0.6 % (0-2.0); EOSINOPHIL 1.3 % (0-4.5); MCH 31.2 pg (25.7-33.7); MCHC 32.6 g/dl (32.0-36.0); MEAN CELL VOLUME 95.9 fl (80-96); NEUTROPHILS 76.9 % (42.8-82.8); PLATELET COUNT 335 K/MM3 (134-434); RDW 13.2 % (11.6-15.6); WHITE BLOOD COUNT 11.6 K/mm3 (4.0-10.0)
--- NOTE | 2016-05-09 12:17 | PN ---
Progress Note (short form) - Note Progress Note: Renal Follow up for VLAD/CKD Pt seen and examined at the bedside no acute complaints toe pain improved Vital Signs Temperature 98.6 F 05/09/16 09:52 Pulse Rate 104 H 05/09/16 09:52 Respiratory Rate 20 05/09/16 09:52 Blood Pressure 132/72 05/09/16 09:52 O2 Sat by Pulse Oximetry (%) 94 L 05/08/16 21:00 Intake & Output 05/06/16 05/07/16 05/08/16 05/09/16 23:59 23:59 23:59 23:59 Intake Total 772 481 1882 Balance 997 194 4952 Gen: NAD CVS: irregular, NO M/R Lungs: CTA, no rales or wheeze Abd: soft NT/ND Ext: Trace to 1+ edema in the LE, no clubbing or cyanosis CBC, BMP 05/09/16 11:14 05/09/16 06:30 Current Medications Albuterol Sulfate (Ventolin 0.083% Nebulizer Soln -) 1 amp NEB Q4H PRN PRN Reason: SHORT OF BREATH/WHEEZING Albuterol/Ipratropium (Duoneb -) 1 amp NEB QIDR [facility] Last Admin: 05/09/16 11:48 Dose: 1 amp Amlodipine Besylate (Norvasc -) 5 mg PO DAILY [facility] Last Admin: 05/09/16 09:59 Dose: 5 mg Benzocaine/Menthol (Cepacol Lozenge -) 1 each MM Q8H PRN PRN Reason: SORE THROAT Last Admin: 05/09/16 01:00 Dose: 1 each Dabigatran (Pradaxa -) 150 mg PO BID [facility] Last Admin: 05/09/16 09:59 Dose: 150 mg Levofloxacin (Levaquin -) 500 mg PO DAILY@0600 [facility] Last Admin: 05/09/16 06:22 Dose: 500 mg Metoprolol Succinate (Toprol Xl -) 50 mg PO DAILY [facility] Last Admin: 05/09/16 09:59 Dose: 50 mg Non-Formulary Medication (Pravastatin Sodium [Pravastatin Sodium]) 10 mg PO HS [facility] Last Admin: 05/08/16 22:34 Dose: Not Given Oseltamivir Phosphate (Tamiflu -) 75 mg PO BID [facility] Stop: 02/10/17 10:29 Last Admin: 05/09/16 09:59 Dose: 75 mg Valsartan (Diovan -) 160 mg PO DAILY [facility] Last Admin: 05/09/16 09:59 Dose: 160 mg A/P 70 year old woman with PMhx of Afib ON pradaxa, Hypertension (x 10 years) who presented with cough and chills and admitted for Fever/URI r/o Flu and found to have BUN/Cr of 22/1.4. #VLAD vs. CKD Renal function stable no diarrhea or nephrotoxin exposure during this admission will hold HCTZ for now Continue ARB Trend BUN/Cr outpatient renal follow up #Acute Gout Added uric acid levels to am labs prednisone 30mg Daily for 2 days avoid nsaids #URI/r/o Flu/Leukocytosis Continue Tamiflu Ct chest showed left lower lobe consolidation on Levaquin #Hypertension D/c HCTZ Contniue Valsartan #Afib continue Pradaxa rate control as per cardiology Thank you Loyd Jeronimo DO
[2016-05-09] MEDS: predniSONE 10 MG TABLET (UD) PO SCH (13:50)
--- NOTE | 2016-05-09 14:41 | PN ---
Progress Note, Physician History of Present Illness: C/O COUGH AND PAIN WHEN COUGHING--BETTER TODAY Toe pain--better today - Current Medication List Current Medications: Active Medications Albuterol Sulfate (Ventolin 0.083% Nebulizer Soln -) 1 amp NEB Q4H PRN PRN Reason: SHORT OF BREATH/WHEEZING Albuterol/Ipratropium (Duoneb -) 1 amp NEB QIDR [facility] Last Admin: 05/09/16 11:48 Dose: 1 amp Amlodipine Besylate (Norvasc -) 5 mg PO DAILY [facility] Last Admin: 05/09/16 09:59 Dose: 5 mg Benzocaine/Menthol (Cepacol Lozenge -) 1 each MM Q8H PRN PRN Reason: SORE THROAT Last Admin: 05/09/16 01:00 Dose: 1 each Dabigatran (Pradaxa -) 150 mg PO BID [facility] Last Admin: 05/09/16 09:59 Dose: 150 mg Levofloxacin (Levaquin -) 500 mg PO DAILY@0600 [facility] Last Admin: 05/09/16 06:22 Dose: 500 mg Metoprolol Succinate (Toprol Xl -) 50 mg PO DAILY [facility] Last Admin: 05/09/16 09:59 Dose: 50 mg Non-Formulary Medication (Pravastatin Sodium [Pravastatin Sodium]) 10 mg PO HS [facility] Last Admin: 05/08/16 22:34 Dose: Not Given Oseltamivir Phosphate (Tamiflu -) 75 mg PO BID [facility] Stop: 05/10/16 10:29 Last Admin: 05/09/16 09:59 Dose: 75 mg Prednisone (Deltasone -) 30 mg PO DAILY [facility] Stop: 05/10/16 10:01 Last Admin: 05/09/16 13:50 Dose: 30 mg Valsartan (Diovan -) 160 mg PO DAILY [facility] Last Admin: 05/09/16 09:59 Dose: 160 mg - Objective Vital Signs: Vital Signs Temperature 98.6 F 05/09/16 09:52 Pulse Rate 104 H 05/09/16 09:52 Respiratory Rate 20 05/09/16 09:52 Blood Pressure 132/72 05/09/16 09:52 O2 Sat by Pulse Oximetry (%) 96 05/09/16 09:00 Cardiovascular: Yes: S1, S2 Respiratory: Yes: Regular, Diminished, Rales (at the bases) Gastrointestinal: Yes: Normal Bowel Sounds, Soft Labs: CBC, BMP 05/09/16 11:14 05/09/16 06:30 Problem List - Problems (1) Cough Assessment/Plan: elevated WBC viral/pna levaquin nd tamilflu droplet precaution nebs iv steroids ct of chest Code(s): R05 - COUGH (2) HTN (hypertension) Assessment/Plan: Vital Signs Period Temp Pulse Resp BP Sys/Quevedo Pulse Ox Last 24 Hr 98.4 F-98.8 F 78-103 18-20 119-152/54-94 92-94 Code(s): I10 - ESSENTIAL (PRIMARY) HYPERTENSION (3) Pneumonia Assessment/Plan: LLL ABX NEBS Code(s): J18.9 - PNEUMONIA, UNSPECIFIED ORGANISM (4) Renal insufficiency Assessment/Plan: renal on case Code(s): N28.9 - DISORDER OF KIDNEY AND URETER, UNSPECIFIED (5) Atrial fibrillation Assessment/Plan: Orders 05/05/16 10:00 Dabigatran Etexilate Mesylate [Pradaxa -] 150 mg PO BID Code(s): I48.91 - UNSPECIFIED ATRIAL FIBRILLATION (6) Gout attack Assessment/Plan: on prednisone WILL TAPER OFF PREDNISONE AND MAINTAIN ON COLCHICINE THEN START ULT Code(s): M10.9 - GOUT, UNSPECIFIED
[2016-05-09] MEDS: PATIENT'S OWN MEDICATION (NON-FORMULARY) (Pravastatin Sodium [Pravastatin Sodium] 10 MG) PO SCH (21:25)
[2016-05-10] MEDS: LEVOFLOXACIN 500 MG TABLET (FP) PO SCH (06:20)
[2016-05-10] MEDS: ALBUTEROL SO4 2.5/IPRATROPIUM 0.5 INH SOL 3 ML VIAL.NEB. NEB SCH (07:05)
--- NOTE | 2016-05-10 08:41 | DS ---
Physical Examination Vital Signs: Vital Signs Temperature 97.6 F 05/10/16 06:37 Pulse Rate 70 05/10/16 06:37 Respiratory Rate 20 05/10/16 06:37 Blood Pressure 148/86 05/10/16 06:37 O2 Sat by Pulse Oximetry (%) 96 05/09/16 21:00 Cardiovascular: Yes: S1, S2 Respiratory: Yes: Rhonchi Gastrointestinal: Yes: Normal Bowel Sounds, Soft Labs: CBC, BMP 05/09/16 11:14 05/09/16 06:30 Discharge Summary Reason For Visit: UPPER RESPIRATORY INFECTION, RENAL INSUFFICIENCY Current Active Problems Cough (Acute) Gout attack (Acute) HTN (hypertension) (Acute) Pneumonia (Acute) Renal insufficiency (Acute) Upper respiratory infection (Acute) Hospital Course: - Problems (1) Cough Assessment/Plan: elevated WBC viral/pna levaquin nd tamilflu droplet precaution nebs iv steroids ct of chest Code(s): R05 - COUGH (2) HTN (hypertension) Assessment/Plan: Vital Signs Period Temp Pulse Resp BP Sys/Quevedo Pulse Ox Last 24 Hr 98.4 F-98.8 F 78-103 18-20 119-152/54-94 92-94 Code(s): I10 - ESSENTIAL (PRIMARY) HYPERTENSION (3) Pneumonia Assessment/Plan: LLL ABX NEBS Code(s): J18.9 - PNEUMONIA, UNSPECIFIED ORGANISM (4) Renal insufficiency Assessment/Plan: renal on case Code(s): N28.9 - DISORDER OF KIDNEY AND URETER, UNSPECIFIED (5) Atrial fibrillation Assessment/Plan: Orders 05/05/16 10:00 Dabigatran Etexilate Mesylate [Pradaxa -] 150 mg PO BID Code(s): I48.91 - UNSPECIFIED ATRIAL FIBRILLATION (6) Gout attack Assessment/Plan: on prednisone WILL TAPER OFF PREDNISONE AND MAINTAIN ON COLCHICINE THEN START ULT Code(s): M10.9 - GOUT, UNSPECIFIED Condition: Improved - Instructions Diet, Activity, Other Instructions: Activity as tolerated Low salt diet Report any increased pain or temp 101 or over to . Referrals: Delio Cruz MD [Primary Care Provider] - Disposition: HOME - Home Medications Comprehensive Discharge Medication List: Ambulatory Orders Metoprolol Succinate [Toprol XL -] 50 mg PO DAILY 05/21/11 Olmesartan/Amlodipin/Hcthiazid [Tribenzor 40-5-25 mg Tablet] 1 each PO DAILY Dabigatran Etexilate Mesylate [Pradaxa -] 150 mg PO BID 05/04/16 Colchicine [Colcrys -] 0.6 mg PO DAILY #30 tablet 05/10/16 Levofloxacin [Levaquin -] 500 mg PO DAILY@0600 #5 tablet 05/10/16 Pravastatin Sodium 10 mg PO DAILY #30 tablet 05/10/16 Prednisone [Deltasone -] 30 mg PO DAILY #9 tablet 05/10/16
[2016-05-10 08:51] LABS: BASOPHIL 0.4 % (0-2.0); MCH 31.3 pg (25.7-33.7); MCHC 32.6 g/dl (32.0-36.0); MEAN PLT VOLUME 9.7 fl (7.5-11.1); NEUTROPHILS 89.6 % (42.8-82.8); PLATELET COUNT 358 K/MM3 (134-434); RDW 13.3 % (11.6-15.6); WHITE BLOOD COUNT 13.4 K/mm3 (4.0-10.0)
[2016-05-10 09:21] LABS: CALCIUM 9.3 mg/dL (8.5-10.1); MAGNESIUM 2.2 mg/dL (1.8-2.4)
[2016-05-10 09:24] LABS: CREATININE 1.5 mg/dL (0.55-1.02)
[2016-05-10] MEDS: predniSONE 10 MG TABLET (UD) PO SCH (09:31)
[2016-05-10] MEDS: METOPROLOL SUCCINATE 25 MG TAB.SR.24H (FP) PO SCH (09:32)
[2016-05-10] MEDS: OSELTAMIVIR PHOSPHATE 75 MG CAPSULE PO SCH (09:32)
[2016-05-10] MEDS: VALSARTAN 160 MG TABLET (UD) PO SCH (09:32)
[2016-05-10] MEDS: DABIGATRAN ETEXILATE MESYLATE 150 MG CAPSULE PO SCH (09:32)
[2016-05-10] MEDS: amLODIPine BESYLATE 5 MG TABLET (FP) PO SCH (09:32)
[2016-05-10 11:09] VITALS: BP 127/86; PULSE 74; TEMP 98.6
--- NOTE | 2016-05-10 12:03 | PN ---
Progress Note (short form) - Note Progress Note: Renal Follow up for VLAD/CKD Pt seen and examined at the bedside no complaints for discharge home today Vital Signs Temperature 98.6 F 05/10/16 10:00 Pulse Rate 74 05/10/16 10:00 Respiratory Rate 20 05/10/16 10:00 Blood Pressure 127/86 05/10/16 10:00 O2 Sat by Pulse Oximetry (%) 96 05/10/16 09:00 Intake & Output 05/07/16 05/08/16 05/09/16 05/10/16 23:59 23:59 23:59 23:59 Intake Total 900 1500 1150 400 Balance 900 1500 1150 400 Gen: NAD CVS: irregular, NO M/R Lungs: CTA, no rales or wheeze Abd: soft NT/ND Ext: Trace to 1+ edema in the LE, no clubbing or cyanosis CBC, BMP 05/10/16 07:00 05/10/16 07:00 Current Medications Albuterol Sulfate (Ventolin 0.083% Nebulizer Soln -) 1 amp NEB Q4H PRN PRN Reason: SHORT OF BREATH/WHEEZING Albuterol/Ipratropium (Duoneb -) 1 amp NEB QIDR [facility] Last Admin: 05/10/16 07:05 Dose: Not Given Amlodipine Besylate (Norvasc -) 5 mg PO DAILY [facility] Last Admin: 05/10/16 09:32 Dose: 5 mg Benzocaine/Menthol (Cepacol Lozenge -) 1 each MM Q8H PRN PRN Reason: SORE THROAT Last Admin: 05/09/16 01:00 Dose: 1 each Dabigatran (Pradaxa -) 150 mg PO BID [facility] Last Admin: 05/10/16 09:32 Dose: 150 mg Levofloxacin (Levaquin -) 500 mg PO DAILY@0600 [facility] Last Admin: 05/10/16 06:20 Dose: 500 mg Metoprolol Succinate (Toprol Xl -) 50 mg PO DAILY [facility] Last Admin: 05/10/16 09:32 Dose: 50 mg Non-Formulary Medication (Pravastatin Sodium [Pravastatin Sodium]) 10 mg PO HS [facility] Last Admin: 05/09/16 21:25 Dose: Not Given Valsartan (Diovan -) 160 mg PO DAILY [facility] Last Admin: 05/10/16 09:32 Dose: 160 mg A/P 70 year old woman with PMhx of Afib ON pradaxa, Hypertension (x 10 years) who presented with cough and chills and admitted for Fever/URI r/o Flu and found to have BUN/Cr of 22/1.4. #VLAD vs. CKD Renal function stable continue ARB/HCTZ to follow up in the office for CKD management #Acute Gout Prednisone/Colchcine avoid nsaids may need allopurinol, to start once acute flare resolved #URI/r/o Flu/Leukocytosis s/p Tamiflu Continue Levaquin as per primary #Hypertension Continue Valsartan/HCTZ #Afib continue Pradaxa rate control as per cardiology Thank you Loyd Jeronimo DO
== END 2016-05-10 12:42 | disposition home or self-care (01) | DRG 682 ==
LOC: JER 20:06 → JERBED 05-05 02:10 → J5W 05-05 03:51 → J8W 05-05 06:46
PROVIDERS: ADMIT Family Medicine; ATTEND Family Medicine
DX: N17.9 Acute kidney failure, unspecified (principal); J18.9 Pneumonia, unspecified organism; I48.0 Paroxysmal atrial fibrillation; I25.10 Atherosclerotic heart disease of native coronary artery without angina pectoris; E78.5 Hyperlipidemia, unspecified; M10.9 Gout, unspecified; J06.9 Acute upper respiratory infection, unspecified; I12.9 Hypertensive chronic kidney disease with stage 1 through stage 4 chronic kidney disease, or unspecified chronic kidney disease; N18.9 Chronic kidney disease, unspecified; B34.9 Viral infection, unspecified
CPT/HCPCS: 36415; 71020-TC; 71250-TC; 76775-TC; 80048; 80053; 81003; 82550; 82553; 82570; 83735; 83880; 84100; 84156; 84300; 84484; 84550; 85025; 85651; 87040; 87070; 87086; 87205; 87254; 87430; 87804; 87899; 90670; 93005; 93010; 93306-TC; 94640; 99283-25; G0008; Q2037

== ENCOUNTER 2017-01-11 10:54 | Emergency (ER) | payer OTHER ==
[2017-01-11 11:04] VITALS: BP 138/72; PULSE 58; TEMP 98.2; BMI 40.7
--- NOTE | 2017-01-11 11:52 | PDOC ---
History of Present Illness - General Chief Complaint: Pain Stated Complaint: PAIN Time Seen by Provider: 01/11/17 11:26 History Source: Patient Exam Limitations: No Limitations - History of Present Illness Initial Comments: 01/11/17 11:37 71 yr female with c/o pain for 5 days to left ribs tender to touch. Pt states she lifted/dragged a heavy bag on and she has continued pain to the left side with movement Past History - Past Medical History Allergies/Adverse Reactions: Allergies Allergy/AdvReac Type Severity Reaction Status Date / Time No Known Allergies Allergy Verified 01/11/17 11:34 Home Medications: Ambulatory Orders Metoprolol Succinate [Toprol XL -] 50 mg PO DAILY 05/21/11 Olmesartan/Amlodipin/Hcthiazid [Tribenzor 40-5-25 mg Tablet] 1 each PO DAILY Dabigatran Etexilate Mesylate [Pradaxa -] 150 mg PO BID 05/04/16 Pravastatin Sodium 10 mg PO DAILY #30 tablet 05/10/16 Cyclobenzaprine HCl [Flexeril -] 5 mg PO TID #12 tablet 01/11/17 Febuxostat [Uloric -] 80 mg PO DAILY 01/11/17 HTN: Yes Thyroid Disease: Yes (found nodules bilaterally) - Immunization History Immunization Up to Date: Yes (no flu vaccine) - Suicide/Smoking/Psychosocial Hx Smoking Status: No Smoking History: Never smoked Have you smoked in the past 12 months: No Number of Cigarettes Smoked Daily: 0 Information on smoking cessation initiated: No Hx Alcohol Use: No Drug/Substance Use Hx: No Substance Use Type: None Hx Substance Use Treatment: No *Physical Exam - Vital Signs Last Vital Signs Temp Pulse Resp BP Pulse Ox 98.2 F 58 L 18 138/72 100 01/11/17 11:02 01/11/17 11:02 01/11/17 11:02 01/11/17 11:02 01/11/17 11:02 - Physical Exam General Appearance: Yes: Nourished, Appropriately Dressed HEENT: positive: EOMI, ROBBIE Neck: positive: Supple Respiratory/Chest: positive: Lungs Clear, Normal Breath Sounds Cardiovascular: positive: Regular Rhythm, Regular Rate Gastrointestinal/Abdominal: positive: Normal Bowel Sounds, Soft Musculoskeletal: positive: Normal Inspection Extremity: positive: Normal Capillary Refill, Normal Inspection, Normal Range of Motion Integumentary: positive: Normal Color, Dry, Warm Neurologic: positive: Fully Oriented, Alert, Normal Mood/Affect, Normal Response , Motor Strength 08/02 ED Treatment Course - RADIOLOGY Radiology Studies Ordered: Category Date Time Status CHEST PA & LAT [RAD] Stat Radiology 01/11/17 11:36 Ordered RIBS-LEFT SIDE [RAD] Stat Radiology 01/11/17 11:36 Ordered Medical Decision Making - Medical Decision Making 01/11/17 12:05 cc: muscle strain after pulling a heavy bag 6 days ago. pt denies abd pain no fever no SOB , no urine or bowel complaints no chest pain or leg pain TTP left ribs , no crepitus speaking clearly will give tylenol (pt on pradaxa) will prescribe muscle relaxants strict follow up with the her doctor. *DC/Admit/Observation/Transfer Diagnosis at time of Disposition: Muscle strain - Discharge Dispostion Disposition: HOME Condition at time of disposition: Good - Prescriptions Prescriptions: Cyclobenzaprine HCl [Flexeril -] 5 mg PO TID #12 tablet - Referrals Referrals: Delio Cruz MD [Primary Care Provider] - - Patient Instructions Additional Instructions: follow with your doctor on Friday for follow up take the muscle relaxants as prescribed take tylenol 650mg every 4-6hrs for pain return if any worsening symptoms
[2017-01-11] MEDS ORDERED: ACETAMINOPHEN 325 MG TABLET (FP) PO ONE (11:53)
[2017-01-11] MEDS ORDERED: ACETAMINOPHEN 325 MG TABLET (FP) ONE (11:58)
== END 2017-01-11 12:54 | disposition home or self-care (01) ==
LOC: JERFT 10:54
DX: S29.011A Strain of muscle and tendon of front wall of thorax, initial encounter (principal); X50.0XXA Overexertion from strenuous movement or load, initial encounter; X50.9XXA Other and unspecified overexertion or strenuous movements or postures, initial encounter; Y93.89 Activity, other specified; Y92.89 Other specified places as the place of occurrence of the external cause; Y99.8 Other external cause status
CPT/HCPCS: 71020-TC; 71101-TC; 99281-25

== ENCOUNTER 2017-01-12 12:13 | Emergency (ER) | payer OTHER ==
--- NOTE | 2017-01-12 12:24 | PDOC ---
History of Present Illness - General History Source: Patient Exam Limitations: No Limitations - History of Present Illness Initial Comments: 01/12/17 12:49 The patient is a 71 year old female with a significant past medical history of Afib ON pradaxa, Hypertension (x 10 years), obesity, who presents to the ED with worsening left sided flank for 6 days. Patient states she she was seen here yesterday and discharged on muscle relaxer. Patient states the pain was better last night but aggravated this morning. Patient denies any dysuria, frequency, hematuria. Patient denies fever, chills, nausea, vomiting, diarrhea. <Andre Mann - Last Filed: 01/12/17 17:46> <Abdiaziz Bhakta - Last Filed: 01/12/17 18:09> - General Chief Complaint: Pain, Acute Stated Complaint: PAIN, REVISIT Time Seen by Provider: 01/12/17 12:23 Past History <Andre Mann - Last Filed: 01/12/17 17:46> - Past Medical History HTN: Yes Thyroid Disease: Yes (found nodules bilaterally) - Immunization History Immunization Up to Date: Yes (no flu vaccine) - Suicide/Smoking/Psychosocial Hx Smoking Status: No Smoking History: Never smoked Have you smoked in the past 12 months: No Number of Cigarettes Smoked Daily: 0 Hx Alcohol Use: No Drug/Substance Use Hx: No Substance Use Type: None Hx Substance Use Treatment: No <Abdiaziz Bhakta - Last Filed: 01/12/17 18:09> - Past Medical History Allergies/Adverse Reactions: Allergies Allergy/AdvReac Type Severity Reaction Status Date / Time No Known Allergies Allergy Verified 01/12/17 12:46 Home Medications: Ambulatory Orders Metoprolol Succinate [Toprol XL -] 50 mg PO DAILY 05/21/11 Olmesartan/Amlodipin/Hcthiazid [Tribenzor 40-5-25 mg Tablet] 1 each PO DAILY Dabigatran Etexilate Mesylate [Pradaxa -] 150 mg PO DAILY 05/04/16 Pravastatin Sodium 10 mg PO DAILY #30 tablet 05/10/16 Cyclobenzaprine HCl [Flexeril -] 5 mg PO TID #12 tablet 01/11/17 Febuxostat [Uloric -] 80 mg PO DAILY 10/14/17 Oxycodone HCl/Acetaminophen [Percocet 5-325 mg Tablet] 1 - 2 tab PO Q6H #20 tab MDD 6 01/12/17 Review of Systems - Review of Systems Comments:: 01/12/17 12:49 GENERAL/CONSTITUTIONAL: No fever or chills. No weakness. HEAD, EYES, EARS, NOSE AND THROAT: No change in vision. No ear pain or discharge. No sore throat. CARDIOVASCULAR: No chest pain or shortness of breath. RESPIRATORY: No cough, wheezing, or hemoptysis. GASTROINTESTINAL: No nausea, vomiting, diarrhea or constipation. GENITOURINARY: No dysuria, frequency, or change in urination. MUSCULOSKELETAL: + left sided flank pain. No joint or muscle swelling or pain. No neck pain. SKIN: No rash NEUROLOGIC: No headache, vertigo, loss of consciousness, or change in strength/ sensation. ENDOCRINE: No increased thirst. No abnormal weight change. HEMATOLOGIC/LYMPHATIC: No anemia, easy bleeding, or history of blood clots. ALLERGIC/IMMUNOLOGIC: No hives or skin allergy. <Andre Mann - Last Filed: 01/12/17 17:46> *Physical Exam - Vital Signs Last Vital Signs Temp Pulse Resp BP Pulse Ox 97.8 F 59 L 18 149/90 100 01/12/17 12:20 01/12/17 12:20 01/12/17 12:20 01/12/17 12:20 01/12/17 12:20 - Physical Exam Comments: 01/12/17 12:50 GENERAL: Awake, alert, and fully oriented, in no acute distress HEAD: No signs of trauma EYES: PERRLA, EOMI, sclera anicteric, conjunctiva clear ENT: Auricles normal inspection, hearing grossly normal, nares patent, oropharynx clear without exudates. Moist mucosa NECK: Normal ROM, supple, no lymphadenopathy, JVD, or masses LUNGS: Breath sounds equal, clear to auscultation bilaterally. No wheezes, and no crackles HEART: Regular rate and rhythm, normal S1 and S2, no murmurs, rubs or gallops BACK/ FLANK: Tender in the paraspinal on the left and left lower quadrant on the front. Negative straight leg raising. No other signs of sciatica. ABDOMEN: Soft, nontender, normoactive bowel sounds. No guarding, no rebound. No masses EXTREMITIES: Normal range of motion, no edema. No clubbing or cyanosis. No cords, erythema, or tenderness NEUROLOGICAL: Cranial nerves II through XII grossly intact. Normal speech, normal gait SKIN: Warm, Dry, normal turgor, no rashes or lesions noted. <Andre Mann - Last Filed: 01/12/17 17:46> ED Treatment Course - LABORATORY CBC & Chemistry Diagram: 01/12/17 13:18 01/12/17 13:18 - RADIOLOGY Radiology Studies Ordered: 01/12/17 17:46 EXAM: CT lumbar spine without contrast HISTORY:Left-sided pain COMPARISON: None. FINDINGS: 1. There is spondylitic change of the lumbar spine with the appearance of multiple level moderate to marked canal and foraminal stenosis. Visualization of detail of the contents of the lumbar canal is somewhat limited by artifact created by large habitus. 2. No evidence of fracture or subluxation. 3. The left kidney appears to be atrophic relative to the right kidney. <Andre Mann - Last Filed: 01/12/17 17:46> - LABORATORY CBC & Chemistry Diagram: 01/12/17 13:18 01/12/17 13:18 <Abdiaziz Bhakta - Last Filed: 01/12/17 18:09> *DC/Admit/Observation/Transfer - Attestations Scribe Attestion: 01/12/17 12:52 Documentation prepared by Andre Mann, acting as medical support assistant for Abdiaziz Bhakta MD. <Andre Mann - Last Filed: 01/12/17 17:46> - Discharge Dispostion Admit: No - Attestations Physician Attestion: 01/12/17 12:24 I, Dr. Abdiaziz Bhakta, attest that this document has been prepared under my direction and personally reviewed by me in its entirety. I further attest, that it accurately reflects all work, treatment, procedures and medical decision -making performed by me. <Abdiaziz Bhakta - Last Filed: 01/12/17 18:09> Diagnosis at time of Disposition: Flank pain, acute Back pain Qualifiers: Back pain location: low back pain Chronicity: acute Back pain laterality: left Sciatica presence: without sciatica Qualified Code(s): M54.5 - Low back pain - Discharge Dispostion Disposition: HOME Condition at time of disposition: Unchanged/Unknown - Prescriptions Prescriptions: Oxycodone HCl/Acetaminophen [Percocet 5-325 mg Tablet] 1 - 2 tab PO Q6H #20 tab MDD 6 - Referrals Referrals: Tamica Burgos MD [Primary Care Provider] - - Patient Instructions Printed Discharge Instructions: DI for Low Back Pain Additional Instructions: Mrs Yip- Your Blood Work, your urine tests and your CT scans don't show anything significant so this is just back pain. Use the percocet as needed. Follow up with your doctor. Return to us if any problems. Best- Dr. Abdiaziz Bhakta
[2017-01-12 12:46] VITALS: TEMP 97.8; BMI 40.7
[2017-01-12 13:32] LABS: BASOPHIL 0.6 % (0-2.0); MCH 31.2 pg (25.7-33.7); MCHC 32.4 g/dl (32.0-36.0); MEAN CELL VOLUME 96.2 fl (80-96); MEAN PLT VOLUME 9.9 fl (7.5-11.1); PLATELET COUNT 289 K/MM3 (134-434); RDW 13.2 % (11.6-15.6); WHITE BLOOD COUNT 8.8 K/mm3 (4.0-10.0)
[2017-01-12 13:36] LABS: URINE APPEARANCE CLOUDY; URINE BILIRUBIN NEGATIVE (NEGATIVE); URINE BLOOD NEGATIVE (NEGATIVE); URINE COLOR LTYELLOW; URINE GLUCOSE (UA) NEGATIVE (NEGATIVE); URINE KETONE NEGATIVE (NEGATIVE); URINE NITRITE NEGATIVE (NEGATIVE); URINE PROTEIN NEGATIVE (NEGATIVE); URINE UROBILINOGEN NEGATIVE mg/dL (0.2-1.0)
[2017-01-12 14:26] LABS: ALBUMIN 3.7 g/dl (3.4-5.0); ANION GAP 9 (8-16); BILIRUBIN,TOTAL 0.9 mg/dL (0.2-1.0); CALCIUM 9.1 mg/dL (8.5-10.1); CO2 31 mmol/L (21-32); CREATININE 1.3 mg/dL (0.55-1.02); GLUCOSE,RANDOM 90 mg/dL (74-106); SGOT/AST 15 U/L (15-37); SGPT/ALT 16 U/L (12-78); TOT PROT 7.5 g/dl (6.4-8.2)
[2017-01-12 14:27] LABS: ALK PHOS 86 U/L (45-117)
[2017-01-12 16:47] VITALS: BP 124/81; PULSE 57
[2017-01-12 17:24] LABS: URINE LEUK ESTERASE TRACE (NEGATIVE)
== END 2017-01-12 18:35 | disposition home or self-care (01) ==
LOC: JER 12:13
DX: M54.5 Low back pain (principal); I10 Essential (primary) hypertension; I48.91 Unspecified atrial fibrillation; Z79.01 Long term (current) use of anticoagulants
CPT/HCPCS: 36415; 72131-TC; 74176; 80053; 81003; 81015; 85025; 87086; 99283-25

== ENCOUNTER 2017-12-28 17:02 | Emergency (ER) | payer OTHER ==
[2017-12-28 17:21] VITALS: BMI 38.2
--- NOTE | 2017-12-28 17:43 | PDOC ---
History of Present Illness - General Chief Complaint: Lightheaded Stated Complaint: VERTIGO, SOB, DIFFICULTY WALKING Time Seen by Provider: 12/28/17 17:07 - History of Present Illness Initial Comments: 12/28/17 17:39 72 yo F with h/o HTN, A-fib (on Pradaxa), Obesity who p/w dizziness. Patient reports acute onset of palpitations, sob, spinning sensation this morning upon waking up and sitting in bed. Symptoms were aggravated with ambulation, and resolved with rest. All symptoms resided at 1230 AM. However patient has been persistently fatigued since this morning. Patient stated that it felt that she "was going to pass out," this AM. Denies PO symptom control. Endorses nausea without vomiting ( now resolved). Patient denies BRIZUELA, LOC, head/neck/back trauma, N/V, cough, wheezing, PND, Orthopnea, F/C, CP, urinary complaints, hematuria, abdominal pain, diarrhea, constipation, BPR,weakness, sensory changes. PMHx: as noted above. Denies h/o ACS/AZ, stent placement, CABG, PE/DVT. ROS: as noted SHx: Denies tobacco, Etoh, IVDA Allergies: NKDA Past History - Past Medical History Allergies/Adverse Reactions: Allergies Allergy/AdvReac Type Severity Reaction Status Date / Time No Known Allergies Allergy Verified 12/28/17 17:21 Home Medications: Ambulatory Orders Metoprolol Succinate [Toprol XL -] 50 mg PO DAILY 05/21/11 Olmesartan/Amlodipin/Hcthiazid [Tribenzor 40-5-25 mg Tablet] 1 each PO DAILY Dabigatran Etexilate Mesylate [Pradaxa -] 150 mg PO DAILY 05/04/16 Pravastatin Sodium 10 mg PO DAILY #30 tablet 05/10/16 Cyclobenzaprine HCl [Flexeril -] 5 mg PO TID #12 tablet 01/11/17 Febuxostat [Uloric -] 80 mg PO DAILY 01/11/17 Oxycodone HCl/Acetaminophen [Percocet 5-325 mg Tablet] 1 - 2 tab PO Q6H #20 tab MDD 6 01/12/17 Meclizine HCl [Antivert -] 12.5 mg PO TID PRN #21 tablet 12/28/17 COPD: No HTN: Yes Thyroid Disease: Yes (found nodules bilaterally) - Immunization History Immunization Up to Date: Yes (no flu vaccine) - Suicide/Smoking/Psychosocial Hx Smoking Status: No Smoking History: Never smoked Have you smoked in the past 12 months: No Number of Cigarettes Smoked Daily: 0 Hx Alcohol Use: No Drug/Substance Use Hx: No Substance Use Type: None Hx Substance Use Treatment: No Review of Systems - Review of Systems Comments:: 12/28/17 17:41 GENERAL/CONSTITUTIONAL: No fever or chills. No weakness. HEAD, EYES, EARS, NOSE AND THROAT: No change in vision. No ear pain or discharge. No sore throat. CARDIOVASCULAR: No chest pain or shortness of breath RESPIRATORY: No cough, wheezing, or hemoptysis. GASTROINTESTINAL: No nausea, vomiting, diarrhea or constipation. GENITOURINARY: No dysuria, frequency, or change in urination. MUSCULOSKELETAL: No joint or muscle swelling or pain. No neck or back pain. SKIN: No rash NEUROLOGIC: + lightheadedness. No headache, vertigo, loss of consciousness, or change in strength/sensation. ENDOCRINE: No increased thirst. No abnormal weight change HEMATOLOGIC/LYMPHATIC: No anemia, easy bleeding, or history of blood clots. ALLERGIC/IMMUNOLOGIC: No hives or skin allergy. *Physical Exam - Vital Signs Last Vital Signs Temp Pulse Resp BP Pulse Ox 98.8 F 59 L 18 144/78 100 12/28/17 17:18 12/28/17 17:18 12/28/17 17:18 12/28/17 17:18 12/28/17 17:18 - Physical Exam Comments: 12/28/17 17:41 GENERAL: Awake, alert, and fully oriented, in no acute distress HEAD: No signs of trauma, normocephalic, atraumatic EYES: PERRLA, EOMI, sclera anicteric, conjunctiva clear ENT: Auricles normal inspection, hearing grossly normal, nares patent, oropharynx clear without exudates. Moist mucosa NECK: Normal ROM, supple, no lymphadenopathy, JVD, or masses LUNGS: No distress, speaks full sentences, clear to auscultation bilaterally HEART: Irregular rate and rhythm. normal S1 and S2, no murmurs, rubs or gallops , peripheral pulses normal and equal bilaterally. ABDOMEN: Soft, nontender, normoactive bowel sounds. No guarding, no rebound. No masses. Neg CVA ttp. EXTREMITIES : Normal inspection, Normal range of motion, no edema. No clubbing or cyanosis. NEUROLOGICAL: Cranial nerves II through XII grossly intact. Normal speech, no focal sensorimotor deficits. Neg dysmetria on FTN. Nml LOC. SKIN: Warm, Dry, normal turgor, no rashes or lesions noted ED Treatment Course - LABORATORY CBC & Chemistry Diagram: 12/28/17 18:15 12/28/17 18:15 Medical Decision Making - Medical Decision Making 12/28/17 18:09 72 yo F with h/o HTN, A-fib (on Pradaxa), Obesity who p/w dizziness. HR 59, vitals otherwise wnl, AF, A&Ox3. Absent neuro deficits on physical exam. Likely peripheral vs central etiology of vertigo. Symptoms resolved at rest. ACS/AZ r/ o. Will assess for VBI, TIA, hypoglycemia, hypovolemia, cardiac dyssarythmia, electrolyte abnml, metabolic or toxic derangement, acid-base disturbances, infection. ED Course: CBC, CMP, Cardiac Pr. UA, Urine Cx. EKG, CXR CTH 12/28/17 18:46 EKG: Sinus bradycardia with incomplete RBBB, left ant. fasc. block. Absent CLAYTON, STD, pathologic Q waves. Similiar to prior EKG ( 05-04-2016) 12/28/17 19:53 CBC,CMP: Unremarkable UA: Neg INR: 1.18 12/28/17 19:53 CTH: Unremarkable Repeat trop: symptoms resolved. If patient trop neg is safe for d/c with return precautions. Advised to f/u with PMD. 12/28/17 21:12 Repeat trop Neg. *DC/Admit/Observation/Transfer Diagnosis at time of Disposition: Vertigo - Discharge Dispostion Condition at time of disposition: Stable Decision to Admit order: No - Referrals Referrals: Delio Cruz MD [Primary Care Provider] - - Patient Instructions Printed Discharge Instructions: DI for Vertigo Additional Instructions: Please return to the emergency department with any new or worsening symptoms or concerns. Please follow up with your primary care physician within 72 hours. Take Meclizine as needed for dizziness. - Post Discharge Activity - Attestations Physician Attestion: 12/28/17 21:12 I attest to the information provided in this note.
[2017-12-28 18:25] LABS: BASO % 0.6 % (0-2.0); EOS % 1.2 % (0-4.5); HEMATOCRIT 36.9 % (32.4-45.2); HEMOGLOBIN 11.7 GM/dL (10.7-15.3); LYMPH % 15.2 % (8-40); MCHC 31.8 g/dl (32.0-36.0); MEAN CELL VOLUME 94.4 fl (80-96); MEAN PLT VOLUME 10.8 fl (7.5-11.1); MONO % 6.8 % (3.8-10.2); NEUT % 76.2 % (42.8-82.8); PLATELET COUNT 312 K/MM3 (134-434); RBC 3.91 M/mm3 (3.60-5.2); RDW 14.4 % (11.6-15.6); WHITE BLOOD COUNT 9.5 K/mm3 (4.0-10.0)
[2017-12-28 18:38] LABS: INR 1.13 (0.83-1.09); PROTHROMBIN TIME (PATIENT) 13.3 SEC (9.7-13.0)
[2017-12-28 18:50] LABS: ALBUMIN 3.7 g/dl (3.4-5.0); ALK PHOS 82 U/L (45-117); ANION GAP 11 MMOL/L (8-16); BILIRUBIN,TOTAL 0.6 mg/dL (0.2-1); BLOOD UREA NITROGEN 20 mg/dL (7-18); CALCIUM 9.9 mg/dL (8.5-10.1); CHLORIDE 102 mmol/L (98-107); CO2 28 mmol/L (21-32); CREATININE 1.2 mg/dL (0.55-1.3); GLUCOSE,RANDOM 93 mg/dL (74-106); POTASSIUM 3.8 mmol/L (3.5-5.1); SGOT/AST 13 U/L (15-37); SGPT/ALT 13 U/L (13-61); SODIUM 142 mmol/L (136-145); TOT PROT 7.6 g/dl (6.4-8.2)
[2017-12-28 19:28] LABS: URINE APPEARANCE SLCLOUDY; URINE BILIRUBIN NEGATIVE (<2.0 mg/dL); URINE COLOR DKYELLOW; URINE GLUCOSE (UA) NEGATIVE (NEGATIVE); URINE KETONE NEGATIVE (NEGATIVE); URINE LEUK ESTERASE NEGATIVE (NEGATIVE); URINE NITRITE NEGATIVE (NEGATIVE); URINE PROTEIN NEGATIVE (NEGATIVE); URINE UROBILINOGEN NEGATIVE mg/dL (0.2-1.0)
--- NOTE | 2017-12-28 19:50 | PDOC ---
Attending Attestation - HPI HPI: 12/28/17 20:15 The patient is a 72 year old female with a significant past medical history of HTN, A-fib (on Pradaxa), Obesity, Vertigo, who presents to the ED with complaint of dizziness, palpitations, shortness of breath, room spinning sensation this morning upon waking up today. She states her symptoms are exacerbated with ambulation and resolves with rest. All symptoms resided at 1230 AM. However patient has been persistently fatigued since this morning. Secondarily, she also reports mild nausea, but denies vomiting. The patient denies chest pain, headache.The patient denies fever, chills, vomit , diarrhea and constipation. The patient denies dysuria, frequency, urgency and hematuria. Social Hx: Denies tobacco, Etoh, IVDA Allergies: NKDA PCP: Dr. Cruz - Physicial Exam PE: 12/28/17 20:16 GENERAL: Well-appearing, well-nourished. No apparent distress. HEENT: Normocephalic, atraumatic. PERRL, EOM intact. CARDIOVASCULAR: Normal S1, S2. Regular rate and rhythm. PULMONARY: Clear to auscultation bilaterally. ABDOMEN: Soft, non-distended, non-tender. EXTREMITIES: Normal ROM in all four extremities. No gross deformities. SKIN: Warm, dry. No rash NEUROLOGICAL: No focal neurological deficits. - Medical Decision Making 12/28/17 20:16 Documentation prepared by Yi Gallagher, acting as medical program specialist for Shaila Low MD EXAM: CT head without contrast HISTORY: Dizziness COMPARISON: None. FINDINGS: There is mild to moderate cortical atrophy present. Mildly diminished attenuation in the periventricular white matter compatible with chronic small vessel ischemic change. No acute infarction. No hemorrhage. No mass lesion is seen. No skull fracture is seen. Visualized portions of the paranasal sinuses are essentially clear. Mastoid air cells are normally pneumatized. If symptoms persist or worsen, consider followup evaluation with brain MRI. Individualized dose optimization techniques were used for this CT. Phillip Donnelly MD 12/28/2017 19:18 EST 12/28/17 21:32 The patient was reassessed and is improved and stable at this time. Will discharge home. Advised the patient to follow-up with her PCP, Dr. Cruz. Meclizine Rx to her pharmacy. <Yi Gallagher - Last Filed: 12/28/17 21:32> - Resident Resident Name: Anthony Rashid - ED Attending Attestation I have performed the following: I have examined & evaluated the patient, The case was reviewed & discussed with the resident, I agree w/resident's findings & plan, Exceptions are as noted - Medical Decision Making 12/28/17 21:35 IMP vertigo resolved <Shaila Low - Last Filed: 12/28/17 21:40>
[2017-12-28] MEDS ORDERED: MECLIZINE HCL 25 MG TABLET (FP) PO ONE (21:42)
[2017-12-28] MEDS ORDERED: MECLIZINE HCL 25 MG TABLET (FP) ONE (21:45)
[2017-12-28 21:48] VITALS: BP 140/83; PULSE 69; TEMP 98.1
--- NOTE | 2017-12-30 10:47 | EKG ---
Test Reason : Blood Pressure : / mmHG Vent. Rate : 059 BPM Atrial Rate : 059 BPM P-R Int : 190 ms QRS Dur : 104 ms QT Int : 468 ms P-R-T Axes : 079 -49 050 degrees QTc Int : 463 ms SINUS BRADYCARDIA WITH OCCASIONAL PREMATURE VENTRICULAR COMPLEXES AND PREMATURE ATRIAL COMPLEXES INCOMPLETE RIGHT BUNDLE BRANCH BLOCK LEFT ANTERIOR FASCICULAR BLOCK NONSPECIFIC T WAVE ABNORMALITY ABNORMAL ECG WHEN COMPARED WITH ECG OF 04-MAY-2016 21:00, PREMATURE VENTRICULAR COMPLEXES ARE NOW PRESENT Confirmed by Shady Austin MD ([id number]) on 12/30/2017 10:47:24 AM Referred By: Confirmed By:Shady Austin MD
== END 2017-12-28 22:34 | disposition home or self-care (01) ==
LOC: JER 17:02
DX: R42 Dizziness and giddiness (principal); I10 Essential (primary) hypertension; I48.91 Unspecified atrial fibrillation; Z79.01 Long term (current) use of anticoagulants; E66.9 Obesity, unspecified; Z68.38 Body mass index [BMI] 38.0-38.9, adult
CPT/HCPCS: 36415; 70450-TC; 80053; 81003; 82550; 84484; 85025; 85610; 87086; 93005; 93010; 99282-25

== ENCOUNTER 2018-10-07 08:40 | Day surgery (SDC) | payer OTHER ==
[2018-10-06 10:57] VITALS: BMI 38.2
[~2018-10-07 08:40] MED LIST: ACETAMINOPHEN 325 MG TABLET (FP) PO PRN
[2018-10-07] MEDS: CYCLOPENTOLATE HCL 1% OPHTH SOLN 2 ML BOTTLE OP SCH ×3 (09:00→09:10)
[2018-10-07] MEDS: TROPICAMIDE 1% OPHTH SOLN 15 ML BOTTLE OP SCH ×3 (09:00→09:10)
[2018-10-07] MEDS: PHENYLEPHRINE 2.5% OPHTH SOLN 15 ML BOTTLE OP SCH ×3 (09:00→09:10)
[2018-10-07] MEDS: KETOROLAC TROMETHAMINE 0.5% EYE DROP 1 DROP DROPS OP SCH ×3 (09:00→09:10)
[2018-10-07] MEDS: OFLOXACIN 0.3% OPHTHALMIC SOLUTION 5 ML BOTTLE OP SCH ×3 (09:00→09:10)
[2018-10-07] MEDS ORDERED: MIDAZOLAM HCL 2 MG/2 ML SINGLE DOSE VIAL ONE (10:17)
[2018-10-07] MEDS ORDERED: TETRACAINE 0.5% OPHTH SOLN 2 ML BOTTLE OS ONE (10:20)
[2018-10-07] MEDS ORDERED: POVIDONE-IODINE 5% OPHTHALMIC PREP 30 ML SOLUTION OS ONE (10:21)
[2018-10-07] MEDS ORDERED: BSS (NA/CA/MG/K) BALANCED SALT SOLUTION OPHTH SOLN 15 ML BOTTLE OS ONE (10:30)
[2018-10-07] MEDS ORDERED: LIDOCAINE HCL 1% PRESERVATIVE FREE - 30ML VIAL IO ONE (10:30)
[2018-10-07] MEDS ORDERED: CHONDROITIN SU A/HYALUR SOD 1 KIT IO ONE (10:30)
[2018-10-07] MEDS ORDERED: TRYPAN BLUE 0.5 ML DISP.SYRIN IO ONE (10:30)
[2018-10-07] MEDS ORDERED: EPINEPHrine/PF 1 MG/1 ML (1:1,000) AMPULE SQ ONE (10:37)
[2018-10-07 13:25] VITALS: BP 126/72; PULSE 61; TEMP 97.7
--- NOTE | 2018-10-07 14:24 | SPEC ---
DATE OF OPERATION: 10/07/2018 OPERATION: Phacoemulsification of left cataract, capsular staining with Trypan blue, and posterior chamber intraocular lens implantation. Lens used: [id number], Diopter power 23.5, Serial No. [id number]. PREOPERATIVE DIAGNOSIS: Cataract, left eye. POSTOPERATIVE DIAGNOSIS: Cataract, left eye. SURGEON: Mae Lazo M.D. ANESTHESIA: Topical MAC. COMPLICATIONS: None. PROCEDURE: The patient was brought to the operating room and correctly identified along with the operative site as well as correct intraocular lens ramos. The patient was then prepped and draped in the usual sterile fashion including 5% Betadine solution in the conjunctival sac and an eyelid drape. An eyelid speculum was then placed into the operative eye. The eye was inspected and a poor red reflex was noted. A paracentesis port was created and .5 mL of intracameral preservative-free Lidocaine 1% was given. Beneath an air bubble, the capsule was then stained with Trypan blue. The Trypan blue was then irrigated from the eye with balanced salt solution (BBS). Viscoelastic was injected to inflate the anterior chamber. A temporal clear corneal would was created. A continuous circular capsulorrhexis was performed. The nucleus was then hydro-dissected and hydro-delineated was BSS and removed with phacoemulsification via [id number] approach. The remaining cortical material was irrigated and aspirated from the eye. Viscoelastic was injected in the anterior chamber to inflate the capsular bag. The intraocular lens was then injected into the bag. The Viscoelastic was irrigated and aspirated from the eye. All wounds were tested and found to be watertight. No suture was placed. The intraocular lens was noted to be well centered and covered by the anterior capsular border. Topical Vancomycin was given. The eye was patched and shielded. The patient was discharged from the operating room in stable condition. MAE LAZO M.D. [id number]
== END 2018-10-07 13:20 | disposition home or self-care (01) ==
LOC: JASU-SURG 08:40
PROVIDERS: ATTEND Ophthalmology
PROC: 08RK3JZ Replacement of Left Lens with Synthetic Substitute, Percutaneous Approach (ICD-10-PCS; principal; 2018-10-07 10:00)
DX: H26.9 Unspecified cataract (principal)

== ENCOUNTER 2019-05-14 21:22 | Inpatient (IN) | payer OTHER ==
[2019-05-14] MEDS ORDERED: ACETAMINOPHEN 500 MG TABLET (FP) PO ONE (22:09)
--- NOTE | 2019-05-14 22:09 | PDOC ---
History of Present Illness - General Chief Complaint: Pain Stated Complaint: PAIN Time Seen by Provider: 05/14/19 22:00 History Source: Patient - History of Present Illness Initial Comments: 05/14/19 22:31 73-year-old female complaining of right-sided neck and shoulder pain worse with movement. Patient reports since waking up yesterday. Patient denies taking anything for pain. Patient has a past medical history of hypertension and A. fib on Eliquis Past History - Past Medical History Allergies/Adverse Reactions: Allergies Allergy/AdvReac Type Severity Reaction Status Date / Time No Known Allergies Allergy Verified 05/14/19 21:29 Home Medications: Ambulatory Orders Metoprolol Succinate [Toprol XL -] 50 mg PO HS 05/21/11 Olmesartan/Amlodipin/Hcthiazid [Tribenzor 40-5-25 mg Tablet] 1 each PO DAILY Apixaban [Eliquis] 5 mg PO BID 10/06/18 Dronedarone HCl [Multaq -] 400 mg PO BID 10/06/18 Meclizine HCl [Antivert -] 12.5 mg PO PRN PRN 10/06/18 Pravastatin Sodium 10 mg PO HS 10/06/18 Asthma: (HX PNEUMOPNIA) Cardiac Disorders: Yes (AFIB) COPD: No HTN: Yes Thyroid Disease: Yes (found nodules bilaterally) - Surgical History Orthopedic Surgery: Yes (TKR RIGHT) - Immunization History Immunization Up to Date: Yes (no flu vaccine) - Psycho Social/Smoking Cessation Hx Smoking Status: No Smoking History: Never smoked Have you smoked in the past 12 months: No Number of Cigarettes Smoked Daily: 0 Hx Alcohol Use: No Drug/Substance Use Hx: No Substance Use Type: None Hx Substance Use Treatment: No Review of Systems - Review of Systems Able to Perform ROS?: Yes Is the patient limited Sinhala proficient: No Constitutional: No: Symptoms Reported, See HPI, Chills, Diaphoresis, Fever, Loss of Appetite, Malaise, Night Sweats, Weakness, Weight Stable, Unintentional Wgt. Loss, Unexplained wgt Loss, Other Musculoskeletal: Yes: Muscle Pain Neurological: Yes: Other (neck pain) *Physical Exam - Vital Signs Last Vital Signs Temp Pulse Resp BP Pulse Ox 98.3 F 68 18 151/70 100 05/14/19 21:26 05/14/19 21:26 05/14/19 21:26 05/14/19 21:26 05/14/19 21:26 - Physical Exam General Appearance: Yes: Appropriately Dressed Neck: positive: Rigid, Tender lateral. negative: Tender midline Musculoskeletal: positive: Muscle Spasm (right sided neck pain woirse with movement with point tenderness) Extremity: positive: Normal Capillary Refill, Normal Inspection, Normal Range of Motion Integumentary: positive: Normal Color, Dry, Warm Neurologic: positive: chef manager II-XII NML intact, Fully Oriented, Alert, Normal Mood/ Affect ED Progress Note - Progress Note Progress Note: 05/14/19 22:40 A: neck muscle spasm P: Tylenol and reevaluate will consider further work up if no imporvement with pain Meds Medical Decision Making - Medical Decision Making 05/14/19 22:56 patient has no significant improvement in pain. patient is now c/o occipital headache Will work-up for will CTA neck and CT head rule out any acute cause 05/14/19 22:[address] self. Charge nurse jaleel made aware. patient to be transferred to the Main 05/14/19 22:58 Discharge - Discharge Information Problems reviewed: Yes Clinical Impression/Diagnosis: Neck pain Headache Qualifiers: Headache type: unspecified Headache chronicity pattern: unspecified pattern Intractability: not intractable Qualified Code(s): R51 - Headache - Follow up/Referral Referrals: Delio Cruz MD [Primary Care Provider] - - Patient Discharge Instructions - Post Discharge Activity
[2019-05-14] MEDS ORDERED: ACETAMINOPHEN 325 MG TABLET (FP) ONE (22:12)
[2019-05-14 23:17] LABS: BASO % 1.1 % (0-2.0); EOS % 1.1 % (0-4.5); HEMOGLOBIN 11.9 GM/dL (10.7-15.3); LYMPH % 15.5 % (8-40); MEAN CELL VOLUME 96.9 fl (80-96); MEAN PLT VOLUME 10.1 fl (7.5-11.1); MONO % 8.8 % (3.8-10.2); NEUT % 73.5 % (42.8-82.8); PLATELET COUNT 263 K/MM3 (134-434); RBC 3.71 M/mm3 (3.60-5.2); RDW 12.9 % (11.6-15.6)
[2019-05-14 23:51] LABS: ALBUMIN 3.6 g/dl (3.4-5.0); ALK PHOS 92 U/L (45-117); ANION GAP 4 MMOL/L (8-16); BILIRUBIN,TOTAL 0.6 mg/dL (0.2-1); BLOOD UREA NITROGEN 40.6 mg/dL (7-18); CALCIUM 9.1 mg/dL (8.5-10.1); CHLORIDE 111 mmol/L (98-107); CO2 28 mmol/L (21-32); CREATININE 1.6 mg/dL (0.55-1.3); GLUCOSE,RANDOM 99 mg/dL (74-106); POTASSIUM 4.6 mmol/L (3.5-5.1); SGOT/AST 13 U/L (15-37); SGPT/ALT 14 U/L (13-61); SODIUM 143 mmol/L (136-145); TOT PROT 7.6 g/dl (6.4-8.2)
--- NOTE | 2019-05-15 00:02 | PDOC ---
History of Present Illness - General Chief Complaint: Pain Stated Complaint: PAIN Time Seen by Provider: 05/14/19 22:00 - History of Present Illness Initial Comments: The pt is a 73F w/ a history of a-fib (eliquis), HTN, gout who presents for evaluation of 2 days of right neck pain with associated intermittent episodes of dizziness. The pain is right neck, intermittent, sharp/achy, radiates up to R posterior head and to R shoulder, is exacerbated by movement and touch, and is mildly alleviated by Tylenol. She reports associated episodes of feeling off balance. Denies falls, LOC, or neck trauma. Denies fevers/chills, vision changes, chest pain, trouble breathing, N/V/C/D, abdominal pain, dysuria, or changes in sensation. 05/15/19 00:35 tPA Exclusion checklist 3-4.5h - Time Elapsed Date last known well: 05/13/19 Time last known well: 08:00 Elaspsed time: 1 Day(s) and 18 Hour(s) and 57 Minutes - Ineligibility reason(s) Reasons No tPA given: Outside of window - delayed arrival NIH Stroke Scale - Last Known Well Date/Time & Onset Date Last Known Well: 05/13/19 Time Last Known Well: 08:00 - Initial Evaluation Level of consciousness: Alert Ask patient the month and their age: Answers both correctly Ask patient to open & close eyes; make fist and let go: Obeys both correctly Best gaze (horizontal eye movement): Normal Visual field testing: No visual field loss Facial paresis (Show teeth/raise eyebrows/close eyes tight): Normal symmetrical movement Motor Function: Left Arm: Normal Motor Function: Right Arm: Normal (extends arm 90 (or 45) degrees for 10 seconds without drift Motor Function: Left Leg: Normal (extends leg 30 degrees for 5 seconds without drift) Motor Function: Right Leg: Normal (extends leg 30 degrees for 5 seconds without drift) Limb Ataxia: No ataxia Sensory(Use pinprick test arms,legs,trunk,face/side to side): Normal Best language (Describe picture, name items, read sentences): No Aphasia Dysarthria (read several words): Normal articulation Extinction and Inattention: No abnormality - Total Score NIH Stroke Scale Score: 0 Past History - Past Medical History Allergies/Adverse Reactions: Allergies Allergy/AdvReac Type Severity Reaction Status Date / Time No Known Allergies Allergy Verified 05/14/19 21:29 Home Medications: Ambulatory Orders Metoprolol Succinate [Toprol XL -] 50 mg PO HS 05/21/11 Olmesartan/Amlodipin/Hcthiazid [Tribenzor 40-5-25 mg Tablet] 1 each PO DAILY Apixaban [Eliquis] 5 mg PO BID 10/06/18 Dronedarone HCl [Multaq -] 400 mg PO BID 10/06/18 Meclizine HCl [Antivert -] 12.5 mg PO PRN PRN 10/06/18 Pravastatin Sodium 10 mg PO HS 10/06/18 Asthma: (HX PNEUMOPNIA) Cardiac Disorders: Yes (AFIB) COPD: No HTN: Yes Thyroid Disease: Yes (found nodules bilaterally) - Surgical History Orthopedic Surgery: Yes (TKR RIGHT) - Immunization History Immunization Up to Date: Yes (no flu vaccine) - Psycho Social/Smoking Cessation Hx Smoking Status: No Smoking History: Never smoked Have you smoked in the past 12 months: No Number of Cigarettes Smoked Daily: 0 Hx Alcohol Use: No Drug/Substance Use Hx: No Substance Use Type: None Hx Substance Use Treatment: No Review of Systems - Review of Systems Able to Perform ROS?: Yes Comments:: GENERAL/CONSTITUTIONAL: No fever or chills. No weakness HEAD, EYES, EARS, NOSE AND THROAT: No change in vision. No change in hearing. No sore throat CARDIOVASCULAR: No chest pain or shortness of breath RESPIRATORY: Denies cough, hemoptysis GASTROINTESTINAL: No nausea, vomiting, diarrhea or constipation GENITOURINARY: No dysuria, frequency, or change in urination MUSCULOSKELETAL: per HPI SKIN: No rash NEUROLOGIC: No loss of consciousness, or change in strength/sensation ENDOCRINE: No increased thirst. No abnormal weight change HEMATOLOGIC/LYMPHATIC: +eliquis ALLERGIC/IMMUNOLOGIC: No hives or skin allergy 05/15/19 00:37 Is the patient limited Greenlandic proficient: No *Physical Exam - Vital Signs Last Vital Signs Temp Pulse Resp BP Pulse Ox 98.3 F 68 18 151/70 100 05/14/19 21:26 05/14/19 21:26 05/14/19 21:26 05/14/19 21:26 05/14/19 21:26 - Physical Exam GENERAL: Awake, alert, and oriented to person/place/time, in no acute distress HEAD: No signs of trauma, normocephalic, atraumatic EYES: PERRLA, EOMI, sclera anicteric, conjunctiva clear ENT: Hearing grossly normal, nares patent, oropharynx clear without exudates. Moist mucosa NECK: R posterior neck TTP, FROM, no LAD, no bruit LUNGS: No distress, speaks in full sentences, clear to auscultation bilaterally HEART: Regular rate, irregularly irregular rhythm, normal S1 and S2, no murmurs appreciated, peripheral pulses normal and equal bilaterally ABDOMEN: Soft, protuberant, nontender, normoactive bowel sounds. No guarding, no rebound EXTREMITIES: Normal inspection, Normal range of motion, no edema. No clubbing or cyanosis NEUROLOGICAL: Cranial nerves II through XII grossly intact. Normal speech, normal gait, no focal sensorimotor deficits SKIN: Warm, Dry 05/15/19 00:37 ED Treatment Course - LABORATORY CBC & Chemistry Diagram: 05/14/19 22:58 05/14/19 22:58 - ADDITIONAL ORDERS Additional order review: Laboratory Results 05/14/19 22:58 Sodium 143 Potassium 4.6 Chloride 111 H Carbon Dioxide 28 Anion Gap 4 L BUN 40.6 H Creatinine 1.6 H Est GFR (CKD-EPI)AfAm 36.16 Est GFR (CKD-EPI)NonAf 31.20 Random Glucose 99 Calcium 9.1 Total Bilirubin 0.6 AST 13 L ALT 14 Alkaline Phosphatase 92 Creatine Kinase 64 Troponin I < 0.02 Total Protein 7.6 Albumin 3.6 05/14/19 22:58 RBC 3.71 MCV 96.9 H MCHC 33.0 RDW 12.9 D MPV 10.1 Neutrophils % 73.5 Lymphocytes % 15.5 Monocytes % 8.8 Eosinophils % 1.1 Basophils % 1.1 - Medications Given in the ED: ED Medications Discontinued Medications Generic Name Dose Route Start Last Admin Trade Name Freq PRN Reason Stop Dose Admin Acetaminophen 1,000 mg 05/14/19 22:09 05/14/19 22:14 Tylenol - PO 05/14/19 22:10 1,000 mg ONCE ONE Administration Medical Decision Making - Medical Decision Making The pt is a 73F w/ a history of a-fib (eliquis), HTN, gout who presents for evaluation of 2 days of right neck pain with associated intermittent episodes of dizziness. ED Course Labs sent CTA head and neck -GFR noted, risks and benefits of contrast study discussed with patient -Pt in agreement to proceed with study -Will give IVF s/p CT S/p Tylenol with some symptomatic relief ECG w/ junctional rhythm; HR 63; QTc 452; left ant fascicular block; poor baseline; abn ecg No leukocytosis No anemia Lytes unremarkable Cr noted, pt with known kidney disease LFTs unremarkable Trop I neg Pending CT 05/15/19 00:38 CTA 'cannot exclude small acute stroke' Will give Atorvastatin 80mg PO once Pt on Eliquis Plan for admission for MRI 05/15/19 01:[address] Curiel, agrees with Atorvastatin and admission for MRI Pt signed out to Shaila Tapia NP 05/15/19 02:17 Discharge - Discharge Information Problems reviewed: Yes Clinical Impression/Diagnosis: Neck pain Headache Qualifiers: Headache type: unspecified Headache chronicity pattern: unspecified pattern Intractability: not intractable Qualified Code(s): R51 - Headache CVA (cerebral vascular accident) Qualifiers: CVA mechanism: unspecified Qualified Code(s): I63.9 - Cerebral infarction, unspecified Condition: Stable - Admission Yes - Follow up/Referral - Patient Discharge Instructions - Post Discharge Activity
--- NOTE | 2019-05-15 01:21 | PDOC ---
*Physical Exam - Vital Signs Last Vital Signs Temp Pulse Resp BP Pulse Ox 98.3 F 68 18 151/70 100 05/14/19 21:26 05/14/19 21:26 05/14/19 21:26 05/14/19 21:26 05/14/19 21:26 ED Treatment Course - LABORATORY CBC & Chemistry Diagram: 05/14/19 22:58 05/14/19 22:58 - ADDITIONAL ORDERS Additional order review: Laboratory Results 05/14/19 02 22:58 22:58 Sodium 143 Potassium 4.6 Chloride 111 H Carbon Dioxide 28 Anion Gap 4 L BUN 40.6 H Creatinine 1.6 H Est GFR (CKD-EPI)AfAm 36.16 Est GFR (CKD-EPI)NonAf 31.20 Random Glucose 99 Calcium 9.1 Total Bilirubin 0.6 AST 13 L ALT 14 Alkaline Phosphatase 92 Creatine Kinase 64 Troponin I < 0.02 Total Protein 7.6 Albumin 3.6 Blood Type O POSITIVE Antibody Screen Negative 05/14/19 22:58 RBC 3.71 MCV 96.9 H MCHC 33.0 RDW 12.9 D MPV 10.1 Neutrophils % 73.5 Lymphocytes % 15.5 Monocytes % 8.8 Eosinophils % 1.1 Basophils % 1.1 - Medications Given in the ED: ED Medications Discontinued Medications Generic Name Dose Route Start Last Admin Trade Name Santosq PRN Reason Stop Dose Admin Acetaminophen 1,000 mg 05/14/19 22:09 05/14/19 22:14 Tylenol - PO 05/14/19 22:10 1,000 mg ONCE ONE Administration Medical Decision Making - Medical Decision Making 05/15/19 01:20 This 73-year-old female was initially evaluated by the midlevel provider and labs and imaging studies were ordered. This 73-year-old female presents because she has had some difficulty walking in the last 2 days and has had neck pain that is new. She denies any history of trauma. 05/15/19 01:21 BUN is equal to 40, creatinine equal to 1.6 CBC is unremarkable 05/15/19 02:18 CAT scan of the head could not rule out small stroke therefore the patient was admitted for further imaging study Dr. Curiel was consulted and agrees with the plan 05/15/19 02:27 Discharge - Discharge Information Problems reviewed: Yes Clinical Impression/Diagnosis: Neck pain Headache Qualifiers: Headache type: unspecified Headache chronicity pattern: unspecified pattern Intractability: not intractable Qualified Code(s): R51 - Headache CVA (cerebral vascular accident) Qualifiers: CVA mechanism: unspecified Qualified Code(s): I63.9 - Cerebral infarction, unspecified Condition: Stable - Follow up/Referral - Patient Discharge Instructions - Post Discharge Activity
[2019-05-15] MEDS ORDERED: ATORVASTATIN CA 80 MG TABLET (FP) PO ONE (01:52)
[2019-05-15] MEDS ORDERED: ATORVASTATIN CA 80 MG TABLET (FP) ONE (02:02)
[2019-05-15] MEDS ORDERED: SODIUM CHLORIDE 0.9% 500 ML INFUS.BAG IV ONE (02:04)
--- NOTE | 2019-05-15 02:13 | HP ---
Admitting History and Physical - Primary Care Physician PCP: Delio Cruz - Admission Chief Complaint: R- Neck, Occipital Pain History of Present Illness: This is a 73 y/o woman with a PMHx of HTN, HLD, pAfib (on Eliquis, Multaq), Non Obstructing CAD, Asthma, Pneumonia, Thyroid Nodules. Who presents to the Ed with worsening right sided neck and occipital pain x 1 day. Patient reports having a sudden sharp pain to her neck which radiates to her head, right shoulder and down her right arm. Patient reports 4 days earlier she had blurred vision lasting a few seconds until it returned to baseline. She then reports noting on Friday and Friday that her gait was "off"- then returning to baseline. The patient denies having parasthesias, slurred speech, or facial droop.. Patient denies fever, chills, cough, SOB, CP, palpitations, AP, N/V/D, constipation, dysuria. ED course was noted for: (1) Head CT- no acute ICH, mass effect, or midline shift. mild small vessel ischemic white matter disease (2) BUN 40.6. Cr 1.6 (3) History Source: Patient Limitations to Obtaining History: No Limitations - Past Medical History Cardiovascular: Yes: AFIB (paroxysmal afib diagnosed 03/08/16 (on Pradaxa)), CAD (Non-obstructive CAD per 03/12/11 cardiac cath), HTN, Hyperlipdemia Rheumatology: Yes: Gout - Past Surgical History Past Surgical History: Yes: None Additional Past Surgical History: x3 TOP x1 - Smoking History Smoking history: Never smoked Have you smoked in the past 12 months: No Aproximately how many cigarettes per day: 0 - Alcohol/Substance Use Hx Alcohol Use: No History of Substance Use: reports: None - Social History Usual Living Arrangement: Yes: Alone ADL: Independent Occupation: Retired History of Recent Travel: No Home Medications - Allergies Allergies/Adverse Reactions: Allergies Allergy/AdvReac Type Severity Reaction Status Date / Time No Known Allergies Allergy Verified 05/14/19 21:29 - Home Medications Home Medications: Ambulatory Orders Metoprolol Succinate [Toprol XL -] 50 mg PO HS 05/21/11 Olmesartan/Amlodipin/Hcthiazid [Tribenzor 40-5-25 mg Tablet] 1 each PO DAILY Apixaban [Eliquis] 5 mg PO BID 10/06/18 Dronedarone HCl [Multaq -] 400 mg PO BID 10/06/18 Meclizine HCl [Antivert -] 12.5 mg PO PRN PRN 10/06/18 Pravastatin Sodium 10 mg PO HS 10/06/18 Family Medical History Family Hx Cancer: Mother (Pancreatic), Sister (Eye) Review of Systems - Review of Systems Constitutional: reports: No Symptoms Eyes: reports: Blurred Vision HENT: reports: No Symptoms Neck: reports: Decreased ROM, Pain on Movement, Tenderness Cardiovascular: reports: No Symptoms Respiratory: reports: No Symptoms Gastrointestinal: reports: No Symptoms Genitourinary: reports: No Symptoms Breasts: reports: No Symptoms Reported Musculoskeletal: reports: Extremity Pain, Joint Pain Integumentary: reports: No Symptoms Neurological: reports: Headache, Unsteady Gait Endocrine: reports: No Symptoms Hematology/Lymphatic: reports: No Symptoms Psychiatric: reports: No Symptoms Pain Intensity: 6 Physical Examination Vital Signs: Vital Signs Temperature 98.3 F 05/14/19 21:26 Pulse Rate 68 05/14/19 21:26 Respiratory Rate 18 05/14/19 21:26 Blood Pressure 151/70 05/14/19 21:26 O2 Sat by Pulse Oximetry (%) 100 05/14/19 21:26 Constitutional: Yes: Well Nourished, No Distress, Calm Eyes: Yes: WNL, Conjunctiva Clear, EOM Intact, PERRL HENT: Yes: WNL, Atraumatic, Normocephalic Neck: Yes: Supple, Trachea Midline, Tenderness (right anterior aspect- TTP) Cardiovascular: Yes: WNL, Regular Rate and Rhythm, S1, S2 Respiratory: Yes: WNL, Regular, CTA Bilaterally Gastrointestinal: Yes: WNL, Normal Bowel Sounds, Soft, Abdomen, Obese ...Rectal Exam: Yes: Deferred Renal/: Yes: WNL Breast(s): Yes: WNL Musculoskeletal: Yes: WNL Extremities: Yes: WNL Edema: No Peripheral Pulses WNL: Yes Integumentary: Yes: WNL Neurological: Yes: WNL, Alert, Oriented, Cran Nerves II-XII Intact ...Motor Strength: WNL Psychiatric: Yes: WNL, Alert, Oriented Labs: CBC, BMP 05/14/19 22:58 05/14/19 22:58 Laboratory Results - last 24 hr 05/14/19 05/14/19 05/14/19 22:58 22:58 22:58 WBC 9.0 RBC 3.71 Hgb 11.9 Hct 36.0 MCV 96.9 H MCH 32.0 MCHC 33.0 RDW 12.9 D Plt Count 263 MPV 10.1 Absolute Neuts (auto) 6.6 Neutrophils % 73.5 Lymphocytes % 15.5 Monocytes % 8.8 Eosinophils % 1.1 Basophils % 1.1 Nucleated RBC % 0 Sodium 143 Potassium 4.6 Chloride 111 H Carbon Dioxide 28 Anion Gap 4 L BUN 40.6 H Creatinine 1.6 H Est GFR (CKD-EPI)AfAm 36.16 Est GFR (CKD-EPI)NonAf 31.20 Random Glucose 99 Calcium 9.1 Total Bilirubin 0.6 AST 13 L ALT 14 Alkaline Phosphatase 92 Creatine Kinase 64 Troponin I < 0.02 Total Protein 7.6 Albumin 3.6 Urine Color Urine Appearance Urine pH Ur Specific [place] Urine Protein Urine Glucose (UA) Urine Ketones Urine Blood Urine Nitrite Urine Bilirubin Urine Urobilinogen Ur Leukocyte Esterase Urine WBC (Auto) Urine RBC (Auto) U Epithel Cells (Auto) Urine Bacteria (Auto) Blood Type O POSITIVE Antibody Screen Negative 05/15/19 02:23 WBC RBC Hgb Hct MCV MCH MCHC RDW Plt Count MPV Absolute Neuts (auto) Neutrophils % Lymphocytes % Monocytes % Eosinophils % Basophils % Nucleated RBC % Sodium Potassium Chloride Carbon Dioxide Anion Gap BUN Creatinine Est GFR (CKD-EPI)AfAm Est GFR (CKD-EPI)NonAf Random Glucose Calcium Total Bilirubin AST ALT Alkaline Phosphatase Creatine Kinase Troponin I Total Protein Albumin Urine Color Yellow Urine Appearance Clear Urine pH 5.0 Ur Specific [place] 1.045 H Urine Protein Negative Urine Glucose (UA) Negative Urine Ketones Negative Urine Blood Negative Urine Nitrite Negative Urine Bilirubin Negative Urine Urobilinogen 0.2 Ur Leukocyte Esterase Negative Urine WBC (Auto) 2 Urine RBC (Auto) 3 U Epithel Cells (Auto) 3 Urine Bacteria (Auto) Negative Blood Type Antibody Screen Intake & Output 05/12/19 05/13/19 05/14/19 05/15/19 23:59 23:59 23:59 23:59 Weight 99.79 kg Imaging - Results Cat Scan: Report Reviewed, Image Reviewed EKG: Image Reviewed Problem List - Problems (1) CVA (cerebral vascular accident) Assessment/Plan: Likely TIA NIHSS [address]- reviewed Appreciate Neurology consult Neuro checks Carotid Doppler Echo Lipid Profile CBC, BMP in am Serial Enzymes Swallow Eval NPO Gentle IVF Asa given in ED Fall Precautions Code(s): I63.9 - CEREBRAL INFARCTION, UNSPECIFIED Qualifiers: CVA mechanism: unspecified Qualified Code(s): I63.9 - Cerebral infarction, unspecified (2) Ataxia Assessment/Plan: see above Code(s): R27.0 - ATAXIA, UNSPECIFIED (3) Neck pain Assessment/Plan: Likely secondary to muscle spasm vs pinched nerve vs TIA vs CVA NECK CTA-reviewed Tylenol given with improvement, will continue Aspiration Precautions Code(s): M54.2 - CERVICALGIA (4) Headache Assessment/Plan: Likely secondary to Pinched Nerve vs CVA vs Migraine Head CT- reviewed Appreciate Neurology consult Neuro checks Monitor vitals Tylenol prn Code(s): R51 - HEADACHE Qualifiers: Headache type: unspecified Headache chronicity pattern: unspecified pattern Intractability: not intractable Qualified Code(s): R51 - Headache (5) CAD (coronary artery disease) Assessment/Plan: stable Continue Metoprolol with parameters, Losartan, Amlodipine Hold HCTZ secondary to VLAD Monitor BP Monitor CBC, BMP Code(s): I25.10 - ATHSCL HEART DISEASE OF [place] CORONARY ARTERY W/O ANG PCTRS (6) Asthma Assessment/Plan: stable No acute flare Albuterol MDI prn Monitor vitals Code(s): J45.909 - UNSPECIFIED ASTHMA, UNCOMPLICATED (7) Atrial fibrillation Assessment/Plan: EKG reviewed [id number] Continue Eliquis, Multaq Continue cardiac monitoring Code(s): I48.91 - UNSPECIFIED ATRIAL FIBRILLATION (8) HTN (hypertension) Assessment/Plan: stable Hold BB, Tribenzor due to r/o CVA, acute on chronic CKD- defer to Cardiology, Neurology Monitor BP Monitor renal function Code(s): I10 - ESSENTIAL (PRIMARY) HYPERTENSION (9) Severe obesity (BMI 35.0-35.9 with comorbidity) Assessment/Plan: Counseled on weight reduction Carb Control Diet, when diet resumed Code(s): E66.01 - MORBID (SEVERE) OBESITY DUE TO EXCESS CALORIES; Z68.35 - BODY MASS INDEX (BMI) 35.0-35.9, ADULT Assessment/Plan This is a 73 y/o woman with a PMHx of HTN, HLD, pAfib (on Eliquis, Multaq), Non Obstructing CAD, Asthma, Pneumonia, Thyroid Nodules. Admitted to the Stroke unit for TIA r/o CVA, VLAD for further evaluation of their emergent condition. Plan: See Problem List FEN D5.45%NS@60ml/hr Replete lytes prn NPO DVT ppx OOB SCDs Continue Eliquis Dispo: Requires Inpatient Care Visit type - Emergency Visit Emergency Visit: Yes ED Registration Date: 05/14/19 Care time: The patient presented to the Emergency Department on the above date and was hospitalized for further evaluation of their emergent condition. - New Patient This patient is new to me today: Yes Date on this admission: 05/15/19 - Critical Care Critical Care patient: No
[2019-05-15 05:43] LABS: URINE APPEARANCE CLEAR; URINE COLOR YELLOW; URINE GLUCOSE (UA) NEGATIVE (NEGATIVE)
[2019-05-15 05:44] LABS: URINE BILIRUBIN NEGATIVE (NEGATIVE); URINE KETONE NEGATIVE (NEGATIVE); URINE PROTEIN NEGATIVE (NEGATIVE); URINE UROBILINOGEN 0.2 mg/dL (0.2-1.0)
[2019-05-15 05:45] LABS: EPI CELLS 3 /HPF (0-5/HPF); URINE LEUK ESTERASE NEGATIVE (NEGATIVE); URINE NITRITE NEGATIVE (NEGATIVE); URINE RBC 3 /hpf (0-4); URINE WBC 2 /hpf (0-5)
[2019-05-15 05:46] LABS: URINE BACTERIA NEGATIVE /hpf (NEGATIVE)
[2019-05-15] MEDS ORDERED: ACETAMINOPHEN 325 MG TABLET (FP) PO PRN (06:00)
[2019-05-15] MEDS: DEXTROSE 5%-0.45% SALINE 1,000 ML IV SCH (06:45)
[2019-05-15 07:30] LABS: INR 1.25 (0.83-1.09); PROTHROMBIN TIME (PATIENT) 14.8 SEC (9.7-13.0)
[2019-05-15 07:30] LABS: BASO % 0.7 % (0-2.0); EOS % 1.6 % (0-4.5); HEMATOCRIT 33.8 % (32.4-45.2); HEMOGLOBIN 11.2 GM/dL (10.7-15.3); LYMPH % 19.6 % (8-40); MCH 31.6 pg (25.7-33.7); MCHC 33.2 g/dl (32.0-36.0); MEAN CELL VOLUME 95.2 fl (80-96); MONO % 8.5 % (3.8-10.2); NEUT % 69.6 % (42.8-82.8); PLATELET COUNT 246 K/MM3 (134-434); RBC 3.55 M/mm3 (3.60-5.2); RDW 12.8 % (11.6-15.6); WHITE BLOOD COUNT 7.7 K/mm3 (4.0-10.0)
[2019-05-15 07:33] LABS: ACTIVATED PTT 37.3 SECONDS (25.2-36.5)
[2019-05-15 07:56] LABS: BLOOD UREA NITROGEN 31.5 mg/dL (7-18); CALCIUM 8.8 mg/dL (8.5-10.1); CREATININE 1.3 mg/dL (0.55-1.3); MAGNESIUM 2.1 mg/dL (1.8-2.4); PHOSPHOROUS 3.2 mg/dL (2.5-4.9); POTASSIUM 3.7 mmol/L (3.5-5.1)
[2019-05-15] MEDS ORDERED: ALBUTEROL SO4 HFA INHALER IH PRN (08:13)
[2019-05-15] MEDS: APIXABAN 5 MG TABLET PO SCH ×2 (09:46→22:31)
--- NOTE | 2019-05-15 10:00 | PN ---
Progress Note, Physician - Current Medication List Current Medications: Active Medications Acetaminophen (Tylenol -) 650 mg PO Q6H PRN PRN Reason: PAIN LEVEL 6-10 Albuterol Sulfate (Ventolin Hfa Inhaler -) 2 puff IH Q4H PRN PRN Reason: SHORT OF BREATH/WHEEZING Apixaban (Eliquis -) 5 mg PO BID [facility] Last Admin: 05/15/19 09:46 Dose: 5 mg Atorvastatin Calcium (Lipitor -) 10 mg PO HS [facility] Dronedarone (Multaq -) 400 mg PO BIDWM [facility] Dextrose/Sodium Chloride (D5-1/2ns -) 1,000 mls @ 60 mls/hr IV ASDIR [facility] Last Admin: 05/15/19 06:45 Dose: 60 mls/hr - Objective Vital Signs: Vital Signs Temperature 98.3 F 05/14/19 21:26 Pulse Rate 68 05/14/19 21:26 Respiratory Rate 18 05/14/19 21:26 Blood Pressure 151/70 05/14/19 21:26 O2 Sat by Pulse Oximetry (%) 100 05/14/19 21:26 Cardiovascular: Yes: Regular Rate and Rhythm Respiratory: Yes: Regular, CTA Bilaterally Gastrointestinal: Yes: Normal Bowel Sounds, Soft Labs: CBC, BMP 05/15/19 06:55 05/15/19 06:55 INR, PTT INR 1.25 (0.83-1.09) H 05/15/19 06:56 Problem List - Problems (1) Neck pain Assessment/Plan: mayb due to disc ds ct head nad decadron neuro Code(s): M54.2 - CERVICALGIA (2) Headache Assessment/Plan: no sig acute path on ct maybe muscular decadron Code(s): R51 - HEADACHE Qualifiers: Headache type: unspecified Headache chronicity pattern: unspecified pattern Intractability: not intractable Qualified Code(s): R51 - Headache (3) CAD (coronary artery disease) Code(s): I25.10 - ATHSCL HEART DISEASE OF [place] CORONARY ARTERY W/O ANG PCTRS (4) Atrial fibrillation Assessment/Plan: continue with AC Code(s): I48.91 - UNSPECIFIED ATRIAL FIBRILLATION
[2019-05-15] MEDS ORDERED: PANTOPRAZOLE 40 MG TABLET ONE (11:47)
[2019-05-15] MEDS: PANTOPRAZOLE 40 MG TABLET PO SCH (11:48)
--- NOTE | 2019-05-15 12:12 | CONSULT ---
Consult - text type - Consultation Consultation Note: Neurology PCP: Delio Cruz Chief Complaint: R- Neck, Occipital Pain History of Present Illness: This is a 73 y/o woman with a PMHx of HTN, HLD, pAfib (on Eliquis, Multaq), Non Obstructing CAD, Asthma, Pneumonia, Thyroid Nodules. Presented to the Ed with worsening right sided neck and occipital pain x 1 day prior to admission. Patient reports having a sudden sharp pain to her neck which radiates to her head, right shoulder and down her right arm. Patient reports 4 days prior to admission, she had blurred vision lasting a few seconds until it returned to baseline. She then reports noting on Friday and Friday that her gait was "off"- then returning to baseline. The patient denies having parasthesias, slurred speech, or facial droop. Patient denies fever, chills, cough, SOB, CP, palpitations, AP, N/V/D, constipation, dysuria. Head CT completed, results pending. Neck CTA completed, results pending. Patient in good spirit and states she's feeling better. Still with some neck discomfort. Has been put on low dose Medrol 4mg. Will add low dose cyclobenzaprine. - Past Medical History Cardiovascular: Yes: AFIB (paroxysmal afib diagnosed 03/08/16 (on Pradaxa)), CAD (Non-obstructive CAD per 03/12/11 cardiac cath), HTN, Hyperlipdemia Rheumatology: Yes: Gout - Past Surgical History Past Surgical History: Yes: None Additional Past Surgical History: x3 TOP x1 - Smoking History Smoking history: Never smoked Have you smoked in the past 12 months: No Aproximately how many cigarettes per day: 0 - Alcohol/Substance Use Hx Alcohol Use: No History of Substance Use: reports: None - Social History Usual Living Arrangement: Yes: Alone ADL: Independent Occupation: Retired History of Recent Travel: No Family Medical History Family Hx Cancer: Mother (Pancreatic), Sister (Eye) Allergies Allergy/AdvReac Type Severity Reaction Status Date / Time No Known Allergies Allergy Verified 05/14/19 21:29 Ambulatory Orders Metoprolol Succinate [Toprol XL -] 50 mg PO HS 05/21/11 Olmesartan/Amlodipin/Hcthiazid [Tribenzor 40-5-25 mg Tablet] 1 each PO DAILY 05/ 15/15 Apixaban [Eliquis] 5 mg PO BID 10/06/18 Dronedarone HCl [Multaq -] 400 mg PO BID 10/06/18 Meclizine HCl [Antivert -] 12.5 mg PO PRN PRN 10/06/18 Pravastatin Sodium 10 mg PO HS 10/06/18 Active Medications Acetaminophen (Tylenol -) 650 mg PO Q6H PRN PRN Reason: PAIN LEVEL 6-10 Albuterol Sulfate (Ventolin Hfa Inhaler -) 2 puff IH Q4H PRN PRN Reason: SHORT OF BREATH/WHEEZING Apixaban (Eliquis -) 5 mg PO BID [facility] Last Admin: 05/15/19 09:46 Dose: 5 mg Atorvastatin Calcium (Lipitor -) 10 mg PO HS [facility] Dronedarone (Multaq -) 400 mg PO BIDWM [facility] Dextrose/Sodium Chloride (D5-1/2ns -) 1,000 mls @ 60 mls/hr IV ASDIR [facility] Last Admin: 05/15/19 06:45 Dose: 60 mls/hr Methylprednisolone (Medrol -) 4 mg PO QID [facility] Pantoprazole Sodium (Protonix -) 40 mg PO DAILY [facility] Last Admin: 05/15/19 11:48 Dose: 40 mg Review of Systems - Review of Systems Constitutional: reports: No Symptoms Eyes: reports: Blurred Vision HENT: reports: No Symptoms Neck: reports: Decreased ROM, Pain on Movement, Tenderness Cardiovascular: reports: No Symptoms Respiratory: reports: No Symptoms Gastrointestinal: reports: No Symptoms Genitourinary: reports: No Symptoms Breasts: reports: No Symptoms Reported Musculoskeletal: reports: Extremity Pain, Joint Pain Integumentary: reports: No Symptoms Neurological: reports: Headache, Unsteady Gait Endocrine: reports: No Symptoms Hematology/Lymphatic: reports: No Symptoms Psychiatric: reports: No Symptoms Pain Intensity: 6 Physical Examination Vital Signs: Vital Signs Period Temp Pulse Resp BP Sys/Quevedo Pulse Ox Last 24 Hr 98.3 F 68 18 151/70 100 Constitutional: Yes: Well Nourished, No Distress, Calm Eyes: Yes: WNL, Conjunctiva Clear, EOM Intact, PERRL HENT: Yes: WNL, Atraumatic, Normocephalic Neck: Yes: Supple, Trachea Midline, Tenderness (right anterior aspect- TTP) Cardiovascular: Yes: WNL, Regular Rate and Rhythm, S1, S2 Respiratory: Yes: WNL, Regular, CTA Bilaterally Gastrointestinal: Yes: WNL, Normal Bowel Sounds, Soft, Abdomen, Obese ...Rectal Exam: Yes: Deferred Renal/: Yes: WNL Breast(s): Yes: WNL Musculoskeletal: Yes: WNL Extremities: Yes: WNL Edema: No Peripheral Pulses WNL: Yes Integumentary: Yes: WNL Neurological: Yes: WNL, Alert, Oriented, Cran Nerves II-XII Intact, moves all extremities equally, sensory intact to LT Psychiatric: Yes: WNL, Alert, Oriented Labs: CBCD WBC 7.7 K/mm3 (4.0-10.0) 05/15/19 06:55 RBC 3.55 M/mm3 (3.60-5.2) L 05/15/19 06:55 Hgb 11.2 GM/dL (10.7-15.3) 05/15/19 06:55 Hct 33.8 % (32.4-45.2) 05/15/19 06:55 MCV 95.2 fl (80-96) 05/15/19 06:55 MCHC 33.2 g/dl (32.0-36.0) 05/15/19 06:55 RDW 12.8 % (11.6-15.6) 05/15/19 06:55 Plt Count 246 K/MM3 (134-434) 05/15/19 06:55 MPV 10.0 fl (7.5-11.1) 05/15/19 06:55 CMP Sodium 142 mmol/L (136-145) 05/15/19 06:55 Potassium 3.7 mmol/L (3.5-5.1) 05/15/19 06:55 Chloride 111 mmol/L (98-107) H 05/15/19 06:55 Carbon Dioxide 27 mmol/L (21-32) 05/15/19 06:55 Anion Gap 5 MMOL/L (8-16) L 05/15/19 06:55 BUN 31.5 mg/dL (7-18) H 05/15/19 06:55 Creatinine 1.3 mg/dL (0.55-1.3) 02/15/20 06:55 Random Glucose 90 mg/dL (74-106) 05/15/19 06:55 Calcium 8.8 mg/dL (8.5-10.1) 05/15/19 06:55 Total Bilirubin 0.6 mg/dL (0.2-1) 05/14/19 22:58 AST 13 U/L (15-37) L 05/14/19 22:58 ALT 14 U/L (13-61) 05/14/19 22:58 Alkaline Phosphatase 92 U/L (45-117) 05/14/19 22:58 Total Protein 7.6 g/dl (6.4-8.2) 05/14/19 22:58 Albumin 3.6 g/dl (3.4-5.0) 05/14/19 22:58 CARDIAC ENZYMES Creatine Kinase 64 U/L (26-192) 05/14/19 22:58 Troponin I < 0.02 ng/ml (0.00-0.05) 05/14/19 22:58 ASSESSMENT/PLAN This is a 73 y/o woman with a PMHx of HTN, HLD, pAfib (on Eliquis, Multaq), Non Obstructing CAD, Asthma, Pneumonia, Thyroid Nodules. Presented to the Ed with worsening right sided neck and occipital pain x 1 day prior to admission. Patient reports having a sudden sharp pain to her neck which radiates to her head, right shoulder and down her right arm. Patient reports 4 days prior to admission, she had blurred vision lasting a few seconds until it returned to baseline. She then reports noting on Friday and Friday that her gait was "off"- then returning to baseline. The patient denies having parasthesias, slurred speech, or facial droop. Patient denies fever, chills, cough, SOB, CP, palpitations, AP, N/V/D, constipation, dysuria. Head CT completed, results pending. Neck CTA completed, results pending. Patient in good spirit and states she's feeling better. Still with some neck discomfort. Has been put on low dose Medrol 4mg. Will add low dose cyclobenzaprine 5mg twice daily. Consider physical therapy. Avoid signficant strain of C spine. Conservative mgmt for now.
[2019-05-15] MEDS ORDERED: CYCLOBENZAPRINE HCL 10 MG TABLET (FP) ONE (13:14)
[2019-05-15] MEDS: CYCLOBENZAPRINE HCL 5 MG TABLET PO SCH ×2 (13:26→22:31)
[2019-05-15] MEDS: methylPREDNISolone 4 MG TABLET PO SCH ×3 (14:15→22:31)
--- NOTE | 2019-05-15 15:22 | CON.NEP ---
Consult Consult Specialty:: nephrology Reason for Consultation:: ckd - History of Present Illness Chief Complaint: neck pain History of Present Illness: This is a 73 year old woman with history of ckd, hypertension , afib, thyroid nodules and CAD who presented with progressive right sided neck pain which she had never felt before. She did not have weakness, chest pain, nausea or vomiting. States that she has been stressed recently and asks if this could contribute to her symptoms. No difficulty urinating. Did not take anything because she is not a "pill pusher". She feels better. She saw Dr Hedrick last June and was told she needed to control her salt intake and to exercise but has not done it. - History Source History Provided By: Patient, Medical Record Limitations to Obtaining History: No Limitations - Past Medical History Cardio/Vascular: Yes: AFIB (paroxysmal afib diagnosed 03/08/16 (on Pradaxa)), CAD (Non-obstructive CAD per 03/12/11 cardiac cath), HTN, Hyperlipdemia Rheumatology: Yes: Gout - Past Surgical History Past Surgical History: Yes: None - Alcohol/Substance Use Hx Alcohol Use: No History of Substance Use: reports: None - Smoking History Smoking history: Never smoked Have you smoked in the past 12 months: No Aproximately how many cigarettes per day: 0 - Social History ADL: Independent Occupation: Retired History of Recent Travel: No Home Medications - Allergies Allergies/Adverse Reactions: Allergies Allergy/AdvReac Type Severity Reaction Status Date / Time No Known Allergies Allergy Verified 05/14/19 21:29 - Home Medications Home Medications: Ambulatory Orders Metoprolol Succinate [Toprol XL -] 50 mg PO HS 05/21/11 Olmesartan/Amlodipin/Hcthiazid [Tribenzor 40-5-25 mg Tablet] 1 each PO DAILY Apixaban [Eliquis] 5 mg PO BID 10/06/18 Dronedarone HCl [Multaq -] 400 mg PO BID 10/06/18 Meclizine HCl [Antivert -] 12.5 mg PO PRN PRN 10/06/18 Pravastatin Sodium 10 mg PO HS 10/06/18 Review of Systems - Review of Systems Constitutional: reports: No Symptoms Eyes: reports: No Symptoms HENT: reports: Throat Pain Neck: reports: Pain on Movement, Tenderness Cardiovascular: reports: No Symptoms Respiratory: reports: No Symptoms Gastrointestinal: reports: No Symptoms Genitourinary: reports: No Symptoms Breasts: reports: No Symptoms Reported Musculoskeletal: reports: Muscle Pain Integumentary: reports: No Symptoms Neurological: reports: No Symptoms Endocrine: reports: No Symptoms Hematology/Lymphatic: reports: No Symptoms Psychiatric: reports: No Symptoms Nephrology Consult - Height Height: 5 ft 3 in - Weight Weight: 220 lb - BMI Body Mass Index (BMI): 38.9 - Lab Results CBC,BMP: CBC, BMP 05/15/19 06:55 05/15/19 06:55 Anion Gap: Anion Gap Anion Gap 5 MMOL/L (8-16) L 05/15/19 06:55 - Imaging Cat Scan: Other (no report available yet) - Physical Examination Vital Signs: Vital Signs Temperature 98.3 F 05/14/19 21:26 Pulse Rate 56 L 05/15/19 13:27 Respiratory Rate 18 05/15/19 13:27 Blood Pressure 151/70 05/14/19 21:26 O2 Sat by Pulse Oximetry (%) 99 05/15/19 13:27 Constitutional: Yes: Well Nourished, No Distress Eyes: Yes: Conjunctiva Clear, EOM Intact HENT: Yes: Atraumatic, Normocephalic Neck: Yes: Supple, Trachea Midline Cardiovascular: Yes: Regular Rate and Rhythm Respiratory: Yes: Regular, CTA Bilaterally Gastrointestinal: Yes: Normal Bowel Sounds Renal/: Yes: WNL Musculoskeletal: Yes: WNL Extremities: Yes: WNL Edema: No Integumentary: Yes: WNL Neurological: Yes: Alert, Oriented Psychiatric: Yes: Alert, Oriented Assessment/Plan IMPRESSION ckd with no proteinuria atrophic left kidney on previous sonogram HTN CAD neck pain likely from muscle spasm, perhaps from cervical spinal disease PLAN would keep hydrated especially since she just received contrast monitor renal function avoid nsaids and other nephrotoxins heat, stretching, ultrasound to neck cardiology eval to see if multaq can be discontinued given side effects of renal insuff MV
--- NOTE | 2019-05-15 17:05 | EKG ---
Test Reason : Blood Pressure : / mmHG Vent. Rate : 063 BPM Atrial Rate : 441 BPM P-R Int : 000 ms QRS Dur : 100 ms QT Int : 442 ms P-R-T Axes : 000 -46 050 degrees QTc Int : 452 ms PROBABLY SINUS RHYTHM INCOMPLETE RIGHT BUNDLE BRANCH BLOCK LEFT ANTERIOR FASCICULAR BLOCK ABNORMAL ECG WHEN COMPARED WITH ECG OF 28-DEC-2017 17:05, NONSPECIFIC T WAVE ABNORMALITY, IMPROVED IN ANTERIOR LEADS BASELINE ARTIFACT CLINICAL CORRELATION IS RECOMMENDED Confirmed by CHANDNI DELGADO MD ([id number]) on 05/15/2019 5:04:38 PM Referred By: Confirmed By:CHANDNI DELGADO MD
[2019-05-15] MEDS: DRONEDARONE HCL 400 MG TAB (FP) PO SCH (19:08)
[2019-05-15] MEDS ORDERED: ATORVASTATIN CA 10 MG TABLET (FP) PO SCH (22:00)
[2019-05-15 23:37] VITALS: BMI 39.1
[2019-05-16] MEDS: DEXTROSE 5%-0.45% SALINE 1,000 ML IV SCH (07:18)
[2019-05-16] MEDS: DRONEDARONE HCL 400 MG TAB (FP) PO SCH (09:15)
[2019-05-16] MEDS: APIXABAN 5 MG TABLET PO SCH (09:59)
[2019-05-16] MEDS: CYCLOBENZAPRINE HCL 5 MG TABLET PO SCH (09:59)
[2019-05-16] MEDS: PANTOPRAZOLE 40 MG TABLET PO SCH (09:59)
[2019-05-16] MEDS: methylPREDNISolone 4 MG TABLET PO SCH ×2 (10:06→13:58)
--- NOTE | 2019-05-16 10:13 | DS ---
Physical Examination Vital Signs: Vital Signs Temperature 98.2 F 05/16/19 08:39 Pulse Rate 53 L 05/16/19 08:39 Respiratory Rate 18 05/16/19 08:39 Blood Pressure 137/70 05/16/19 08:39 O2 Sat by Pulse Oximetry (%) 96 05/15/19 23:38 Cardiovascular: Yes: S1, S2 Respiratory: Yes: Regular, CTA Bilaterally Gastrointestinal: Yes: Normal Bowel Sounds, Soft Labs: CBC, BMP 05/15/19 06:55 05/15/19 06:55 Discharge Summary Problems reviewed: Yes Reason For Visit: NECK PAIN, CEREBROVASCULAR ACCIDENT (CVA) Current Active Problems Asthma (Acute) Ataxia (Acute) CAD (coronary artery disease) (Acute) CVA (cerebral vascular accident) (Acute) Headache (Acute) Neck pain (Acute) Severe obesity (BMI 35.0-35.9 with comorbidity) (Acute) Hospital Course: - Problems (1) Neck pain Assessment/Plan: mayb due to disc ds ct head nad CTA NECK DISC DS--IMPROVED WITH DECADRON neuro noted Code(s): M54.2 - CERVICALGIA (2) Headache Assessment/Plan: no sig acute path on ct maybe muscular decadron Code(s): R51 - HEADACHE Qualifiers: Headache type: unspecified Headache chronicity pattern: unspecified pattern Intractability: not intractable Qualified Code(s): R51 - Headache (3) CAD (coronary artery disease) Code(s): I25.10 - ATHSCL HEART DISEASE OF [place] CORONARY ARTERY W/O ANG PCTRS (4) Atrial fibrillation Assessment/Plan: continue with Cardio follow up as outpatient Code(s): I48.91 - UNSPECIFIED ATRIAL FIBRILLATION Condition: Stable - Instructions Referrals: Delio Cruz MD [Primary Care Provider] - 1 Week Disposition: HOME - Home Medications Comprehensive Discharge Medication List: Ambulatory Orders Metoprolol Succinate [Toprol XL -] 50 mg PO HS 05/21/11 Olmesartan/Amlodipin/Hcthiazid [Tribenzor 40-5-25 mg Tablet] 1 each PO DAILY Apixaban [Eliquis] 5 mg PO BID 10/06/18 Dronedarone HCl [Multaq -] 400 mg PO BID 10/06/18 Meclizine HCl [Antivert -] 12.5 mg PO PRN PRN 10/06/18 Pravastatin Sodium 10 mg PO HS 10/06/18 Cyclobenzaprine HCl 5 mg PO BID #14 tablet 05/16/19 Methylprednisolone [Medrol -] 4 mg PO QID #30 tablet 05/16/19
--- NOTE | 2019-05-16 10:36 | PN ---
Progress Note (short form) - Note Progress Note: Neurology PCP: Delio Cruz Chief Complaint: R- Neck, Occipital Pain History of Present Illness: This is a 73 y/o woman with a PMHx of HTN, HLD, pAfib (on Eliquis, Multaq), Non Obstructing CAD, Asthma, Pneumonia, Thyroid Nodules. Presented to the Ed with worsening right sided neck and occipital pain x 1 day prior to admission. Patient reports having a sudden sharp pain to her neck which radiates to her head, right shoulder and down her right arm. Patient reports 4 days prior to admission, she had blurred vision lasting a few seconds until it returned to baseline. She then reports noting on Friday and Friday that her gait was "off"- then returning to baseline. The patient denies having parasthesias, slurred speech, or facial droop. Patient denies fever, chills, cough, SOB, CP, palpitations, AP, N/V/D, constipation, dysuria. Head CT completed, results pending. Neck CTA completed, results pending. Discussed with nurse nd asked him to contact radiology department to have official read f images. Patient in good spirit and states she's feeling better. Still with some neck discomfort. Has been put on low dose Medrol 4mg. Cyclobenzaprine 5mg BID started. Possibly for discharge today. Active Medications Acetaminophen (Tylenol -) 650 mg PO Q6H PRN PRN Reason: PAIN LEVEL 6-10 Albuterol Sulfate (Ventolin Hfa Inhaler -) 2 puff IH Q4H PRN PRN Reason: SHORT OF BREATH/WHEEZING Apixaban (Eliquis -) 5 mg PO BID [facility] Last Admin: 05/16/19 09:59 Dose: 5 mg Atorvastatin Calcium (Lipitor -) 10 mg PO HS [facility] Last Admin: 05/15/19 22:31 Dose: 10 mg Cyclobenzaprine HCl (Cyclobenzaprine Hcl) 5 mg PO BID [facility] Last Admin: 05/16/19 09:59 Dose: 5 mg Dronedarone (Multaq -) 400 mg PO BIDWM [facility] Last Admin: 05/16/19 09:15 Dose: Not Given Dextrose/Sodium Chloride (D5-1/2ns -) 1,000 mls @ 60 mls/hr IV ASDIR [facility] Last Admin: 05/16/19 07:18 Dose: Not Given Methylprednisolone (Medrol -) 4 mg PO QID [facility] Last Admin: 05/16/19 10:06 Dose: 4 mg Pantoprazole Sodium (Protonix -) 40 mg PO DAILY [facility] Last Admin: 05/16/19 09:59 Dose: 40 mg Physical Examination Vital Signs: Vital Signs Period Temp Pulse Resp BP Sys/Quevedo Pulse Ox Last 24 Hr 97.3 F-98.2 F 47-59 18-18 137-146/70-84 96-99 Constitutional: Yes: Well Nourished, No Distress, Calm Eyes: Yes: WNL, Conjunctiva Clear, EOM Intact, PERRL HENT: Yes: WNL, Atraumatic, Normocephalic Neck: Yes: Supple, Trachea Midline, Tenderness (right anterior aspect- TTP) Cardiovascular: Yes: WNL, Regular Rate and Rhythm, S1, S2 Respiratory: Yes: WNL, Regular, CTA Bilaterally Gastrointestinal: Yes: WNL, Normal Bowel Sounds, Soft, Abdomen, Obese ...Rectal Exam: Yes: Deferred Renal/: Yes: WNL Breast(s): Yes: WNL Musculoskeletal: Yes: WNL Extremities: Yes: WNL Edema: No Peripheral Pulses WNL: Yes Integumentary: Yes: WNL Neurological: Yes: WNL, Alert, Oriented, Cran Nerves II-XII Intact, moves all extremities equally, sensory intact to LT Psychiatric: Yes: WNL, Alert, Oriented Labs: CBCD WBC 7.7 K/mm3 (4.0-10.0) 05/15/19 06:55 RBC 3.55 M/mm3 (3.60-5.2) L 05/15/19 06:55 Hgb 11.2 GM/dL (10.7-15.3) 05/15/19 06:55 Hct 33.8 % (32.4-45.2) 05/15/19 06:55 MCV 95.2 fl (80-96) 05/15/19 06:55 MCHC 33.2 g/dl (32.0-36.0) 05/15/19 06:55 RDW 12.8 % (11.6-15.6) 05/15/19 06:55 Plt Count 246 K/MM3 (134-434) 05/15/19 06:55 MPV 10.0 fl (7.5-11.1) 05/15/19 06:55 CMP Sodium 142 mmol/L (136-145) 05/15/19 06:55 Potassium 3.7 mmol/L (3.5-5.1) 05/15/19 06:55 Chloride 111 mmol/L (98-107) H 05/15/19 06:55 Carbon Dioxide 27 mmol/L (21-32) 05/15/19 06:55 Anion Gap 5 MMOL/L (8-16) L 05/15/19 06:55 BUN 31.5 mg/dL (7-18) H 05/15/19 06:55 Creatinine 1.3 mg/dL (0.55-1.3) 05/15/19 06:55 Random Glucose 90 mg/dL (74-106) 05/15/19 06:55 Calcium 8.8 mg/dL (8.5-10.1) 05/15/19 06:55 Total Bilirubin 0.6 mg/dL (0.2-1) 05/14/19 22:58 AST 13 U/L (15-37) L 05/14/19 22:58 ALT 14 U/L (13-61) 05/14/19 22:58 Alkaline Phosphatase 92 U/L (45-117) 05/14/19 22:58 Total Protein 7.6 g/dl (6.4-8.2) 05/14/19 22:58 Albumin 3.6 g/dl (3.4-5.0) 05/14/19 22:58 CARDIAC ENZYMES Creatine Kinase 64 U/L (26-192) 05/14/19 22:58 Troponin I < 0.02 ng/ml (0.00-0.05) 05/14/19 22:58 ASSESSMENT/PLAN This is a 73 y/o woman with a PMHx of HTN, HLD, pAfib (on Eliquis, Multaq), Non Obstructing CAD, Asthma, Pneumonia, Thyroid Nodules. Presented to the Ed with worsening right sided neck and occipital pain x 1 day prior to admission. Patient reports having a sudden sharp pain to her neck which radiates to her head, right shoulder and down her right arm. Patient reports 4 days prior to admission, she had blurred vision lasting a few seconds until it returned to baseline. She then reports noting on Friday and Friday that her gait was "off"- then returning to baseline. The patient denies having parasthesias, slurred speech, or facial droop. Patient denies fever, chills, cough, SOB, CP, palpitations, AP, N/V/D, constipation, dysuria. Head CT completed, results pending. Neck CTA completed, results pending. Discussed with nurse perez asked him to contact radiology department to have official read f images. Patient in good spirit and states she's feeling better. Still with some neck discomfort. Has been put on low dose Medrol 4mg. Cyclobenzaprine 5mg BID started. Possibly for discharge today. Avoid significant strain of C spine. Conservative mgmt for now.
[2019-05-16 14:26] VITALS: BP 126/57; PULSE 60; TEMP 98.3
== END 2019-05-16 15:44 | disposition home or self-care (01) | DRG 552 ==
LOC: JERFT 21:22 → JERBED 05-15 01:56 → J4S 05-15 21:20
PROVIDERS: ADMIT Internal Medicine; ATTEND Family Medicine
DX: M54.2 Cervicalgia (principal); R27.0 Ataxia, unspecified; R51 Headache; I25.10 Atherosclerotic heart disease of native coronary artery without angina pectoris; J45.909 Unspecified asthma, uncomplicated; I48.91 Unspecified atrial fibrillation; E66.01 Morbid (severe) obesity due to excess calories; Z68.39 Body mass index [BMI] 39.0-39.9, adult; E78.5 Hyperlipidemia, unspecified; I12.9 Hypertensive chronic kidney disease with stage 1 through stage 4 chronic kidney disease, or unspecified chronic kidney disease; N18.9 Chronic kidney disease, unspecified
CPT/HCPCS: 36415; 70450-TC; 70498-TC; 80048; 80053; 80061; 81003; 82550; 82962; 83721; 83735; 84100; 84443; 84484; 85025; 85610; 85730; 86850; 86900; 86901; 87086; 93005; 93010; 99285-25; Q9967

== ENCOUNTER 2019-05-22 23:02 | Inpatient (IN) | payer OTHER ==
[2019-05-22 23:17] VITALS: BMI 39.1
--- NOTE | 2019-05-23 00:31 | PDOC ---
*Physical Exam - Vital Signs Last Vital Signs Temp Pulse Resp BP Pulse Ox 97.9 F 101 H 20 135/83 98 05/22/19 23:15 05/22/19 23:15 05/22/19 23:15 05/22/19 23:15 05/22/19 23:15 Medical Decision Making - Medical Decision Making 05/23/19 00:30 Patient seen by the advanced practice provider under my supervision. Ancillary testing reviewed as necessary. I agree with plan as outlined by the advanced practice provider. Discharge - Follow up/Referral Referrals: Delio Cruz MD [Primary Care Provider] - - Patient Discharge Instructions - Post Discharge Activity
[2019-05-23 01:31] LABS: BASO % 0.6 % (0-2.0); EOS % 1.4 % (0-4.5); HEMATOCRIT 39.6 % (32.4-45.2); HEMOGLOBIN 13.1 GM/dL (10.7-15.3); LYMPH % 13.4 % (8-40); MCH 31.8 pg (25.7-33.7); MEAN CELL VOLUME 96.4 fl (80-96); MEAN PLT VOLUME 11.2 fl (7.5-11.1); MONO % 7.8 % (3.8-10.2); NEUT % 76.8 % (42.8-82.8); PLATELET COUNT 292 K/MM3 (134-434); RBC 4.11 M/mm3 (3.60-5.2); RDW 13.2 % (11.6-15.6); WHITE BLOOD COUNT 12.9 K/mm3 (4.0-10.0)
--- NOTE | 2019-05-23 01:33 | PDOC ---
History of Present Illness - General Chief Complaint: Revisit,Radiology Variance Stated Complaint: MRI Time Seen by Provider: 05/23/19 00:20 History Source: Patient Exam Limitations: No Limitations Past History - Past Medical History Allergies/Adverse Reactions: Allergies Allergy/AdvReac Type Severity Reaction Status Date / Time No Known Allergies Allergy Verified 05/22/19 23:15 Home Medications: Ambulatory Orders Metoprolol Succinate [Toprol XL -] 50 mg PO HS 05/21/11 Olmesartan/Amlodipin/Hcthiazid [Tribenzor 40-5-25 mg Tablet] 1 each PO DAILY Apixaban [Eliquis] 5 mg PO BID 10/06/18 Dronedarone HCl [Multaq -] 400 mg PO BID 10/06/18 Meclizine HCl [Antivert -] 12.5 mg PO PRN PRN 10/06/18 Pravastatin Sodium 10 mg PO HS 10/06/18 Cyclobenzaprine HCl 5 mg PO BID #14 tablet 05/16/19 Methylprednisolone [Medrol -] 4 mg PO QID #30 tablet 05/16/19 Anemia: Yes Asthma: (HX PNEUMOPNIA) Cardiac Disorders: Yes (AFIB) COPD: No HTN: Yes Hypercholesterolemia: Yes Thyroid Disease: Yes (found nodules bilaterally) - Surgical History Orthopedic Surgery: Yes (TKR RIGHT) - Immunization History Immunization Up to Date: Yes (no flu vaccine) - Psycho Social/Smoking Cessation Hx Smoking Status: No Smoking History: Never smoked Have you smoked in the past 12 months: No Number of Cigarettes Smoked Daily: 0 Information on smoking cessation initiated: No Hx Alcohol Use: No Drug/Substance Use Hx: No Substance Use Type: None Hx Substance Use Treatment: No *Physical Exam - Vital Signs Last Vital Signs Temp Pulse Resp BP Pulse Ox 97.9 F 101 H 20 135/83 98 05/22/19 23:15 05/22/19 23:15 05/22/19 23:15 05/22/19 23:15 05/22/19 23:15 - Physical Exam General Appearance: No: Apparent Distress HEENT: positive: ROBBIE, Other (+B/L exophthalamos) Respiratory/Chest: positive: Lungs Clear, Normal Breath Sounds. negative: Respiratory Distress Cardiovascular: positive: Regular Rhythm, Regular Rate, S1, S2. negative: Murmur Gastrointestinal/Abdominal: positive: Normal Bowel Sounds, Soft. negative: Tender, Distended, Guarding, Rebound Neurologic: positive: fire safety inspector II-XII NML intact, Fully Oriented, Alert, Normal Mood/ Affect, Motor Strength 5/5, Finger to Nose (normal), Other (able to ambulate but at times, feels she may fall; has slow gait) ED Treatment Course - LABORATORY CBC & Chemistry Diagram: 05/23/19 00:45 05/23/19 00:45 - RADIOLOGY Radiology Studies Ordered: Category Date Time Status BRAIN MRI W/O CONTRAST [MRI] Stat MRI 05/23/19 00:42 Ordered Medical Decision Making - Medical Decision Making 73 y/o F hx HTN, HLD, pAfib (on Eliquis, Multaq), non Obstructing CAD, goiter s/ p removal several years ago presents for MRI of brain. Patient was recently discharged from hospital last week for neck pain which was diagnosed as cervical radiculopathy. Patient had head CT and CTA neck done; was discharged on Flexeril and Medrol. Patient mentions she had accidentally taken too many pills of the Medrol initially, which was later corrected. Mentions she was having unsteady gait since 05/18 which was attributed to the Medrol and she stopped the Medrol 05/20. Was seen at [facility] yesterday and advised to get MRI of brain but states could not have it done there. Spoke to [employer]ER who works with Dr. Cruz who advised patient to come to ER for MRI of brain. Denies fever, sob, cp, abd pain, n/v, vision changes, numbness/tingling/ weakness of extremities. Head CT 05/15 negative CTA neck 05/15 showed plaque in Right common cartoid artery, with 45% narrowing of lumen Unable to get MRI at this time Will admit patient for MRI brain Of note, EKG was obtained which showed SVT at 131 Patient currently asymptomatic Medications reviewed - patient is due for her Metoprolol 50 mg XL and Multaq 400 mg D/W Dr. Blount - does not recommend IV meds at this time Patient signed out to Dr. Paige 05/23/19 01:32 Discharge - Discharge Information Problems reviewed: Yes Clinical Impression/Diagnosis: Unsteady gait Condition: Stable - Additional Discharge Information Prescription Drug Monitoring Program (I-STOP) results: I-STOP not reviewed - Follow up/Referral Referrals: Delio Cruz MD [Primary Care Provider] - - Patient Discharge Instructions - Post Discharge Activity
[2019-05-23] MEDS ORDERED: DRONEDARONE HCL 400 MG TAB (FP) PO ONE (01:45)
--- NOTE | 2019-05-23 01:50 | PDOC ---
*Physical Exam - Vital Signs Last Vital Signs Temp Pulse Resp BP Pulse Ox 97.9 F 101 H 20 135/83 98 05/22/19 23:15 05/22/19 23:15 05/22/19 23:15 05/22/19 23:15 05/22/19 23:15 ED Treatment Course - LABORATORY CBC & Chemistry Diagram: 05/23/19 00:45 05/23/19 00:45 - Medications Given in the ED: ED Medications Discontinued Medications Generic Name Dose Route Start Last Admin Trade Name Davie PRN Reason Stop Dose Admin Metoprolol Succinate 50 mg 05/23/19 01:38 05/23/19 01:39 Toprol Xl - PO 05/23/19 01:39 50 mg ONCE ONE Administration Medical Decision Making - Medical Decision Making 05/23/19 03:20 73F w/hx HTN, HLD, afib (on eliquis), CAD, recent evaluation at [facility] for unsteady gait presents for MRI brain, found to be tachycardic to 130s (asymptomatic) on arrival. EF 60-65% on 03/19/18. Plan: CBC CMP Cardiac profile EKG CXR MRI Brain Dispo: Admit cardiac obs --- CBC - WBC 12.9 CMP - Cr 1.6 (baseline) Troponin - negative --- Repeat HR - 76 05/23/19 04:37 Patient signed out/admitted to Dr. Marroquin. Discharge - Discharge Information Problems reviewed: Yes Clinical Impression/Diagnosis: Atrial flutter Qualifiers: Atrial flutter type: typical Qualified Code(s): I48.3 - Typical atrial flutter Condition: Stable - Admission Yes - Follow up/Referral Referrals: Delio Cruz MD [Primary Care Provider] - - Patient Discharge Instructions - Post Discharge Activity
--- NOTE | 2019-05-23 01:59 | PDOC ---
Attending Attestation - Resident Resident Name: Trevin Paige - ED Attending Attestation I have performed the following: I have examined & evaluated the patient, The case was reviewed & discussed with the resident, I agree w/resident's findings & plan - HPI HPI: 05/23/19 05:45 73F w/hx HTN, HLD, afib (on eliquis), CAD, recent evaluation at [facility] for unsteady gait presents for MRI brain, found to be tachycardic to 130s (asymptomatic) on arrival. EF 60-65% on 03/19/18. - Physicial Exam PE: 05/23/19 21:52 Agree with resident exam. We will treat her with her dose of metorpolol, as her HR is 130s which is not consistent with SVT. Pt is in NAD Afebrile - Medical Decision Making 05/23/19 21:53Pt worked up for admission for MRI.
[2019-05-23 02:02] LABS: ALBUMIN 3.5 g/dl (3.4-5.0); BILIRUBIN,TOTAL 0.9 mg/dL (0.2-1); BLOOD UREA NITROGEN 43.2 mg/dL (7-18); CALCIUM 9.3 mg/dL (8.5-10.1); CREATININE 1.6 mg/dL (0.55-1.3); POTASSIUM 3.6 mmol/L (3.5-5.1); TOT PROT 7.2 g/dl (6.4-8.2)
--- NOTE | 2019-05-23 04:09 | HP ---
CHIEF COMPLAINT: wants brain mri PCP: Anthony HISTORY OF PRESENT ILLNESS: 73 y/o woman came to hospital requesting brain MRI due to some history of unstable gait. Patient reports that she was seen in emergency room this past Friday for neck pain , Diagnosed with cervical radiculopathy, sent home on muscle relaxant and Medrol that she was taking 4 pills of 4 mg every 4 hours and the next day began to develop ataxia. Patient was seen in [place] [facility] and they recommended brain MRI to rule out CVA. She states that she has not taken any muscle relaxant. Patient came to the emergency room this time around requesting brain MRI to rule out stroke. She states that she is able to ambulate. Patient is able to provide a good history however appears drowsy. Incidentally was found to have SVT on EKG in the emergency room. ER course was notable for: (1) cxr (2) toprolol (3) Recent Travel: no PAST MEDICAL HISTORY:HTN, HLD, pAfib (on Eliquis), non Obstructing CAD, goiter s /p removal several years ago PAST SURGICAL HISTORY: goiter s/p removal Social History: Smoking: no Alcohol:no Drugs: no Allergies No Known Allergies Allergy (Verified 05/22/19 23:15) HOME MEDICATIONS: Home Medications Medication Instructions Recorded Metoprolol Succinate [Toprol XL -] 50 mg PO HS 05/21/11 Olmesartan/Amlodipin/Hcthiazid 1 each PO DAILY 08/12/14 [Tribenzor 40-5-25 mg Tablet] Apixaban [Eliquis] 5 mg PO BID 10/06/18 Dronedarone HCl [Multaq -] 400 mg PO BID 10/06/18 Meclizine HCl [Antivert -] 12.5 mg PO PRN PRN 10/06/18 Pravastatin Sodium 10 mg PO HS 10/06/18 Cyclobenzaprine HCl 5 mg PO BID #14 tablet 05/16/19 Methylprednisolone [Medrol -] 4 mg PO QID #30 tablet 05/16/19 REVIEW OF SYSTEMS CONSTITUTIONAL: Absent: fever, chills, diaphoresis, generalized weakness, malaise, loss of appetite, weight change HEENT: Absent: rhinorrhea, nasal congestion, throat pain, throat swelling, difficulty swallowing, mouth swelling, ear pain, eye pain, visual changes CARDIOVASCULAR: Absent: chest pain, syncope,, lightheadedness, peripheral edema present- palpitations, irregular heart rate RESPIRATORY: Absent: cough, shortness of breath, dyspnea with exertion, orthopnea, wheezing, stridor, hemoptysis GASTROINTESTINAL: Absent: abdominal pain, abdominal distension, nausea, vomiting, diarrhea, constipation, melena, hematochezia GENITOURINARY: Absent: dysuria, frequency, urgency, hesitancy, hematuria, flank pain, genital pain MUSCULOSKELETAL: Absent: myalgia, arthralgia, joint swelling, back pain, neck pain SKIN: Absent: rash, itching, pallor HEMATOLOGIC/IMMUNOLOGIC: Absent: easy bleeding, easy bruising, lymphadenopathy, frequent infections ENDOCRINE: Absent: unexplained weight gain, unexplained weight loss, heat intolerance, cold intolerance NEUROLOGIC: Absent: headache, focal weakness or paresthesias, dizziness, seizure, mental status changes, bladder or bowel incontinence present- unsteady gait, PSYCHIATRIC: Absent: anxiety, depression, suicidal or homicidal ideation, hallucinations. PHYSICAL EXAMINATION Vital Signs - 24 hr 05/22/19 05/23/19 23:15 03:14 Temperature 97.9 F 97.8 F Pulse Rate 101 H Pulse Rate [ 83 Both] Respiratory 20 18 Rate Blood Pressure 135/83 Blood Pressure 106/78 [Arm] O2 Sat by Pulse 98 98 Oximetry (%) GENERAL: Awake, alert, and fully oriented, Appears drowsy, morbidly obese HEAD: Normal with no signs of trauma. EYES: Pupils equal, round and reactive to light, extraocular movements intact, sclera anicteric, conjunctiva clear. No lid lag. EARS, NOSE, THROAT: Ears normal, nares patent, oropharynx clear without exudates. Moist mucous membranes. NECK: Normal range of motion, supple without lymphadenopathy, JVD, or masses. LUNGS: Breath sounds equal, clear to auscultation bilaterally. No wheezes, and no crackles. No accessory muscle use. HEART: Regular rate and rhythm, normal S1 and S2 without murmur, rub or gallop. ABDOMEN: Soft, nontender, not distended, normoactive bowel sounds, no guarding, no rebound, no masses. MUSCULOSKELETAL: Normal range of motion at all joints. No bony deformities or tenderness. No CVA tenderness. UPPER EXTREMITIES: 2+ pulses, warm, well-perfused. No cyanosis. No clubbing. No peripheral edema. LOWER EXTREMITIES: 2+ pulses, warm, well-perfused. No calf tenderness. No peripheral edema. NEUROLOGICAL: Cranial nerves II-XII intact. Normal speech. Normal gait. PSYCHIATRIC: Cooperative. Good eye contact. Appropriate mood and affect. SKIN: Warm, dry, normal turgor, no rashes or lesions noted, normal capillary refill. Laboratory Results - last 24 hr 05/23/19 05/23/19 00:45 00:45 WBC 12.9 H RBC 4.11 Hgb 13.1 Hct 39.6 D MCV 96.4 H MCH 31.8 MCHC 33.0 RDW 13.2 Plt Count 292 MPV 11.2 H D Absolute Neuts (auto) 9.9 H Neutrophils % 76.8 Lymphocytes % 13.4 D Monocytes % 7.8 Eosinophils % 1.4 Basophils % 0.6 Nucleated RBC % 0 Sodium 143 Potassium 3.6 Chloride 104 Carbon Dioxide 32 Anion Gap 7 L BUN 43.2 H Creatinine 1.6 H Est GFR (CKD-EPI)AfAm 36.16 Est GFR (CKD-EPI)NonAf 31.20 Random Glucose 105 Calcium 9.3 Total Bilirubin 0.9 AST 18 ALT 22 Alkaline Phosphatase 101 Troponin I 0.02 Total Protein 7.2 Albumin 3.5 EKG was obtained which showed SVT at 131 Chest x-ray reviewed ASSESSMENT/PLAN: Ataxiasuspect likely secondary to overdose on Medrol. Patient requesting brain MRI to rule out CVA. SVT/A. fibnow rate controlled Cervical radiculopathy Hypertension Hyperlipidemia History of CAD Observationtelemetry Brain MRI Check orthostatics Cardiology evaluation For SVT Continue home dose Toprol Continue Tribenzor Continue apixaban Continue Pravastatin Continue meclizine Continue pravastatin Hold Medrol as this may be contributing to patient's ataxia Avoid sedatives including muscle relaxer since and opiates ApixabanDVT prophylaxis Visit type - Emergency Visit Emergency Visit: Yes ED Registration Date: 05/23/19 Care time: The patient presented to the Emergency Department on the above date and was hospitalized for further evaluation of their emergent condition. - New Patient This patient is new to me today: Yes Date on this admission: 05/23/19 - Critical Care Critical Care patient: No
[2019-05-23] MEDS ORDERED: MECLIZINE HCL 12.5 MG TABLET PO PRN (04:45)
[2019-05-23 08:49] LABS: HEMATOCRIT 37.5 % (32.4-45.2); HEMOGLOBIN 12.3 GM/dL (10.7-15.3); MCH 31.4 pg (25.7-33.7); MCHC 32.9 g/dl (32.0-36.0); MEAN CELL VOLUME 95.5 fl (80-96); MEAN PLT VOLUME 10.4 fl (7.5-11.1); PLATELET COUNT 263 K/MM3 (134-434); RBC 3.93 M/mm3 (3.60-5.2); RDW 13.2 % (11.6-15.6); WHITE BLOOD COUNT 11.3 K/mm3 (4.0-10.0)
[2019-05-23 09:21] LABS: BLOOD UREA NITROGEN 44.8 mg/dL (7-18); CALCIUM 9.5 mg/dL (8.5-10.1); CREATININE 1.7 mg/dL (0.55-1.3); MAGNESIUM 2.5 mg/dL (1.8-2.4); POTASSIUM 3.7 mmol/L (3.5-5.1)
[2019-05-23] MEDS: APIXABAN 5 MG TABLET PO SCH ×2 (09:57→22:49)
[2019-05-23] MEDS ORDERED: HCTHIAZID PO SCH (10:00)
[2019-05-23] MEDS ORDERED: [UNRECOGNIZED DRUG - OTHER] PO SCH (10:00)
[2019-05-23] MEDS ORDERED: AMLODIPIN PO SCH (10:00)
[2019-05-23] MEDS ORDERED: OLMESARTAN PO SCH (10:00)
[2019-05-23] MEDS: VALSARTAN 160 MG TABLET (UD) PO SCH (11:22)
[2019-05-23] MEDS: DRONEDARONE HCL 400 MG TAB (FP) PO SCH ×2 (11:23→22:49)
[2019-05-23] MEDS: HYDROCHLOROTHIAZIDE 25 MG TABLET (FP) PO SCH (11:23)
[2019-05-23] MEDS: amLODIPine BESYLATE 5 MG TABLET (FP) PO SCH (11:24)
--- NOTE | 2019-05-23 11:45 | CON.CARD ---
Consult - History of Present Illness History of Present Illness: 73 y/o woman with unstable gait and ho Afib on Eliquis. noted to have asymptomatic tachycardia with HR 130. Diagnosed with cervical radiculopathy, - Past Medical History Cardio/Vascular: Yes: AFIB (paroxysmal afib diagnosed 03/08/16 (on Pradaxa)), CAD (Non-obstructive CAD per 03/12/11 cardiac cath), HTN, Hyperlipdemia Rheumatology: Yes: Gout - Past Surgical History Past Surgical History: Yes: None - Alcohol/Substance Use Hx Alcohol Use: No History of Substance Use: reports: None - Smoking History Smoking history: Never smoked Have you smoked in the past 12 months: No Aproximately how many cigarettes per day: 0 - Social History ADL: Independent Occupation: Retired History of Recent Travel: No Home Medications - Allergies Allergies/Adverse Reactions: Allergies Allergy/AdvReac Type Severity Reaction Status Date / Time No Known Allergies Allergy Verified 05/22/19 23:15 - Home Medications Home Medications: Ambulatory Orders Metoprolol Succinate [Toprol XL -] 50 mg PO HS 05/21/11 Olmesartan/Amlodipin/Hcthiazid [Tribenzor 40-5-25 mg Tablet] 1 each PO DAILY Apixaban [Eliquis] 5 mg PO BID 10/06/18 Dronedarone HCl [Multaq -] 400 mg PO BID 10/06/18 Meclizine HCl [Antivert -] 12.5 mg PO PRN PRN 10/06/18 Pravastatin Sodium 10 mg PO HS 10/06/18 Cyclobenzaprine HCl 5 mg PO BID #14 tablet 05/16/19 Methylprednisolone [Medrol -] 4 mg PO QID #30 tablet 05/16/19 Vital Signs: Vital Signs Temperature 97.8 F 05/23/19 07:04 Pulse Rate 49 L 05/23/19 11:05 Respiratory Rate 18 05/23/19 11:05 Blood Pressure 97/62 05/23/19 11:05 O2 Sat by Pulse Oximetry (%) 93 L 05/23/19 11:05 - Other Data Labs, Other Data: CBC, BMP 05/23/19 08:30 05/23/19 08:30 Troponin, BNP 05/23/19 05/23/19 00:45 08:30 Troponin I 0.02 0.03 Troponin, BNP 05/23/19 05/23/19 00:45 08:30 Troponin I 0.02 0.03
--- NOTE | 2019-05-23 13:24 | PN ---
Progress Note, Physician Chief Complaint: A Flutter Ataxia History of Present Illness: Previous notes and events reviewed awake and alert NAD complains of unsteady gait when ambulating sts having dizziness with movement denies chest pain or SOB - Current Medication List Current Medications: Active Medications Amlodipine Besylate (Norvasc -) 5 mg PO DAILY [facility] Last Admin: 05/23/19 11:24 Dose: Not Given Apixaban (Eliquis -) 5 mg PO BID [facility] Last Admin: 05/23/19 09:57 Dose: 5 mg Atorvastatin Calcium (Lipitor -) 10 mg PO [facility] Dronedarone (Multaq -) 400 mg PO BID [facility] Last Admin: 05/23/19 11:23 Dose: Not Given Hydrochlorothiazide (Hctz -) 25 mg PO DAILY [facility] Last Admin: 05/23/19 11:23 Dose: Not Given Meclizine HCl (Antivert -) 12.5 mg PO PRN PRN PRN Reason: VERTIGO Metoprolol Succinate (Toprol Xl -) 50 mg PO [facility] Valsartan (Diovan -) 320 mg PO DAILY [facility] Last Admin: 05/23/19 11:22 Dose: Not Given - Objective Vital Signs: Vital Signs Temperature 97.8 F 05/23/19 07:04 Pulse Rate 49 L 05/23/19 11:05 Respiratory Rate 18 05/23/19 11:05 Blood Pressure 97/62 05/23/19 11:05 O2 Sat by Pulse Oximetry (%) 93 L 05/23/19 11:05 Constitutional: Yes: No Distress, Calm Eyes: Yes: Conjunctiva Clear HENT: Yes: Atraumatic Neck: Yes: Supple Cardiovascular: Yes: Pulse Irregular Respiratory: Yes: Regular, CTA Bilaterally Gastrointestinal: Yes: Normal Bowel Sounds, Soft Musculoskeletal: Yes: WNL Extremities: Yes: WNL Edema: No Neurological: Yes: Alert, Oriented Psychiatric: Yes: Alert, Oriented Labs: CBC, BMP 05/23/19 08:30 05/23/19 08:30 Problem List - Problems (1) Atrial flutter Assessment/Plan: Cardiology consult Tele monitoring Apaxiban Multaq Code(s): I48.92 - UNSPECIFIED ATRIAL FLUTTER Qualifiers: Atrial flutter type: typical Qualified Code(s): I48.3 - Typical atrial flutter (2) Asthma Assessment/Plan: keep SpO2 >90% O2 via NC prn for sob bronchodilators Code(s): J45.909 - UNSPECIFIED ASTHMA, UNCOMPLICATED (3) Ataxia Assessment/Plan: Neurology consult fall precaution MRI of brain pending official read PT Code(s): R27.0 - ATAXIA, UNSPECIFIED (4) CAD (coronary artery disease) Assessment/Plan: Atorvastatin Code(s): I25.10 - ATHSCL HEART DISEASE OF [place] CORONARY ARTERY W/O ANG PCTRS (5) CVA (cerebral vascular accident) Assessment/Plan: Atorvastatin PT fall precaution pending official read of MRI brain lipid panel neurology and cardiology consult Code(s): I63.9 - CEREBRAL INFARCTION, UNSPECIFIED Qualifiers: CVA mechanism: unspecified Qualified Code(s): I63.9 - Cerebral infarction, unspecified (6) HTN (hypertension) Assessment/Plan: HCT, Valsartan. Metoprolol, AMlodipine low Na diet Code(s): I10 - ESSENTIAL (PRIMARY) HYPERTENSION (7) Vertigo Assessment/Plan: Meclizine Neurology consult pending MRI of brain Code(s): R42 - DIZZINESS AND GIDDINESS (8) Renal insufficiency Assessment/Plan: BUN/Cr 44.8/1.7 monitor renal function Code(s): N28.9 - DISORDER OF KIDNEY AND URETER, UNSPECIFIED Assessment/Plan see problem list dvt ppx
--- NOTE | 2019-05-23 14:37 | CON.CARD ---
Cardiology Consult (text) - Consultation Consultation Note: Patient is known to Dr. Perales. Please contact his group.
[2019-05-23] MEDS ORDERED: APIXABAN 5 MG TABLET ONE (22:17)
[2019-05-23] MEDS ORDERED: ATORVASTATIN CA 10 MG TABLET (FP) ONE (22:17)
[2019-05-23] MEDS: ATORVASTATIN CA 10 MG TABLET (FP) PO SCH (22:49)
[2019-05-24 07:41] LABS: HEMATOCRIT 37.9 % (32.4-45.2); HEMOGLOBIN 12.5 GM/dL (10.7-15.3); MCH 31.9 pg (25.7-33.7); MCHC 33.1 g/dl (32.0-36.0); MEAN CELL VOLUME 96.5 fl (80-96); MEAN PLT VOLUME 10.6 fl (7.5-11.1); PLATELET COUNT 269 K/MM3 (134-434); RBC 3.93 M/mm3 (3.60-5.2); WHITE BLOOD COUNT 9.7 K/mm3 (4.0-10.0)
[2019-05-24 08:20] LABS: ALBUMIN 3.5 g/dl (3.4-5.0); BILIRUBIN,TOTAL 1.5 mg/dL (0.2-1); BLOOD UREA NITROGEN 41.2 mg/dL (7-18); CALCIUM 9.3 mg/dL (8.5-10.1); CREATININE 1.7 mg/dL (0.55-1.3); POTASSIUM 3.5 mmol/L (3.5-5.1); TOT PROT 7.2 g/dl (6.4-8.2)
--- NOTE | 2019-05-24 09:10 | CON.CARD ---
Consult Consult Specialty:: Cardiology Referred by:: ROBINSON Matta Reason for Consultation:: Paroxysmal afib, diastolic dysfunction - History of Present Illness Chief Complaint: Ataxia History of Present Illness: 70 yo female with paroxysmal atrial fibrillation (on Eliquis), HTN, nonobstructive CAD with negative MPI for ischemia 03/13/2018, diastolic dysfunction, CKD last seen in office 05/05/2019 presented with unstable gait, dizziness with movement, requesting brain MRI to r/o stroke. Incidentally was found to have rapid afib on EKG with spontaneous conversion back to SR in the emergency room. She denies chest pain, dyspnea, near or true syncope, palpitations, orthopnea, PND or LE edema. - History Source History Provided By: Patient Limitations to Obtaining History: No Limitations - Past Medical History Cardio/Vascular: Yes: AFIB (paroxysmal afib diagnosed 03/08/16 (on Pradaxa)), CAD (Non-obstructive CAD per 03/12/11 cardiac cath), HTN, Hyperlipdemia Rheumatology: Yes: Gout - Past Surgical History Past Surgical History: Yes: None - Alcohol/Substance Use Hx Alcohol Use: No History of Substance Use: reports: None - Smoking History Smoking history: Never smoked Have you smoked in the past 12 months: No Aproximately how many cigarettes per day: 0 - Social History ADL: Independent Occupation: Retired History of Recent Travel: No Home Medications - Allergies Allergies/Adverse Reactions: Allergies Allergy/AdvReac Type Severity Reaction Status Date / Time No Known Allergies Allergy Verified 05/22/19 23:15 - Home Medications Home Medications: Ambulatory Orders Metoprolol Succinate [Toprol XL -] 50 mg PO HS 05/21/11 Olmesartan/Amlodipin/Hcthiazid [Tribenzor 40-5-25 mg Tablet] 1 each PO DAILY Apixaban [Eliquis] 5 mg PO BID 10/06/18 Dronedarone HCl [Multaq -] 400 mg PO BID 10/06/18 Meclizine HCl [Antivert -] 12.5 mg PO PRN PRN 10/06/18 Pravastatin Sodium 10 mg PO HS 10/06/18 Cyclobenzaprine HCl 5 mg PO BID #14 tablet 05/16/19 Methylprednisolone [Medrol -] 4 mg PO QID #30 tablet 02/16/20 Review of Systems - Review of Systems Neurological: reports: Dizziness, Unsteady Gait Vital Signs: Vital Signs Temperature 97.3 F L 05/24/19 07:22 Pulse Rate 50 L 05/24/19 07:22 Respiratory Rate 18 05/24/19 07:22 Blood Pressure 98/63 05/24/19 07:22 O2 Sat by Pulse Oximetry (%) 98 05/23/19 20:29 Constitutional: Yes: No Distress, Calm Neck: Yes: Supple Respiratory: Yes: Regular, CTA Bilaterally Gastrointestinal: Yes: Normal Bowel Sounds, Soft, Abdomen, Obese Cardiovascular: Yes: Regular Rate and Rhythm JVD: No Carotid Bruit: No Heart Sounds: Yes: S1, S2 Murmur: Yes: Systolic Murmur, Grade 1 Edema: Yes Edema: LLE: Trace, RLE: Trace - Other Data Labs, Other Data: CBC, BMP 05/24/19 06:10 05/24/19 06:10 Troponin, BNP 05/23/19 08:30 Troponin I 0.03 Troponin, BNP 05/23/19 08:30 Troponin I 0.03 Afib @ 131 -> NSR Ejection Fraction %: LVEF > or = 40 % Imaging - Results Chest X-ray: Report Reviewed (NAD) MRI: Report Reviewed (No acute stroke or bleed, bilateral thalamic microhemorrhages 2/2 to HTN encephelopathy, SIVID cerebral white matter and irene ) Problem List - Problems (1) Diastolic dysfunction without heart failure Code(s): I51.89 - OTHER ILL-DEFINED HEART DISEASES (2) Hypertensive heart disease Code(s): I11.9 - HYPERTENSIVE HEART DISEASE WITHOUT HEART FAILURE Qualifiers: Heart failure presence: without heart failure Qualified Code(s): I11.9 - Hypertensive heart disease without heart failure (3) Hyperlipidemia Code(s): E78.5 - HYPERLIPIDEMIA, UNSPECIFIED Qualifiers: Hyperlipidemia type: pure hypercholesterolemia Qualified Code(s): E78.00 - Pure hypercholesterolemia, unspecified; E78.0 - Pure hypercholesterolemia (4) Hypertensive encephalopathy Code(s): I67.4 - HYPERTENSIVE ENCEPHALOPATHY (5) Chronic anticoagulation Code(s): Z79.01 - MCC (CURRENT) USE OF ANTICOAGULANTS (6) Ataxia Code(s): R27.0 - ATAXIA, UNSPECIFIED (7) Atrial fibrillation Code(s): I48.91 - UNSPECIFIED ATRIAL FIBRILLATION Qualifiers: Atrial fibrillation type: paroxysmal Qualified Code(s): I48.0 - Paroxysmal atrial fibrillation (8) CAD (coronary artery disease) Code(s): I25.10 - ATHSCL HEART DISEASE OF [place] CORONARY ARTERY W/O ANG PCTRS Qualifiers: Coronary Disease-Associated Artery/Lesion type: [place] artery [place] vs. transplanted heart: [place] heart Associated angina: without angina Qualified Code(s): I25.10 - Atherosclerotic heart disease of [place] coronary artery without angina pectoris (9) HTN (hypertension) Code(s): I10 - ESSENTIAL (PRIMARY) HYPERTENSION Qualifiers: Hypertension type: essential hypertension Qualified Code(s): I10 - Essential (primary) hypertension (10) Renal insufficiency Code(s): N28.9 - DISORDER OF KIDNEY AND URETER, UNSPECIFIED Assessment/Plan 11/11/2018 Echo: cLVH with normal LV systolic fxn, LVEF 56%, grade II diastolic dysfunction, normal RV size and fxn, mild-mod MR, mild TR September 16, 2018-September 29, 2018, SR, PAF, PVC 04/17/[address]: Cardiomegaly with prominent central pulmonary vasculature suggestive of pulm HTN, mild-mod chronic lung disease, coronary artery calcification 1. Paroxysmal atrial fibrillation with RVR -> NSR 2. Gait ataxia 3. Diastolic dysfunction 4. HTN heart disease 5. HTN encephelopathy ruled out acute stroke 6. Non-obstructive CAD 7. CKD 8. Cervical radiculopathy P: 1. Continue Toprol XL 50 qd, Tribenzor 40/5/25 qd, Eliquis 5 bid, Multaq 400 bid, Pravachol 10 qhs, colchicine 0.6 qd 2. PT, gait training 3. Thank you for consultative opportunity
--- NOTE | 2019-05-24 09:27 | EKG ---
Test Reason : Blood Pressure : / mmHG Vent. Rate : 055 BPM Atrial Rate : 055 BPM P-R Int : 208 ms QRS Dur : 112 ms QT Int : 486 ms P-R-T Axes : 066 -56 099 degrees QTc Int : 464 ms SINUS BRADYCARDIA WITH SINUS ARRHYTHMIA LEFT ANTERIOR FASCICULAR BLOCK ABNORMAL ECG WHEN COMPARED WITH ECG OF 23-MAY-2019 03:50, Arrhythmia has resolved Confirmed by Lalitha Brumfield ([id number]) on 05/24/2019 9:27:35 AM Referred By: Confirmed By:Lalitha Brumfield
--- NOTE | 2019-05-24 09:40 | PN ---
Progress Note, Physician - Current Medication List Current Medications: Active Medications Amlodipine Besylate (Norvasc -) 5 mg PO DAILY [facility] Last Admin: 05/23/19 11:24 Dose: Not Given Apixaban (Eliquis -) 5 mg PO BID [facility] Last Admin: 05/23/19 22:49 Dose: 5 mg Atorvastatin Calcium (Lipitor -) [address] [facility] Last Admin: 05/23/19 22:49 Dose: 10 mg Dronedarone (Multaq -) 400 mg PO BID [facility] Last Admin: 05/23/19 22:49 Dose: 400 mg Hydrochlorothiazide (Hctz -) 25 mg PO DAILY [facility] Last Admin: 05/23/19 11:23 Dose: Not Given Meclizine HCl (Antivert -) 12.5 mg PO PRN PRN PRN Reason: VERTIGO Metoprolol Succinate (Toprol Xl -) [address] [facility] Last Admin: 05/23/19 23:07 Dose: Not Given Valsartan (Diovan -) 320 mg PO DAILY [facility] Last Admin: 05/23/19 11:22 Dose: Not Given - Objective Vital Signs: Vital Signs Temperature 97.3 F L 05/24/19 07:22 Pulse Rate 50 L 05/24/19 07:22 Respiratory Rate 18 05/24/19 07:22 Blood Pressure 98/63 05/24/19 07:22 O2 Sat by Pulse Oximetry (%) 98 05/23/19 20:29 Labs: CBC, BMP 05/24/19 06:10 05/24/19 06:10 Assessment/Plan - Problems (1) Atrial flutter Assessment/Plan: Cardiology consult Tele monitoring Apaxiban Multaq Code(s): I48.92 - UNSPECIFIED ATRIAL FLUTTER Qualifiers: Atrial flutter type: typical Qualified Code(s): I48.3 - Typical atrial flutter (2) Asthma Assessment/Plan: keep SpO2 >90% O2 via [place] prn for sob bronchodilators Code(s): J45.909 - UNSPECIFIED ASTHMA, UNCOMPLICATED (3) Ataxia Assessment/Plan: Neurology consult fall precaution MRI of brain pending official read PT Code(s): R27.0 - ATAXIA, UNSPECIFIED (4) CAD (coronary artery disease) Assessment/Plan: Atorvastatin Code(s): I25.10 - ATHSCL HEART DISEASE OF [place] CORONARY ARTERY W/O ANG PCTRS (5) CVA (cerebral vascular accident) Assessment/Plan: mri no acute cva__chronic changes Atorvastatin PT fall precaution lipid panel neurology and cardiology consult Code(s): I63.9 - CEREBRAL INFARCTION, UNSPECIFIED Qualifiers: CVA mechanism: unspecified Qualified Code(s): I63.9 - Cerebral infarction, unspecified (6) HTN (hypertension) Assessment/Plan: HCT, Valsartan. Metoprolol, AMlodipine low Na diet Code(s): I10 - ESSENTIAL (PRIMARY) HYPERTENSION (7) Vertigo Assessment/Plan: Meclizine Neurology consult pending MRI of brain Code(s): R42 - DIZZINESS AND GIDDINESS (8) Renal insufficiency Assessment/Plan: BUN/Cr 44.8/1.7 monitor renal function Code(s): N28.9 - DISORDER OF KIDNEY AND URETER, UNSPECIFIED
--- NOTE | 2019-05-24 09:41 | EKG ---
Test Reason : Blood Pressure : / mmHG Vent. Rate : 107 BPM Atrial Rate : 119 BPM P-R Int : 000 ms QRS Dur : 104 ms QT Int : 376 ms P-R-T Axes : 000 -61 097 degrees QTc Int : 501 ms Atrial fibrillation, PVC LEFT ANTERIOR FASCICULAR BLOCK ABNORMAL QRS-T ANGLE, CONSIDER PRIMARY T WAVE ABNORMALITY ABNORMAL ECG WHEN COMPARED WITH ECG OF 23-MAY-2019 01:09, Atrial fibrillation now present Confirmed by Lalitha Brumfield ([id number]) on 05/24/2019 9:41:24 AM Referred By: Confirmed By:Lalitha Brumfield
--- NOTE | 2019-05-24 09:43 | EKG ---
Test Reason : Blood Pressure : / mmHG Vent. Rate : 131 BPM Atrial Rate : 100 BPM P-R Int : 000 ms QRS Dur : 102 ms QT Int : 334 ms P-R-T Axes : 000 -67 101 degrees QTc Int : 493 ms SUPRAVENTRICULAR TACHYCARDIA LEFT ANTERIOR FASCICULAR BLOCK ABNORMAL ECG WHEN COMPARED WITH ECG OF 14-MAY-2019 23:34, Significant changes have occured Confirmed by Lalitha Brumfield ([id number]) on 05/24/2019 9:43:43 AM Referred By: Confirmed By:Lalitha Brumfield
[2019-05-24] MEDS: amLODIPine BESYLATE 5 MG TABLET (FP) PO SCH (10:47)
[2019-05-24] MEDS: VALSARTAN 160 MG TABLET (UD) PO SCH ×2 (10:47→10:53)
[2019-05-24] MEDS: APIXABAN 5 MG TABLET PO SCH ×2 (10:47→22:18)
[2019-05-24] MEDS: HYDROCHLOROTHIAZIDE 25 MG TABLET (FP) PO SCH (10:48)
[2019-05-24] MEDS: DRONEDARONE HCL 400 MG TAB (FP) PO SCH ×2 (10:48→22:19)
[2019-05-24] MEDS ORDERED: COLCHICINE 0.6 MG CAP ONE (10:54)
[2019-05-24] MEDS: COLCHICINE 0.6 MG CAP PO SCH (10:55)
[2019-05-24] MEDS ORDERED: MECLIZINE HCL 12.5 MG TABLET PO PRN (18:37)
[2019-05-24] MEDS ORDERED: PT OWN MED DRAWER 7, Y5N ONE (21:13)
[2019-05-24] MEDS: ATORVASTATIN CA 10 MG TABLET (FP) PO SCH (22:18)
--- NOTE | 2019-05-25 07:38 | PN ---
Progress Note (short form) - Note Progress Note: Chief Complaint: Events noted, notes reviewed, denies any chest discomfort or dyspnea, continues to report gait instability, sinus rhythm is noted History of Present Illness: Seen and examined on telemetry. Events noted, notes reviewed, denies any chest discomfort or dyspnea, continues to report gait instability, sinus rhythm is noted Medications: Current Medications Amlodipine Besylate (Norvasc -) 5 mg PO DAILY [facility] Last Admin: 05/24/19 10:47 Dose: 5 mg Apixaban (Eliquis -) 5 mg PO BID [facility] Last Admin: 05/24/19 22:18 Dose: 5 mg Atorvastatin Calcium (Lipitor -) 10 mg PO [facility] Last Admin: 05/24/19 22:18 Dose: 10 mg Colchicine (Colcrys) 0.6 mg PO DAILY [facility] Last Admin: 05/24/19 10:55 Dose: 0.6 mg Dronedarone (Multaq -) 400 mg PO BID [facility] Last Admin: 05/24/19 22:19 Dose: 400 mg Hydrochlorothiazide (Hctz -) 25 mg PO DAILY [facility] Last Admin: 05/24/19 10:48 Dose: 25 mg Meclizine HCl (Antivert -) 12.5 mg PO Q6H PRN PRN Reason: VERTIGO Metoprolol Succinate (Toprol Xl -) 50 mg PO [facility] Last Admin: 05/24/19 22:18 Dose: 50 mg Valsartan (Diovan -) 320 mg PO DAILY [facility] Last Admin: 05/24/19 10:53 Dose: Not Given Review of Systems - Review of Systems Constitutional: denies: Chills, Fever Cardiovascular: As noted above Respiratory: denies: Cough or Sputum Production Gastrointestinal: denies: Nausea, Vomiting, Diarrhea, Constipation or Abdominal Pain Neurological: denies: Headaches Vital Signs: Last Vital Signs Temp Pulse Resp BP Pulse Ox 97.8 F 59 L 18 130/79 97 05/25/19 06:00 05/25/19 06:00 05/25/19 07:00 05/25/19 06:00 05/25/19 07:00 Intake & Output 05/22/19 05/23/19 05/24/19 05/25/19 23:59 23:59 23:59 23:59 Intake Total 865 200 Output Total 2 1 Balance 863 199 Weight 221 lb 221 lb Neck: Supple Negative JVD No Bruit Respiratory: Diminished breath sounds at the bases bilaterally Cardiovascular: S1 S2 Regular Rate and Rhythm Grade 2-3/6 SELENE Gastrointestinal: Soft Benign Normal Bowel Sounds Ext: Trace Edema Labs: CBC, BMP 05/24/19 06:10 05/24/19 06:10 Hepatic Panel Total Bilirubin 1.5 mg/dL (0.2-1) H 05/24/19 06:10 AST 14 U/L (15-37) L 05/24/19 06:10 ALT 18 U/L (13-61) 05/24/19 06:10 Alkaline Phosphatase 81 U/L (45-117) 05/24/19 06:10 Albumin 3.5 g/dl (3.4-5.0) 05/24/19 06:10 Assessment/Plan ASSESSMENT: 1. Paroxysmal atrial fibrillation with rapid ventricular response post spontaneous conversion to sinus rhythm/maintained sinus rhythm [id number] score of 5 on anticoagulation therapy with Eliquis/antiarrhythmic therapy with Multaq 2. Coronary artery disease non-obstructive coronary artery disease angina pectoris 3. Diastolic left ventricular dysfunction with clinical class 0 [place] Heart [employer] classification left ventricular failure 4. Hypertensive heart disease 5. Transient hypertensive encephelopathy ruled out acute stroke, Clinically resolved 6. Hypercholesterolemia 7. History of benign positional vertigo 8. Gait instability 9. CKD 10. Degenerative cervical disc disease with cervical radiculopathy PLAN: 1. Continue Toprol XL 2. Continue Tribenzor therapy/or equivalent medications 3. Continue Multaq 4. Continue anticoagulation therapy with Eliquis indefinitely unless it is absolutely contraindicated 5. Continue Pravachol therapy/or equivalent medications 6. Patient is stable from the cardiovascular point of view and discharge as per the primary team Shy Kelly M.D.
[2019-05-25] MEDS: APIXABAN 5 MG TABLET PO SCH ×2 (09:51→21:34)
[2019-05-25] MEDS: HYDROCHLOROTHIAZIDE 25 MG TABLET (FP) PO SCH (09:52)
[2019-05-25] MEDS: VALSARTAN 160 MG TABLET (UD) PO SCH (09:52)
[2019-05-25] MEDS: amLODIPine BESYLATE 5 MG TABLET (FP) PO SCH (09:52)
[2019-05-25] MEDS: DRONEDARONE HCL 400 MG TAB (FP) PO SCH ×2 (09:52→23:20)
[2019-05-25] MEDS: COLCHICINE 0.6 MG CAP PO SCH (09:52)
--- NOTE | 2019-05-25 12:27 | CONSULT ---
Consult Consult Specialty:: PM&R Dr Vela for Dr Tamayo - History of Present Illness Chief Complaint: imbalance History of Present Illness: This is a 73 year old woman with a medical history of pA fib on Eliquis, nonobstructing CAD, HTN, HLD, goiter s/p removal, who presented to the ED 2019 with unsteadiness since starting Medrol dose arielle and a muscle relaxant 05/14 (prescribed for R cervical radiculopathy). 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 Cardiology was consulted, who felt ataxia / dizziness was not cardiac in origin. Neurology consult is pending. She was seen by PT, and on 05/25/2019 she ambulated 100 feet Supervision with Rolling Walker then 100 feet Hand- Held Assist with Supervision. Physiatry is being consulted for further recommendations. - Past Medical History Cardio/Vascular: Yes: AFIB (paroxysmal afib diagnosed 03/08/16 (on Pradaxa)), CAD (Non-obstructive CAD per 03/12/11 cardiac cath), HTN, Hyperlipdemia Rheumatology: Yes: Gout - Past Surgical History Past Surgical History: Yes: None - Alcohol/Substance Use Hx Alcohol Use: No History of Substance Use: reports: None - Smoking History Smoking history: Never smoked Have you smoked in the past 12 months: No Aproximately how many cigarettes per day: 0 - Social History Usual Living Arrangement: Alone (in apartment with 3 steps to enter from garage) ADL: Independent (without AD but has RW and SC) Occupation: Retired History of Recent Travel: No Home Medications - Allergies Allergies/Adverse Reactions: Allergies Allergy/AdvReac Type Severity Reaction Status Date / Time No Known Allergies Allergy Verified 05/22/19 23:15 - Home Medications Home Medications: Ambulatory Orders Metoprolol Succinate [Toprol XL -] 50 mg PO HS 05/21/11 Olmesartan/Amlodipin/Hcthiazid [Tribenzor 40-5-25 mg Tablet] 1 each PO DAILY Apixaban [Eliquis] 5 mg PO BID 10/06/18 Dronedarone HCl [Multaq -] 400 mg PO BID 10/06/18 Meclizine HCl [Antivert -] 12.5 mg PO PRN PRN 10/06/18 Pravastatin Sodium 10 mg PO HS 10/06/18 Cyclobenzaprine HCl 5 mg PO BID #14 tablet 05/16/19 Methylprednisolone [Medrol -] 4 mg PO QID #30 tablet 05/16/19 Review of Systems Findings/Remarks: denies fevers, chills, changes in hearing/ mood, CP, SOB, abdominal pain, nausea , vomiting, constipation, diarrhea, dysuria, numbness/ paresthesias. Note light sensitivity since ataxia started, and R neck pain now much better ("sore") without other muscle/ joint pain Physical Exam Vital Signs: Vital Signs Temperature 98.3 F 05/25/19 08:12 Pulse Rate 58 L 05/25/19 08:12 Respiratory Rate 18 05/25/19 08:12 Blood Pressure 126/78 05/25/19 08:12 O2 Sat by Pulse Oximetry (%) 97 05/25/19 07:00 Musculoskeletal: Yes: Other (calm elderly AAF sitting in chair NAD, AAO x3; able to Sit--> Stand independently, ambulated in room with wide- based short stride gait, reaching for bed/ sink for support; negative Romberg; full BUE ROM , 5/5 BLE/ BLE, Pinprick Intact BUE/ BLE; +cervical pain in flexion not extension) Labs: CBC, BMP 05/24/19 06:10 05/24/19 06:10 Imaging - Results MRI: Report Reviewed (as per HPI) Assessment/Plan Impression: 1) Deficits mobility/ ADLs 2) Deconditioning 3) Gait abnormality 4) Ataxia/ imbalance 5) MRI shows chronic B thalamic and possible R gangliocapsular petechial microhemorrhages 6) Upper cervical radiculopathy, much improved 7) hx pA fib on Eliquis, nonobstructing CAD, HTN, HLD 8) hx goiter s/p removal 9) Obesity 10) Up to date flu shot/ pneumovax Recommendations: 1) PT for functional mobility/ balance 2) Falls, safety precautions 3) Cardiac precautions 4) Heat cervical spine prn 5) DVT ppx: on Eliquis 6) Bowel regimen prn 7) Monitor BMP given renal function 8) Nutrition consult for obesity 9) Pending Neuro consult 10) Continue plan per primary team 11) Discharge planning: she will likely be able to return home with home vs outpatient services once medically stable Thank you for this referral.
--- NOTE | 2019-05-25 14:39 | PN ---
Progress Note, Physician - Current Medication List Current Medications: Active Medications Amlodipine Besylate (Norvasc -) 5 mg PO DAILY [facility] Last Admin: 05/25/19 09:52 Dose: 5 mg Apixaban (Eliquis -) 5 mg PO BID [facility] Last Admin: 05/25/19 09:51 Dose: 5 mg Atorvastatin Calcium (Lipitor -) 10 mg PO [facility] Last Admin: 05/24/19 22:18 Dose: 10 mg Colchicine (Colcrys) 0.6 mg PO DAILY [facility] Last Admin: 05/25/19 09:52 Dose: Not Given Dronedarone (Multaq -) 400 mg PO BID [facility] Last Admin: 05/25/19 09:52 Dose: 400 mg Hydrochlorothiazide (Hctz -) 25 mg PO DAILY [facility] Last Admin: 05/25/19 09:52 Dose: 25 mg Meclizine HCl (Antivert -) 12.5 mg PO Q6H PRN PRN Reason: VERTIGO Metoprolol Succinate (Toprol Xl -) 50 mg PO [facility] Last Admin: 05/24/19 22:18 Dose: 50 mg Valsartan (Diovan -) 320 mg PO DAILY [facility] Last Admin: 05/25/19 09:52 Dose: 320 mg - Objective Vital Signs: Vital Signs Temperature 99.1 F 05/25/19 13:29 Pulse Rate 58 L 05/25/19 13:29 Respiratory Rate 16 05/25/19 13:29 Blood Pressure 140/53 L 05/25/19 13:29 O2 Sat by Pulse Oximetry (%) 97 05/25/19 07:00 Cardiovascular: Yes: S1, S2 Respiratory: Yes: Regular, CTA Bilaterally Gastrointestinal: Yes: Normal Bowel Sounds, Soft Edema: No Neurological: Yes: Alert, Oriented Labs: CBC, BMP 05/24/19 06:10 05/24/19 06:10 Assessment/Plan - Problems (1) Atrial flutter Assessment/Plan: Cardiology consult Tele monitoring Apaxiban Multaq Code(s): I48.92 - UNSPECIFIED ATRIAL FLUTTER Qualifiers: Atrial flutter type: typical Qualified Code(s): I48.3 - Typical atrial flutter (2) Asthma Assessment/Plan: keep SpO2 >90% O2 via [place] prn for sob bronchodilators Code(s): J45.909 - UNSPECIFIED ASTHMA, UNCOMPLICATED (3) Ataxia Assessment/Plan: Neurology consult fall precaution MRI of brain pending official read PT Code(s): R27.0 - ATAXIA, UNSPECIFIED (4) CAD (coronary artery disease) Assessment/Plan: Atorvastatin Code(s): I25.10 - ATHSCL HEART DISEASE OF [place] CORONARY ARTERY W/O ANG PCTRS (5) CVA (cerebral vascular accident) Assessment/Plan: mri no acute cva__chronic changes-Neuro Atorvastatin PT fall precaution lipid panel neurology and cardiology consult Code(s): I63.9 - CEREBRAL INFARCTION, UNSPECIFIED Qualifiers: CVA mechanism: unspecified Qualified Code(s): I63.9 - Cerebral infarction, unspecified (6) HTN (hypertension) Assessment/Plan: HCT, Valsartan. Metoprolol, AMlodipine low Na diet Code(s): I10 - ESSENTIAL (PRIMARY) HYPERTENSION (7) Vertigo Assessment/Plan: Meclizine Neurology consult pending MRI of brain Code(s): R42 - DIZZINESS AND GIDDINESS (8) Renal insufficiency Assessment/Plan: BUN/Cr 44.8/1.7 monitor renal function Code(s): N28.9 - DISORDER OF KIDNEY AND URETER, UNSPECIFIED
--- NOTE | 2019-05-25 14:55 | EKG ---
Test Reason : Blood Pressure : / mmHG Vent. Rate : 118 BPM Atrial Rate : 118 BPM P-R Int : 192 ms QRS Dur : 104 ms QT Int : 338 ms P-R-T Axes : 000 -54 108 degrees QTc Int : 473 ms SINUS TACHYCARDIA WITH PREMATURE SUPRAVENTRICULAR COMPLEXES AND WITH OCCASIONAL PREMATURE VENTRICULAR COMPLEXES LEFT ANTERIOR FASCICULAR BLOCK CANNOT RULE OUT ANTERIOR INFARCT (CITED ON OR BEFORE 23-MAY-2019) ABNORMAL ECG WHEN COMPARED WITH ECG OF 23-MAY-2019 01:06, PREMATURE VENTRICULAR COMPLEXES ARE NOW PRESENT PREMATURE SUPRAVENTRICULAR COMPLEXES ARE NOW PRESENT T WAVE INVERSION MORE EVIDENT IN LATERAL LEADS Confirmed by Shady Austin MD ([id number]) on 05/25/2019 2:55:31 PM Referred By: Confirmed By:Shady Austin MD
--- NOTE | 2019-05-25 19:19 | CONSULT ---
Consult - text type - Consultation Consultation Note: NEUROLOGY CONSULTATION is greatly appreciated: Events reviewed. Patient examined. This 73 yo RH woman with PMH of HTN, chol, ASHD, Paroxysmal Afib since 2015. Episodic occipital or frontal headaches (approx 1 q 3 wks) x many years. is maintained on: Metoprolol; Olmesartan/Amlodipin/Hcthiazid; Apixaban; Dronedarone; Meclizine; Pravastatin; Cyclobenzaprine; and Medrol for the last few days. On Friday, 05/11 she had the sudden onset of unsteady gait which persisted x 2 day. On Friday, 05/14 she had the sudden onset of a "pop" sensation over the right jaw angle followed by a pulsing, right retroauricular headache radiating upwards to the parietal region and down towards the neck. In [facility] ED, CT of head was performed showing calcification of the basilar artery and diffuse microvascular changes. CT of C spine shows spondylytic changes of bone and disc. Since then, Patient has had complaints of change in gait, noting only, "it is not like before." No vertigo, diplopia, dysphagia, nausea, etc. MRI of brain (reviewed): shows mild diffuse atrophy, B/L basal ganglia lacunar infarcts and diffuse, nearly confluent periventricular microvascular changes. RYAN: Obese. No bruits. Cor: irreg. no external head trauma. S/P B/L TKR NEURO: MS/speech: anxious but normal CN II-XII: Normal without nystagmus Motor: No drift or tremor. Normal strength, tone, bulk and reflexes. Toes downgoing. Sl reduced LOC's Coord: No FTN or HTS dystaxia Sensory: Normal. Romberg neg Gait: Sl wide-based. Sl shuffle IMP: Essentially normal exam with mild B/L motor signs. The gait impairment appears more chronic and would be c/w the HTNsive lacunar infarcts and diffuse microvascular changes seen on MRI. If an event occurred, it was likely on 05/11 when she noted the onset of unsteady gait in her garage. The cause of the right occipital throbbing headache is most likely migraine. R/O rightvertebral artery dissection- but much less likely. SUGGEST: Continue BP control and apixiban 5 mg BID Continue pravastatin. MR Angio of the vertebral arteries and intracranial vessels. Reassure patient and encourage gait with walker and out patient PT. Thank you very much, Suman Long MD
[2019-05-25] MEDS ORDERED: PT OWN MED DRAWER 7, Y5N ONE (21:24)
[2019-05-25] MEDS: ATORVASTATIN CA 10 MG TABLET (FP) PO SCH (21:35)
[2019-05-26] MEDS: VALSARTAN 160 MG TABLET (UD) PO SCH (09:26)
[2019-05-26] MEDS: amLODIPine BESYLATE 5 MG TABLET (FP) PO SCH (09:26)
[2019-05-26] MEDS: APIXABAN 5 MG TABLET PO SCH ×2 (09:26→22:16)
[2019-05-26] MEDS: HYDROCHLOROTHIAZIDE 25 MG TABLET (FP) PO SCH (09:27)
[2019-05-26] MEDS: DRONEDARONE HCL 400 MG TAB (FP) PO SCH ×2 (09:27→22:16)
[2019-05-26] MEDS: COLCHICINE 0.6 MG CAP PO SCH (09:28)
--- NOTE | 2019-05-26 09:42 | PN ---
Progress Note, Physician Chief Complaint: AWAKE ALERT EVENTS REVIEWED SEEN BY NEUROLOGY YESTERDAY AND MRA BRAIN PENDING DENIES CHEST PAIN/SOB/NAUSEA - Current Medication List Current Medications: Active Medications Amlodipine Besylate (Norvasc -) 5 mg PO DAILY [facility] Last Admin: 05/26/19 09:26 Dose: 5 mg Apixaban (Eliquis -) 5 mg PO BID [facility] Last Admin: 05/26/19 09:26 Dose: 5 mg Atorvastatin Calcium (Lipitor -) [address] [facility] Last Admin: 05/25/19 21:35 Dose: 10 mg Colchicine (Colcrys) 0.6 mg PO DAILY [facility] Last Admin: 05/26/19 09:28 Dose: Not Given Dronedarone (Multaq -) 400 mg PO BID [facility] Last Admin: 05/26/19 09:27 Dose: 400 mg Hydrochlorothiazide (Hctz -) 25 mg PO DAILY [facility] Last Admin: 05/26/19 09:27 Dose: 25 mg Meclizine HCl (Antivert -) 12.5 mg PO Q6H PRN PRN Reason: VERTIGO Metoprolol Succinate (Toprol Xl -) [address] [facility] Last Admin: 05/25/19 21:35 Dose: 50 mg Valsartan (Diovan -) 320 mg PO DAILY [facility] Last Admin: 05/26/19 09:26 Dose: 320 mg - Objective Vital Signs: Vital Signs Temperature 98.2 F 05/26/19 08:57 Pulse Rate 65 05/26/19 08:57 Respiratory Rate 18 05/26/19 08:57 Blood Pressure 127/70 05/26/19 08:57 O2 Sat by Pulse Oximetry (%) 99 05/26/19 07:00 Constitutional: Yes: Mild Distress Cardiovascular: Yes: Pulse Irregular Respiratory: Yes: WNL Gastrointestinal: Yes: WNL Genitourinary: Yes: WNL Musculoskeletal: Yes: WNL Extremities: Yes: WNL Edema: No Peripheral Pulses WNL: Yes Neurological: Yes: Unsteady Gait ...Motor Strength: WNL Psychiatric: Yes: WNL Labs: CBC, BMP 05/24/19 06:10 05/24/19 06:10 Problem List - Problems (1) Atrial flutter Code(s): I48.92 - UNSPECIFIED ATRIAL FLUTTER Qualifiers: Atrial flutter type: typical Qualified Code(s): I48.3 - Typical atrial flutter (2) Chronic anticoagulation Code(s): Z79.01 - INTERMEDIATE (CURRENT) USE OF ANTICOAGULANTS (3) Diastolic dysfunction without heart failure Code(s): I51.89 - OTHER ILL-DEFINED HEART DISEASES (4) Hyperlipidemia Code(s): E78.5 - HYPERLIPIDEMIA, UNSPECIFIED Qualifiers: Hyperlipidemia type: pure hypercholesterolemia Qualified Code(s): E78.00 - Pure hypercholesterolemia, unspecified; E78.0 - Pure hypercholesterolemia (5) Hypertensive encephalopathy Code(s): I67.4 - HYPERTENSIVE ENCEPHALOPATHY (6) Asthma Code(s): J45.909 - UNSPECIFIED ASTHMA, UNCOMPLICATED (7) Ataxia Code(s): R27.0 - ATAXIA, UNSPECIFIED (8) Headache Code(s): R51 - HEADACHE Qualifiers: Headache type: unspecified Headache chronicity pattern: unspecified pattern Intractability: not intractable Qualified Code(s): R51 - Headache Assessment/Plan NEUROLOGY EVAL APPRECIATED MRI BRAIN DONE LACUNAR INFARCTS WITH CHRONIC HYPERTENSIVE CHANGES SEEN ON MRI. MRA ORDERED BY NEUROLOGY NEED TO CONTROL BP AND LIPIDS ORDERED LIPID PANEL KEEP LDL <70 ADDED A1C, ESR TO ROUTINE AM LABS TOMORROW OOB TO CHAIR PT EVAL
--- NOTE | 2019-05-26 12:19 | PN ---
Progress Note, Physician History of Present Illness: Unstable gait, dizziness with movement, awaiting MR Angio of the vertebral arteries and intracranial vessels. Remains in NSR w/o recurrence of PAF. She denies chest pain, dyspnea, near or true syncope, palpitations, orthopnea, PND or LE edema. - Current Medication List Current Medications: Active Medications Amlodipine Besylate (Norvasc -) 5 mg PO DAILY [facility] Last Admin: 05/26/19 09:26 Dose: 5 mg Apixaban (Eliquis -) 5 mg PO BID [facility] Last Admin: 05/26/19 09:26 Dose: 5 mg Atorvastatin Calcium (Lipitor -) 10 mg PO [facility] Last Admin: 05/25/19 21:35 Dose: 10 mg Colchicine (Colcrys) 0.6 mg PO DAILY [facility] Last Admin: 05/26/19 09:28 Dose: Not Given Dronedarone (Multaq -) 400 mg PO BID [facility] Last Admin: 05/26/19 09:27 Dose: 400 mg Hydrochlorothiazide (Hctz -) 25 mg PO DAILY [facility] Last Admin: 05/26/19 09:27 Dose: 25 mg Meclizine HCl (Antivert -) 12.5 mg PO Q6H PRN PRN Reason: VERTIGO Metoprolol Succinate (Toprol Xl -) 50 mg PO [facility] Last Admin: 05/25/19 21:35 Dose: 50 mg Valsartan (Diovan -) 320 mg PO DAILY [facility] Last Admin: 05/26/19 09:26 Dose: 320 mg - Objective Vital Signs: Vital Signs Temperature 98.2 F 05/26/19 08:57 Pulse Rate 65 05/26/19 08:57 Respiratory Rate 18 05/26/19 08:57 Blood Pressure 127/70 05/26/19 08:57 O2 Sat by Pulse Oximetry (%) 99 05/26/19 07:00 Constitutional: Yes: No Distress, Calm Neck: Yes: Supple Cardiovascular: Yes: Regular Rate and Rhythm Respiratory: Yes: Regular, CTA Bilaterally Gastrointestinal: Yes: Normal Bowel Sounds, Soft, Abdomen, Obese Edema: No Labs: CBC, BMP 05/24/19 06:10 05/24/19 06:10 - ....Imaging EKG: Report Reviewed (Tele: NSR, no PAF) Problem List - Problems (1) Diastolic dysfunction without heart failure Code(s): I51.89 - OTHER ILL-DEFINED HEART DISEASES (2) Hypertensive heart disease Code(s): I11.9 - HYPERTENSIVE HEART DISEASE WITHOUT HEART FAILURE Qualifiers: Heart failure presence: without heart failure Qualified Code(s): I11.9 - Hypertensive heart disease without heart failure (3) Hyperlipidemia Code(s): E78.5 - HYPERLIPIDEMIA, UNSPECIFIED Qualifiers: Hyperlipidemia type: pure hypercholesterolemia Qualified Code(s): E78.00 - Pure hypercholesterolemia, unspecified; E78.0 - Pure hypercholesterolemia (4) Hypertensive encephalopathy Code(s): I67.4 - HYPERTENSIVE ENCEPHALOPATHY (5) Chronic anticoagulation Code(s): Z79.01 - RESIDENTIAL (CURRENT) USE OF ANTICOAGULANTS (6) Ataxia Code(s): R27.0 - ATAXIA, UNSPECIFIED (7) Atrial fibrillation Code(s): I48.91 - UNSPECIFIED ATRIAL FIBRILLATION Qualifiers: Atrial fibrillation type: paroxysmal Qualified Code(s): I48.0 - Paroxysmal atrial fibrillation (8) CAD (coronary artery disease) Code(s): I25.10 - ATHSCL HEART DISEASE OF [place] CORONARY ARTERY W/O ANG PCTRS Qualifiers: Coronary Disease-Associated Artery/Lesion type: [place] artery [place] vs. transplanted heart: [place] heart Associated angina: without angina Qualified Code(s): I25.10 - Atherosclerotic heart disease of [place] coronary artery without angina pectoris (9) HTN (hypertension) Code(s): I10 - ESSENTIAL (PRIMARY) HYPERTENSION Qualifiers: Hypertension type: essential hypertension Qualified Code(s): I10 - Essential (primary) hypertension (10) Renal insufficiency Code(s): N28.9 - DISORDER OF KIDNEY AND URETER, UNSPECIFIED Assessment/Plan 11/11/2018 Echo: cLVH with normal LV systolic fxn, LVEF 56%, grade II diastolic dysfunction, normal RV size and fxn, mild-mod MR, mild TR September 16, 2018-September 29, 2018, SR, PAF, PVC 04/17/[address]: Cardiomegaly with prominent central pulmonary vasculature suggestive of pulm HTN, mild-mod chronic lung disease, coronary artery calcification 1. Paroxysmal atrial fibrillation with RVR -> NSR 2. Gait ataxia 3. Diastolic dysfunction 4. HTN heart disease 5. HTN encephelopathy ruled out acute stroke 6. Non-obstructive CAD 7. CKD 8. Cervical radiculopathy P: 1. Continue Toprol XL 50 qd, Tribenzor 40/5/25 qd, Eliquis 5 bid, Multaq 400 bid, Pravachol 10 qhs, colchicine 0.6 qd 2. F/u MR Angio of the vertebral arteries and intracranial vessels 3. PT, gait training with walker assistance
--- NOTE | 2019-05-26 15:08 | CONSULT ---
Consult - text type - Consultation Consultation Note: Renal consult for CKD This is a 73 year old woman with history of CKD stage 3, atrial fibrillation on anticoagulation, hypertension, CAD, diastolic dysfunction , who presented from home with abnormal gait and admitted for r/o CVA. She is awake and alert. She has no acute complaints. Her gait is still not normal. She denies any BRIZUELA, confusion, chest pain, shortness of breath, cough, abdominal pain , N/V/D, flank pain, dysuria, frequency or urgency. She has no leg swelling. She denies any NSAID use or contrast exposure. She is planned for MRA w/o contrast. PMHx: as above Allergies: NKDA Family Hx: NC Social Hx: No T/A/D ROS: as per HPI, all other pertinent ros negative. Home Medications Medication Instructions Recorded Metoprolol Succinate [Toprol XL -] 50 mg PO HS 05/21/11 Olmesartan/Amlodipin/Hcthiazid 1 each PO DAILY 08/12/14 [Tribenzor 40-5-25 mg Tablet] Apixaban [Eliquis] 5 mg PO BID 10/06/18 Dronedarone HCl [Multaq -] 400 mg PO BID 10/06/18 Meclizine HCl [Antivert -] 12.5 mg PO PRN PRN 10/06/18 Pravastatin Sodium 10 mg PO HS 10/06/18 Cyclobenzaprine HCl 5 mg PO BID #14 tablet 05/16/19 Methylprednisolone [Medrol -] 4 mg PO QID #30 tablet 05/16/19 Vital Signs Temperature 98.9 F 05/26/19 14:00 Pulse Rate 58 L 05/26/19 14:00 Respiratory Rate 16 05/26/19 14:00 Blood Pressure 132/65 05/26/19 14:00 O2 Sat by Pulse Oximetry (%) 99 05/26/19 07:00 NAD awake and alert neck supple, no JVD RRR, no M/R CTA, no rales or wheeze soft NT/ND, no rebound or guarding no LE edema, clubbing or cyanosis. CBC, BMP 05/24/19 06:10 05/24/19 06:10 Current Medications Amlodipine Besylate (Norvasc -) 5 mg PO DAILY [facility] Last Admin: 05/26/19 09:26 Dose: 5 mg Apixaban (Eliquis -) 5 mg PO BID [facility] Last Admin: 05/26/19 09:26 Dose: 5 mg Atorvastatin Calcium (Lipitor -) 10 mg PO HS [facility] Last Admin: 05/25/19 21:35 Dose: 10 mg Colchicine (Colcrys) 0.6 mg PO DAILY [facility] Last Admin: 05/26/19 09:28 Dose: Not Given Dronedarone (Multaq -) 400 mg PO BID [facility] Last Admin: 05/26/19 09:27 Dose: 400 mg Hydrochlorothiazide (Hctz -) 25 mg PO DAILY [facility] Last Admin: 05/26/19 09:27 Dose: 25 mg Meclizine HCl (Antivert -) 12.5 mg PO Q6H PRN PRN Reason: VERTIGO Metoprolol Succinate (Toprol Xl -) 50 mg PO HS [facility] Last Admin: 05/25/19 21:35 Dose: 50 mg Valsartan (Diovan -) 320 mg PO DAILY [facility] Last Admin: 05/26/19 09:26 Dose: 320 mg 73 year old woman with history of CKD stage 3, atrial fibrillation on anticoagulation, hypertension, CAD, diastolic dysfunction, who presented from home with abnormal gait and admitted for r/o CVA. 1. Impaired gait r/o CVA (no acute CVA noted on MRI) 2. CKD stage 3 3. Hypertension 4. CHF with diastolic dysfunction 5. CAD 6. Afib on Eliquis Renal function stable and near baseline no overt electrolyte or acid/base disturbance noted Continue Valsartan 320mg Dialy Continue Norvasc and HCTZ continue work up as per Neurology would avoid IV contrast given reduced eGFR pain control w/o NSAIDs Trend renal function daily while inpatient. Thank you Loyd Jeronimo DO
[2019-05-26] MEDS: ATORVASTATIN CA 10 MG TABLET (FP) PO SCH (22:16)
[2019-05-27 07:31] LABS: BLOOD UREA NITROGEN 37.5 mg/dL (7-18); CALCIUM 8.7 mg/dL (8.5-10.1); CREATININE 1.8 mg/dL (0.55-1.3); POTASSIUM 3.6 mmol/L (3.5-5.1)
[2019-05-27 08:16] VITALS: BP 113/60; PULSE 58; TEMP 98
[2019-05-27] MEDS: amLODIPine BESYLATE 5 MG TABLET (FP) PO SCH (09:22)
[2019-05-27] MEDS: VALSARTAN 160 MG TABLET (UD) PO SCH (09:22)
[2019-05-27] MEDS: APIXABAN 5 MG TABLET PO SCH (09:22)
[2019-05-27] MEDS: HYDROCHLOROTHIAZIDE 25 MG TABLET (FP) PO SCH (09:22)
[2019-05-27] MEDS: COLCHICINE 0.6 MG CAP PO SCH (09:23)
[2019-05-27] MEDS ORDERED: PT OWN MED DRAWER 7, Y5N ONE (09:27)
[2019-05-27] MEDS: DRONEDARONE HCL 400 MG TAB (FP) PO SCH (09:29)
--- NOTE | 2019-05-27 10:22 | PN ---
Progress Note, Physician History of Present Illness: Unstable gait, dizziness with movement, awaiting MR Angio of the vertebral arteries and intracranial vessels. Remains in NSR w/o recurrence of PAF. She denies chest pain, dyspnea, near or true syncope, palpitations, orthopnea, PND or LE edema. - Current Medication List Current Medications: Active Medications Amlodipine Besylate (Norvasc -) 5 mg PO DAILY [facility] Last Admin: 05/27/19 09:22 Dose: 5 mg Apixaban (Eliquis -) 5 mg PO BID [facility] Last Admin: 05/27/19 09:22 Dose: 5 mg Atorvastatin Calcium (Lipitor -) 10 mg PO [facility] Last Admin: 05/26/19 22:16 Dose: 10 mg Colchicine (Colcrys) 0.6 mg PO DAILY [facility] Last Admin: 05/27/19 09:23 Dose: Not Given Dronedarone (Multaq -) 400 mg PO BID [facility] Last Admin: 05/27/19 09:29 Dose: 400 mg Hydrochlorothiazide (Hctz -) 25 mg PO DAILY [facility] Last Admin: 05/27/19 09:22 Dose: 25 mg Meclizine HCl (Antivert -) 12.5 mg PO Q6H PRN PRN Reason: VERTIGO Metoprolol Succinate (Toprol Xl -) 50 mg PO [facility] Last Admin: 05/26/19 22:16 Dose: 50 mg Valsartan (Diovan -) 320 mg PO DAILY [facility] Last Admin: 05/27/19 09:22 Dose: 320 mg - Objective Vital Signs: Vital Signs Temperature 98.0 F 05/27/19 08:16 Pulse Rate 58 L 05/27/19 08:16 Respiratory Rate 18 05/27/19 08:16 Blood Pressure 113/60 05/27/19 08:16 O2 Sat by Pulse Oximetry (%) 98 05/26/19 22:54 Constitutional: Yes: No Distress, Calm Neck: Yes: Supple Cardiovascular: Yes: Regular Rate and Rhythm Respiratory: Yes: Regular, CTA Bilaterally Gastrointestinal: Yes: Normal Bowel Sounds, Soft Edema: No Labs: CBC, BMP 05/24/19 06:10 05/27/19 06:05 - ....Imaging EKG: Report Reviewed (Tele: NSR, no PAF) Problem List - Problems (1) Diastolic dysfunction without heart failure Code(s): I51.89 - OTHER ILL-DEFINED HEART DISEASES (2) Hypertensive heart disease Code(s): I11.9 - HYPERTENSIVE HEART DISEASE WITHOUT HEART FAILURE Qualifiers: Heart failure presence: without heart failure Qualified Code(s): I11.9 - Hypertensive heart disease without heart failure (3) Hyperlipidemia Code(s): E78.5 - HYPERLIPIDEMIA, UNSPECIFIED Qualifiers: Hyperlipidemia type: pure hypercholesterolemia Qualified Code(s): E78.00 - Pure hypercholesterolemia, unspecified; E78.0 - Pure hypercholesterolemia (4) Hypertensive encephalopathy Code(s): I67.4 - HYPERTENSIVE ENCEPHALOPATHY (5) Chronic anticoagulation Code(s): Z79.01 - LONG-TERM (CURRENT) USE OF ANTICOAGULANTS (6) Ataxia Code(s): R27.0 - ATAXIA, UNSPECIFIED (7) Atrial fibrillation Code(s): I48.91 - UNSPECIFIED ATRIAL FIBRILLATION Qualifiers: Atrial fibrillation type: paroxysmal Qualified Code(s): I48.0 - Paroxysmal atrial fibrillation (8) CAD (coronary artery disease) Code(s): I25.10 - ATHSCL HEART DISEASE OF [place] CORONARY ARTERY W/O ANG PCTRS Qualifiers: Coronary Disease-Associated Artery/Lesion type: [place] artery [place] vs. transplanted heart: [place] heart Associated angina: without angina Qualified Code(s): I25.10 - Atherosclerotic heart disease of [place] coronary artery without angina pectoris (9) HTN (hypertension) Code(s): I10 - ESSENTIAL (PRIMARY) HYPERTENSION Qualifiers: Hypertension type: essential hypertension Qualified Code(s): I10 - Essential (primary) hypertension (10) Renal insufficiency Code(s): N28.9 - DISORDER OF KIDNEY AND URETER, UNSPECIFIED Assessment/Plan 05/26/2019 Brain MRA-Negative for stenosis 11/11/2018 Echo: cLVH with normal LV systolic fxn, LVEF 56%, grade II diastolic dysfunction, normal RV size and fxn, mild-mod MR, mild TR September 16, 2018-September 29, 2018, SR, PAF, PVC 04/17/[address]: Cardiomegaly with prominent central pulmonary vasculature suggestive of pulm HTN, mild-mod chronic lung disease, coronary artery calcification 1. Paroxysmal atrial fibrillation with RVR -> NSR 2. Gait ataxia 3. Diastolic dysfunction 4. HTN heart disease 5. HTN encephelopathy ruled out acute stroke 6. Non-obstructive CAD 7. CKD 3 8. Cervical radiculopathy P: 1. Continue Toprol XL 50 qd, Tribenzor 40/5/25 qd, Eliquis 5 bid, Multaq 400 bid, Pravachol 10 qhs, colchicine 0.6 qd 2. MR Angio of the vertebral arteries and intracranial vessels reviewed 3. PT, gait training with walker assistance 4. D/c planning with f/u in office
--- NOTE | 2019-05-27 10:36 | DS ---
Physical Examination Vital Signs: Vital Signs Temperature 98.0 F 05/27/19 08:16 Pulse Rate 58 L 05/27/19 08:16 Respiratory Rate 18 05/27/19 08:16 Blood Pressure 113/60 05/27/19 08:16 O2 Sat by Pulse Oximetry (%) 98 05/26/19 22:54 Findings/Remarks: Laboratory Last Values WBC 9.7 K/mm3 (4.0-10.0) 05/24/19 06:10 RBC 3.93 M/mm3 (3.60-5.2) 05/24/19 06:10 Hgb 12.5 GM/dL (10.7-15.3) 05/24/19 06:10 Hct 37.9 % (32.4-45.2) 05/24/19 06:10 MCV 96.5 fl (80-96) H 05/24/19 06:10 MCH 31.9 pg (25.7-33.7) 05/24/19 06:10 MCHC 33.1 g/dl (32.0-36.0) 05/24/19 06:10 RDW 13.0 % (11.6-15.6) 05/24/19 06:10 Plt Count 269 K/MM3 (134-434) 05/24/19 06:10 MPV 10.6 fl (7.5-11.1) 05/24/19 06:10 Absolute Neuts (auto) 9.9 K/mm3 (1.5-8.0) H 05/23/19 00:45 Neutrophils % 76.8 % (42.8-82.8) 05/23/19 00:45 Lymphocytes % 13.4 % (8-40) D 05/23/19 00:45 Monocytes % 7.8 % (3.8-10.2) 05/23/19 00:45 Eosinophils % 1.4 % (0-4.5) 05/23/19 00:45 Basophils % 0.6 % (0-2.0) 05/23/19 00:45 Nucleated RBC % 0 % (0-0) 05/23/19 00:45 ESR 25 mm/hr (0-30) 05/27/19 06:05 Sodium 141 mmol/L (136-145) 05/27/19 06:05 Potassium 3.6 mmol/L (3.5-5.1) 05/27/19 06:05 Chloride 106 mmol/L (98-107) 05/27/19 06:05 Carbon Dioxide 27 mmol/L (21-32) 05/27/19 06:05 Anion Gap 8 MMOL/L (8-16) 05/27/19 06:05 BUN 37.5 mg/dL (7-18) H 05/27/19 06:05 Creatinine 1.8 mg/dL (0.55-1.3) H 05/27/19 06:05 Est GFR (CKD-EPI)AfAm 31.36 05/27/19 06:05 Est GFR (CKD-EPI)NonAf 27.06 05/27/19 06:05 POC Glucometer 94 UNITS (80-120) 05/26/19 16:45 Random Glucose 88 mg/dL (74-106) 05/27/19 06:05 Calcium 8.7 mg/dL (8.5-10.1) 05/27/19 06:05 Magnesium 2.5 mg/dL (1.8-2.4) H 05/23/19 08:30 Total Bilirubin 1.5 mg/dL (0.2-1) H 05/24/19 06:10 AST 14 U/L (15-37) L 05/24/19 06:10 ALT 18 U/L (13-61) 05/24/19 06:10 Alkaline Phosphatase 81 U/L (45-117) 05/24/19 06:10 Troponin I 0.03 ng/ml (0.00-0.05) 05/23/19 08:30 Total Protein 7.2 g/dl (6.4-8.2) 05/24/19 06:10 Albumin 3.5 g/dl (3.4-5.0) 05/24/19 06:10 Triglycerides 42 mg/dL (0-150) 05/27/19 06:05 Cholesterol 79 mg/dL (50-200) 05/27/19 06:05 Total LDL Cholesterol 27 mg/dL (5-100) 05/27/19 06:05 HDL Cholesterol 49 mg/dL (40-60) 05/27/19 06:05 Active Medications Generic Name Dose Route Start Last Admin Trade Name Freq PRN Reason Stop Dose Admin Amlodipine Besylate 5 mg 05/23/19 10:00 05/27/19 09:22 Norvasc - PO 5 mg DAILY [facility] Administration Apixaban 5 mg 05/23/19 10:00 05/27/19 09:22 Eliquis - PO 5 mg BID [facility] Administration Atorvastatin Calcium 10 mg 05/23/19 22:00 05/26/19 22:16 Lipitor - PO 10 mg HS [facility] Administration Colchicine 0.6 mg 05/24/19 10:30 05/27/19 09:23 Colcrys PO Not Given DAILY [facility] Dronedarone 400 mg 05/23/19 10:00 05/27/19 09:29 Multaq - PO 400 mg BID [facility] Administration Hydrochlorothiazide 25 mg 05/23/19 10:00 05/27/19 09:22 Hctz - PO 25 mg DAILY [facility] Administration Meclizine HCl 12.5 mg 05/24/19 18:37 Antivert - PO Q6H PRN VERTIGO Metoprolol Succinate 50 mg 05/23/19 22:00 05/26/19 22:16 Toprol Xl - PO 50 mg HS [facility] Administration Valsartan 320 mg 05/23/19 10:00 05/27/19 09:22 Diovan - PO 320 mg DAILY [facility] Administration Constitutional: Yes: No Distress, Calm Eyes: Yes: Conjunctiva Clear HENT: Yes: Atraumatic Cardiovascular: Yes: Regular Rate and Rhythm Respiratory: Yes: Regular, CTA Bilaterally Gastrointestinal: Yes: Normal Bowel Sounds, Soft, Abdomen, Obese Musculoskeletal: Yes: Muscle Weakness Extremities: Yes: WNL Edema: No Neurological: Yes: Alert, Oriented Psychiatric: Yes: Alert, Oriented Labs: CBC, BMP 05/24/19 06:10 05/27/19 06:05 Discharge Summary Problems reviewed: Yes Reason For Visit: ATRIAL FLUTTER Current Active Problems Atrial flutter (Acute) Chronic anticoagulation (Acute) Diastolic dysfunction without heart failure (Acute) Hyperlipidemia (Acute) Hypertensive encephalopathy (Acute) Hypertensive heart disease (Acute) Hospital Course: 73 y/o woman came to hospital requesting brain MRI due to some history of unstable gait. Patient reports that she was seen in emergency room this past Friday for neck pain , Diagnosed with cervical radiculopathy, sent home on muscle relaxant and Medrol that she was taking 4 pills of 4 mg every 4 hours and the next day began to develop ataxia. Patient was seen in [place] [facility] and they recommended brain MRI to rule out CVA. She states that she has not taken any muscle relaxant. Patient came to the emergency room this time around requesting brain MRI to rule out stroke. She states that she is able to ambulate. Patient is able to provide a good history however appears drowsy. Incidentally was found to have SVT on EKG in the emergency room. Patient was evaluated by Cardiology and Neurology. Brain MRI/MRA showed no evidence of aneurysm, vascular malformation or flow limiting stenosis. Patient Brain MRI showed lacunar infarct but no ICH or acute infarction. Patient instructed that she will need to control HTN and high cholesterol with close follow up with PCP and Cardiology. Patient is medically stable for discharge home with PT services. Condition: Stable - Instructions Diet, Activity, Other Instructions: Follow up with PMD in 2 weeks of discharge Follow up with Dr Long (Neurology) for close follow up lacunar infarcts diagnosed via brain mri Follow up with Dr Kelly (Cardiology) for management of HTN and afib low sodium, plant based diet given history of lacunar infarct continue with Pravastatin and have lipid panel checked every 6 months with goal to keep LDL <70 return to ER if change in mental status, slurred speech, sudden weakness on one side of the body, chest pain or respiratory distress Referrals: Delio Cruz MD [Primary Care Provider] - Shy Kelly MD [Staff Physician] - Suman Long MD [Staff Physician] - Disposition: VNS/HOME HEALTH CARE - Home Medications Comprehensive Discharge Medication List: Ambulatory Orders Metoprolol Succinate [Toprol XL -] 50 mg PO HS 05/21/11 Olmesartan/Amlodipin/Hcthiazid [Tribenzor 40-5-25 mg Tablet] 1 each PO DAILY [facility] [Eliquis] 5 mg PO BID 10/06/18 Dronedarone HCl [Multaq -] 400 mg PO BID 10/06/18 Meclizine HCl [Antivert -] 12.5 mg PO PRN PRN 10/06/18 Cyclobenzaprine HCl 5 mg PO BID #14 tablet 05/16/19 Methylprednisolone [Medrol -] 4 mg PO QID #30 tablet 05/16/19 Colchicine [Colcrys] 0.6 mg PO DAILY #30 cap 05/27/19 Pravastatin Sodium 10 mg PO HS #30 tablet 05/27/19
--- NOTE | 2019-05-27 13:33 | PN ---
Progress Note (short form) - Note Progress Note: Renal follow up for CKD Seen and examined at the bedside awake and alert offers no acute complaints no sob, cp, fever, chills, N/V/D legs still weak but better able to ambulate with walker Vital Signs Temperature 98.0 F 05/27/19 08:16 Pulse Rate 58 L 05/27/19 08:16 Respiratory Rate 18 05/27/19 08:16 Blood Pressure 113/60 05/27/19 08:16 O2 Sat by Pulse Oximetry (%) 98 05/26/19 22:54 Intake & Output 05/24/19 05/25/19 05/26/19 05/27/19 23:59 23:59 23:59 23:59 Intake Total 865 1820 1680 1100 Output Total 2 1 Balance 863 1819 1680 1100 NAD RRR, no M/R CTA, no rales or wheeze soft NT/ND, no rebound or guarding no LE edema, clubbing or cyanosis. CBC, BMP 05/24/19 06:10 05/27/19 06:05 Current Medications Amlodipine Besylate (Norvasc -) 5 mg PO DAILY [facility] Last Admin: 05/27/19 09:22 Dose: 5 mg Apixaban (Eliquis -) 5 mg PO BID [facility] Last Admin: 05/27/19 09:22 Dose: 5 mg Atorvastatin Calcium (Lipitor -) 10 mg PO HS [facility] Last Admin: 05/26/19 22:16 Dose: 10 mg Colchicine (Colcrys) 0.6 mg PO DAILY [facility] Last Admin: 05/27/19 09:23 Dose: Not Given Dronedarone (Multaq -) 400 mg PO BID [facility] Last Admin: 05/27/19 09:29 Dose: 400 mg Hydrochlorothiazide (Hctz -) 25 mg PO DAILY [facility] Last Admin: 05/27/19 09:22 Dose: 25 mg Meclizine HCl (Antivert -) 12.5 mg PO Q6H PRN PRN Reason: VERTIGO Metoprolol Succinate (Toprol Xl -) 50 mg PO HS [facility] Last Admin: 05/26/19 22:16 Dose: 50 mg Valsartan (Diovan -) 320 mg PO DAILY [facility] Last Admin: 05/27/19 09:22 Dose: 320 mg 73 year old woman with history of CKD stage 3, atrial fibrillation on anticoagulation, hypertension, CAD, diastolic dysfunction, who presented from home with abnormal gait and admitted for r/o CVA. 1. Impaired gait r/o CVA (no acute CVA noted on MRI) 2. CKD stage 3 3. Hypertension 4. CHF with diastolic dysfunction 5. CAD 6. Afib on Eliquis Renal function stable and near baseline no overt electrolyte or acid/base disturbance noted Continue Valsartan 320mg Daily Continue Norvasc and HCTZ outpatient neurology followup to follow up with Dr. Hedrick regarding renal function as an outpatient. Thank you Loyd Jeronimo DO
== END 2019-05-27 17:27 | disposition home health service (06) | DRG 57 ==
LOC: JER 23:02 → JERBED 05-23 02:15 → INTOOBSV 05-23 02:15 → J4S 05-24 15:44 → OBSVTOIN 05-26 10:08
PROVIDERS: ADMIT Internal Medicine; ATTEND Family Medicine
DX: I69.393 Ataxia following cerebral infarction (principal); I47.1 Supraventricular tachycardia; I48.3 Typical atrial flutter; I67.4 Hypertensive encephalopathy; I69.398 Other sequelae of cerebral infarction; I48.0 Paroxysmal atrial fibrillation; E78.5 Hyperlipidemia, unspecified; I25.10 Atherosclerotic heart disease of native coronary artery without angina pectoris; R26.81 Unsteadiness on feet; E04.9 Nontoxic goiter, unspecified; J45.909 Unspecified asthma, uncomplicated; R42 Dizziness and giddiness; N28.9 Disorder of kidney and ureter, unspecified; E66.9 Obesity, unspecified; Z68.39 Body mass index [BMI] 39.0-39.9, adult; I11.9 Hypertensive heart disease without heart failure; M50.10 Cervical disc disorder with radiculopathy, unspecified cervical region; I13.10 Hypertensive heart and chronic kidney disease without heart failure, with stage 1 through stage 4 chronic kidney disease, or unspecified chronic kidney disease; N18.3 Chronic kidney disease, stage 3 (moderate); R51 Headache; Z79.01 Long term (current) use of anticoagulants
CPT/HCPCS: 36415; 70544-TC; 70551-TC; 71045-TC-FY; 80048; 80053; 80061; 82962; 83036; 83721; 83735; 84484; 85025; 85027; 85651; 93005; 93010; 97116-GP; 97161-GP; 99285-25; G0378